=== PATIENT | male | born 1950 | race Caucasian/White ===

== ENCOUNTER 2016-09-04 03:36 | Emergency (ER) | payer OTHER ==
[2016-09-04] MEDS ORDERED: Ketorolac INJ* 60 MG/2 ML VIAL IM ONE (04:24)
[2016-09-04 05:40] VITALS: BP 127/71
--- NOTE | 2016-09-04 08:11 | RAD ---
HISTORY: Fall COMPARISONS: None VIEWS: 4, Frontal and oblique views of the right hemithorax. FINDINGS: There is no displaced rib fracture or pneumothorax. The visualized lungs are clear. Degenerative changes are noted of the spine and right shoulder IMPRESSION: NO DISPLACED RIB FRACTURE OR PNEUMOTHORAX
--- NOTE | 2016-10-18 01:52 | ED ---
Slava Jacobsen Aidan, scribed for Onel Sorensen MD on 09/04/16 at 0437 . HPI Chest Pain - HPI Summary HPI Summary: 66 y/o male presents to the ED with a complaint of acute, constant, mild (07/27) , right-sided, sharp ribcage pain that began 2 days ago. Yesterday, he tool Tylenol, which did not alleviate his pain. 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 Additionally, he has had a productive cough for the past 2 days. Pt denies any SOB/N/V/diaphoresis. - History of Current Complaint Chief Complaint: EDChestWallPain Time Seen by Provider: 09/04/16 03:54 Hx Obtained From: Patient Onset/Duration: Started Days Ago, Still Present Timing: Constant, Lasting Days Initial Severity: Mild Current Severity: Mild Pain Intensity: 1 Pain Scale Used: 0-10 Numeric Chest Pain Location: Mid Sternal - "ribcage" pain Chest Pain Radiates: No Chest Pain Radiates To:: Other - does not radiate Character: Sharp/Stabbing Aggravating Factor(s): Other: - unknown Alleviating Factor(s): Other: - unknown Associated Signs and Symptoms: Positive: Chest Pain, Cough, Productive Cough - Allergy/Home Medications Allergies/Adverse Reactions: Allergies Allergy/AdvReac Type Severity Reaction Status Date / Time No Known Allergies Allergy Verified 09/19/16 04:50 Home Medications: Home Medications Ibuprofen [Ibuprofen 200 MG] 200 mg PO DAILY PRN 09/04/16 [History Confirmed 12/01] PMH/Surg Hx/FS Hx/Imm Hx Endocrine/Hematology History: Denies: Hx Anticoagulant Therapy, Hx Diabetes, Hx Thyroid Disease Cardiovascular History: Reports: Hx Hypertension - Hx OF , MEDS D/C, STATES BP GOOD Denies: Hx Congestive Heart Failure, Hx Deep Vein Thrombosis, Hx Myocardial Infarction, Hx Pacemaker/ICD Respiratory History: Denies: Hx Asthma, Hx Chronic Obstructive Pulmonary Disease (COPD), Hx Lung Cancer, Hx Pneumonia, Hx Pulmonary Embolism GI History: Reports: Other GI Disorders - RIGHT INGUINAL HERNIA REPAIR 1986 Denies: Hx Gall Bladder Disease, Hx Gastrointestinal Bleed, Hx Ulcer, Hx Urosepsis History: Reports: Hx Kidney Stones, Other Problems/Disorders - ENLARGED PROSTATE Denies: Hx Renal Disease Musculoskeletal History: Reports: Hx Arthritis - KNEES, HANDS, GENERALIZED, Other Musculoskeletal History - 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 [id number] Sensory History: Reports: Hx Cataracts - BEGINNING OF, MILD 2014, Hx Contacts or Glasses - GLASSES Denies: Hx Hearing Aid Opthamlomology History: Reports: Hx Cataracts - BEGINNING OF, MILD 2014, Hx Contacts or Glasses - GLASSES Neurological History: Reports: Other Neuro Impairments/Disorders - 2010 FELL INJURED LEFT SHOULDER SKIN TINGLES Denies: Hx Dementia, Hx Migraine, Hx Seizures, Hx Transient Ischemic Attacks (TIA) Psychiatric History: Denies: Hx Anxiety, Hx Depression, Hx Schizophrenia, Hx Bipolar Disorder - Surgical History Surgery Procedure, Year, and Place: 1949 REATTACHMENT [place] RIGHT HAND- - [facility] [place]. 1986 RIGHT [place]GU[place] [facility] [place]. 1984 & 1997 [place] [facility] [place]. 2009 PARTIAL AMPUTATION OF LEFT THUMB- [facility]. 09/2014 LEFT TOTAL HIP REPLACEMENT- [facility], [facility]. 12/12/2015 BLADDER STONE REMOVED [facility] Hx Anesthesia Reactions: No - Immunization History Date of Tetanus Vaccine: utd Date of Influenza Vaccine: utd Infectious Disease History: No Infectious Disease History: Denies: Hx Hepatitis, Hx Human Immunodeficiency Virus (HIV), Traveled Outside the [place] in Last 30 Days - Family History Known Family History: Positive: Cardiac Disease Negative: Hypertension, Diabetes - Social History Occupation: Retired Lives: With Family Alcohol Use: Daily Alcohol Amount: 2 BEERS/DAY Substance Use Type: Reports: None Smoking Status (MU): Never Smoked Tobacco Have You Smoked in the Last Year: No Review of Systems Constitutional: Negative Eyes: Negative ENT: Negative Positive: Chest Pain. Negative: Palpitations Positive: Cough. Negative: Shortness Of Breath Gastrointestinal: Negative Genitourinary: Negative Musculoskeletal: Negative Skin: Negative Neurological: Negative Psychological: Normal All Other Systems Reviewed And Are Negative: Yes Physical Exam Triage Information Reviewed: Yes Vital Signs On Initial Exam: Initial Vitals Temp Pulse Resp BP Pulse Ox 97.8 F 64 16 179/83 98 09/04/16 03:40 09/04/16 03:40 09/04/16 03:40 09/04/16 03:40 09/04/16 03:40 Vital Signs Reviewed: Yes Appearance: Positive: Well-Appearing, No Pain Distress Skin: Positive: Warm Head/Face: Positive: Normal Head/Face Inspection Eyes: Positive: YASMINE ENT: Positive: Hearing grossly normal Neck: Positive: Supple Respiratory/Lung Sounds: Positive: Clear to Auscultation, Breath Sounds Present Cardiovascular: Positive: RRR Abdomen Description: Positive: Nontender, Soft Bowel Sounds: Positive: Present Musculoskeletal: Positive: Strength/ROM Intact Neurological: Positive: Sensory/Motor Intact, Alert, Oriented to Person Place, Time Psychiatric: Positive: Affect/Mood Appropriate - [place] Coma Scale Coma Scale Total: 15 Diagnostics - Vital Signs Vital Signs Temp Pulse Resp BP Pulse Ox 09/04/16 03:40 97.8 F 64 16 179/83 98 - Laboratory Lab Statement: Any lab studies that have been ordered have been reviewed, and results considered in the medical decision making process. - Radiology CHEST XR Xray Interpretation: No Acute Changes - IMPRESSION: NEGATIVE Radiology Interpretation Completed By: ED Physician - DR SORENSEN - EKG EKG 0350 Cardiac Rate: NL - 62 BPM EKG Rhythm: Sinus Rhythm EKG Interpretation: NORMAL Chest Pain Course/Dx - Diagnoses Provider Diagnoses: Chest wall pain Discharge - Discharge Plan Condition: Stable Disposition: HOME Discharge Disposition Comment: Please follow up with your primary care physician. Patient Education Materials: Chest Wall Pain (ED) Referrals: Leroy Harris MD [Primary Care Provider] - The documentation as recorded by the Slava clayton Aidan accurately reflects the service I personally performed and the decisions made by , Onel Sorensen MD.
== END 2016-09-04 05:38 | disposition home or self-care (01) ==
LOC: ED 03:36
DX: R07.89 Other chest pain (principal); R05 Cough
CPT/HCPCS: 93005; 96374; 99283; J1885

== ENCOUNTER 2016-09-19 04:38 | Inpatient (IN) | payer OTHER ==
[2016-09-19] MEDS ORDERED: Morphine INJ* 4 MG/ML 1 ML CARPUJECT IV ONE (04:54)
[2016-09-19 05:17] LABS: Hematocrit 38 % (42-52); Hemoglobin 12.5 g/dl (14.0-18.0); Mean Corpuscular HGB Conc 33 g/dl (31-36); Mean Corpuscular Hemoglobin 31 pg (27-31); Mean Corpuscular Volume 93 fL (80-94); Mean Platelet Volume 9 um3 (7.4-10.4); Red Blood Count 4.03 10^6/ul (4.0-5.4); Red Cell Distribution Width 13 % (10.5-15); White Blood Count 12.6 10^3/ul (3.5-10.8)
[2016-09-19 05:19] LABS: Comments Flag Yes
[2016-09-19 05:20] LABS: Add Diff/Slide Review? Slide Review Added
--- NOTE | 2016-09-19 05:21 | ED ---
Cheryl Jacobsen SooYoung, scribed for Onel Sorensen MD on 09/19/16 at 0458 . HPI Chest Pain - HPI Summary HPI Summary: A 66 y/o M SLOANE presents to ED with R-sided chest pain radiating to his kidneys onset 033. Pert PMHx: recent dx of two masses in R lobe of lung. Pain is described as sharp. Has not taken any pain medication. He is scheduled for a needle biopsy tomorrow. - History of Current Complaint Chief Complaint: EDChestWallPain Time Seen by Provider: 09/19/16 04:42 Hx Obtained From: Patient, Medical Records Onset/Duration: Started Hours Ago, Still Present Current Severity: Severe Pain Intensity: 8 Pain Scale Used: 0-10 Numeric Chest Pain Location: Right Lateral Chest Pain Radiates: Yes Chest Pain Radiates To:: Flank - R kidney Character: Sharp/Stabbing - Allergy/Home Medications Allergies/Adverse Reactions: Allergies Allergy/AdvReac Type Severity Reaction Status Date / Time No Known Allergies Allergy Verified 09/19/16 04:50 PMH/Surg Hx/FS Hx/Imm Hx Previously Healthy: No Endocrine/Hematology History: Denies: Hx Anticoagulant Therapy, Hx Diabetes, Hx Thyroid Disease Cardiovascular History: Reports: Hx Hypertension - Hx OF , MEDS D/C, STATES BP GOOD Denies: Hx Congestive Heart Failure, Hx Deep Vein Thrombosis, Hx Myocardial Infarction, Hx Pacemaker/ICD Respiratory History: Denies: Hx Asthma, Hx Chronic Obstructive Pulmonary Disease (COPD), Hx Lung Cancer, Hx Pneumonia, Hx Pulmonary Embolism GI History: Reports: Other GI Disorders - RIGHT INGUINAL HERNIA REPAIR 1986 Denies: Hx Gall Bladder Disease, Hx Gastrointestinal Bleed, Hx Ulcer, Hx Urosepsis History: Reports: Hx Kidney Stones, Other Problems/Disorders - ENLARGED PROSTATE Denies: Hx Dialysis, Hx Renal Disease Musculoskeletal History: Reports: Hx Arthritis - KNEES, HANDS, GENERALIZED, Other Musculoskeletal History - 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 [id number] Sensory History: Reports: Hx Cataracts - BEGINNING OF, MILD 2014, Hx Contacts or Glasses - GLASSES Denies: Hx Hearing Aid Opthamlomology History: Reports: Hx Cataracts - BEGINNING OF, MILD 2014, Hx Contacts or Glasses - GLASSES Neurological History: Reports: Other Neuro Impairments/Disorders - 2010 FELL INJURED LEFT SHOULDER SKIN TINGLES Denies: Hx Dementia, Hx Migraine, Hx Seizures, Hx Transient Ischemic Attacks (TIA) Psychiatric History: Denies: Hx Anxiety, Hx Depression, Hx Schizophrenia, Hx Bipolar Disorder - Surgical History Surgery Procedure, Year, and Place: 1949 REATTACHMENT [place] RIGHT HAND- - [place]. 1986 RIGHT INGUINAL HERN[place] REPAIR- [place]. 1984 & 1997 BILATERAL [place]COPIC [place] AND [facility]. 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 09/2014 LEFT TOTAL HIP REPLACEMENT- [facility] [place]. 12/12/2015 BLADDER STONE REMOVED [facility] Hx Anesthesia Reactions: No - Immunization History Date of Tetanus Vaccine: utd Date of Influenza Vaccine: utd Infectious Disease History: Denies: Hx Hepatitis, Hx Human Immunodeficiency Virus (HIV), Traveled Outside the [place] in Last 30 Days - Family History Known Family History: Positive: Cardiac Disease Negative: Hypertension, Diabetes - Social History Occupation: Retired Lives: With Family Alcohol Use: Daily Alcohol Amount: 2 BEERS/DAY Substance Use Type: Reports: None Smoking Status (MU): Never Smoked Tobacco Have You Smoked in the Last Year: No Review of Systems Negative: Fever Positive: Chest Pain All Other Systems Reviewed And Are Negative: Yes Physical Exam Triage Information Reviewed: Yes Vital Signs On Initial Exam: Initial Vitals Temp Pulse Resp BP Pulse Ox 98.8 F 75 23 140/64 98 09/19/16 04:40 09/19/16 04:40 09/19/16 04:40 09/19/16 04:40 09/19/16 04:40 Vital Signs Reviewed: Yes Appearance: Positive: Well-Appearing, Pain Distress - mild discomfort Skin: Positive: Warm Head/Face: Positive: Normal Head/Face Inspection Eyes: Positive: YASMINE ENT: Positive: Hearing grossly normal Neck: Positive: Supple Respiratory/Lung Sounds: Positive: Clear to Auscultation, Breath Sounds Present Cardiovascular: Positive: RRR Abdomen Description: Positive: Nontender, Soft Bowel Sounds: Positive: Present Musculoskeletal: Positive: Strength/ROM Intact Neurological: Positive: Alert, Oriented to Person Place, Time, Normal Gait - Brooke Coma Scale Coma Scale Total: 15 Diagnostics - Vital Signs Vital Signs Temp Pulse Resp BP Pulse Ox 09/19/16 04:40 98.8 F 75 23 140/64 98 - Laboratory Lab Results: Lab Results 09/19/16 Range/Units 05:05 WBC 12.6 H (3.5-10.8) 10^3/ul RBC 4.03 (4.0-5.4) 10^6/ul Hgb 12.5 L (14.0-18.0) g/dl Hct 38 L (42-52) % MCV 93 (80-94) fL MCH 31 (27-31) pg MCHC 33 (31-36) g/dl RDW 13 (10.5-15) % Plt Count 424 (150-450) 10^3/ul MPV 9 (7.4-10.4) um3 Neut % (Auto) 88.1 H (38-83) % Lymph % (Auto) 5.8 L (25-47) % [place] % (Auto) 4.8 (1-9) % Eos % (Auto) 1.0 (0-6) % Baso % (Auto) 0.3 (0-2) % Absolute Neuts (auto) 11.1 H (1.5-7.7) 10^3/ul Absolute Lymphs (auto) 0.7 L (1.0-4.8) 10^3/ul Absolute Monos (auto) 0.6 (0-0.8) 10^3/ul Absolute Eos (auto) 0.1 (0-0.6) 10^3/ul Absolute Basos (auto) 0 (0-0.2) 10^3/ul Absolute Nucleated RBC 0 10^3/ul Nucleated RBC % 0 Result Diagrams: 09/19/16 05:05 09/19/16 05:05 Lab Statement: Any lab studies that have been ordered have been reviewed, and results considered in the medical decision making process. - Radiology CXR Xray Interpretation: Positive (See Comments) - MASS, RIGHT MIDDLE LUNG FIELD ? rml infiltrate Radiology Interpretation Completed By: ED Physician Chest Pain Course/Dx - Diagnoses Provider Diagnoses: Pneumonia - Provider Notifications Discussed Care Of Patient With: Spoke to Dr. Easley hospitalist Time Discussed With Above Provider: 05:44 Instructed by Provider To: Admit As Inpatient Discharge - Discharge Plan Condition: Fair Disposition: ADMITTED TO [facility] Referrals: Leroy Harris MD [Primary Care Provider] - The documentation as recorded by the Cheryl clayton SooYoung accurately reflects the service I personally performed and the decisions made by , Onel Sorensen MD.
[2016-09-19 05:26] LABS: Potassium 4.3 mmol/L (3.5-5.0)
[2016-09-19 05:27] LABS: Albumin 3.4 g/dL (3.2-5.2); Calcium 8.6 mg/dL (8.6-10.3); EGFR African American 83.8 (>60); EGFR Non-African American 65.2 (>60); Globulin 3.6 g/dL (2-4); Total Bilirubin 0.4 mg/dL (0.2-1.0)
[2016-09-19] MEDS ORDERED: Azithromycin IV(*) 500 MG in NS 0.9% 250 ML* 250 ML IVPB ONE (05:43)
[2016-09-19] MEDS ORDERED: cefTRIAXone(*) 1 GM in NS 0.9% 50 ML* 50 ML IVPB ONE (05:43)
[2016-09-19] MEDS ORDERED: HYDROmorphone INJ* 1 MG/ML CARPUJECT SYRINGE IV SLOW PU ONE (05:56)
[2016-09-19 06:13] LABS: Eosinophils % 1 % (0-6); Immature Granulocytes 1 % (0-9); Neutrophil % 82 % (38-83)
[2016-09-19 06:14] LABS: RBC Morphology Normal (Normal)
[2016-09-19] MEDS ORDERED: HYDROmorphone INJ* 1 MG/ML CARPUJECT SYRINGE IV SLOW PU PRN (06:16)
[2016-09-19] MEDS ORDERED: Diclofenac Sodium EC TAB* 25 MG PO PRN (06:44)
--- NOTE | 2016-09-19 07:28 | RAD ---
INDICATION: Chest pain. COMPARISON: Comparison is made with a prior chest x-ray study from July 01, [address] of the chest from September 13, 2016. TECHNIQUE: Dual-energy PA and lateral views of the chest were obtained. FINDINGS: The heart is within normal limits in size and unchanged. There is a focal area of increased density present at the medial right lung base. This correlates with the mass noted on the recent prior CT of the chest. There appears to be an adjacent infiltrate. The left lung is clear. No pleural effusion is seen. IMPRESSION: THERE IS INCREASED DENSITY AT THE RIGHT LUNG BASE WHICH CORRELATES WITH THE MASS ON THE PRIOR CT STUDY. THERE APPEARS TO BE A NEW ADJACENT INFILTRATE. NOTED IN THE PRIOR CT EXAM REPORT RECOMMEND HISTOLOGIC SAMPLING OF THE MASS.
[2016-09-19] MEDS ORDERED: Enoxaparin(*) 40 MG/0.4 ML SYR SUBCUT SCH (08:00)
[2016-09-19] MEDS: Tamsulosin CAP* 0.4 MG PO SCH (09:45)
[2016-09-19] MEDS: Cholecalciferol TAB* 1000 UNITS PO SCH (09:45)
--- NOTE | 2016-09-19 11:14 | HP ---
HISTORY AND PHYSICAL: DATE OF ADMISSION: 09/19/16 CHIEF COMPLAINT: Chest pain. HISTORY OF PRESENT ILLNESS: Mr. Mcdonnell is a 66-year-old man with recent normal findings on a chest CT, who woke with severe pain in his right lower thorax at around 3 a.m. this morning. The pain was 10/10 and worse with coughing or deep breath as well as associated with shortness of breath. The patient could not get comfortable on any position and as a result his called the ambulance and he was brought to the emergency department. The patient reports he has been having a cough for about 2 to 3 weeks when he was seen in the emergency department here about 10 days ago. At that time, there was a concern of an injury to the chest wall and he had rib films that were negative for fracture. He saw the nurse practitioner in his primary care office subsequent to that and reported cough productive of pink sputum and thick sputum. A CT of the chest was ordered at that time, which revealed a nodular mass in the right lower lobe. The patient has a biopsy of this mass planned on Tuesday. The patient denies any history of lung disease such as asthma or COPD. He does report he has had bronchitis 1 to 2 times per year since age of 9, and he reports that he grew up living near a [facility]. PAST MEDICAL HISTORY: Includes nephrolithiasis, BPH, and a bout of Lyme disease from 2008 to 2011, osteoarthritis. PAST SURGICAL HISTORY: Left lithotripsy in February 2016 and a hip replacement on the left 2014. MEDICATIONS: On admission, 1. Diclofenac 50 mg p.o. daily. 2. Tamsulosin 0.4 mg p.o. daily. ALLERGIES: None. FAMILY HISTORY: Notable for mother who had history of fungal sinus infection, mother had colon cancer and then had liver metastasis about 10 years later. She ended up dying of liver failure. Father of emphysema that led to systemic infection. 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 He is ,e has 2 children from previous marriage. The patient never smoked tobacco. Drinks alcohol about 2 drinks per day. No recreational drugs. REVIEW OF SYSTEMS: The patient denies any fevers, but he has had sweats and chills over the last week. The patient denies anorexia, he has been eating well. The patient denies any peripheral edema. He has had pleuritic chest pain mainly in the last 12 hours. The patient denies any nausea, vomiting, diarrhea, or constipation. He does report this cough for 3 weeks. Denies any vivian hemoptysis but he has had pink sputum. The patient denies any hematuria or dysuria. Remainder of a 14-point review of systems negative other than mentioned in the HPI. PHYSICAL EXAMINATION GENERAL: He is an elder gentleman, in no respiratory distress but wincing in pain. VITAL SIGNS: Temperature is 38.2, pulse 75, respirations 24 to 29, blood pressure is 134/65, O2 sat is 99%. HEENT: Head is normocephalic, atraumatic. Sclerae anicteric. Pupils are equal , round, and reactive to light and accommodation. Oropharynx is moist. No lesions. NECK: No JVD. No carotid bruits. No thyromegaly. There is no cervical adenopathy. No axillary adenopathy. LUNGS: Dull to percussion at the right base. Diminished breath sounds but no rales or wheezes. HEART: Regular rate and rhythm without murmurs or gallops. ABDOMEN: Soft, nontender, nondistended. Positive bowel sounds. No hepatosplenomegaly. EXTREMITIES: No peripheral edema. Dorsalis pedis pulses 1+ bilaterally. MUSCULOSKELETAL: Notable for the tip of the left thumb amputated and well healed. There is also a large scar in the right arm from previous reconstructive surgery. NEUROLOGIC: Cranial nerves II through XII are intact. Motor strength is 5/5 throughout. Deep tendon reflexes are symmetric. PSYCHIATRIC: Alert and oriented x3. He is quite irritable. DIAGNOSTIC STUDIES/LAB DATA: Sodium 132, potassium 4.3, chloride 100, bicarb 27, BUN 19, creatinine 1.12, glucose 145, albumin 3.4, AST 12, ALT 13, bilirubin 0.4. White count 12.6, hemoglobin 12.5, hematocrit 38.7, platelets 424. Chest x-ray shows a right lower lobe nodular infiltrate. ASSESSMENT AND PLAN: A 66-year-old man presenting with pleuritic pain, fever, and a lung mass on CT chest on September 13. Differential would include lung cancer with a postobstructive pneumonia. He also may have a primary pneumonic process tuberculosis fungal infection. The patient will be admitted and treated for pneumonia with ceftriaxone and azithromycin. He will also have supplemental oxygen and pain control. The patient will have biopsy tomorrow as planned, and we will we will ask interventional radiology to send sample for AFB , fungal, bacterial cultures as well as cytology. Code status is full. DVT prophylaxis should be with sequential compression devices and Lovenox given that he may have lung cancer and has a high risk of PE. CC: Dr. Harris; Dr. Wang * [id number]/[facility] #: [id number] [facility]
[2016-09-19] MEDS: HYDROmorphone INJ* 1 MG/ML CARPUJECT SYRINGE IV SLOW PU PRN ×4 (11:17→21:41)
--- NOTE | 2016-09-19 14:06 | RAD ---
INDICATION: Right flank abdominal pain. COMPARISON: Comparison is made with a prior CT of the chest from September 13, [address] of the abdomen and pelvis from January 21, 2016. TECHNIQUE: A CT scan of the abdomen and pelvis was performed without intravenous or oral contrast. Contiguous axial sections were obtained from the lung bases through the symphysis pubis. Images were reconstructed in the coronal and sagittal planes. FINDINGS: Images at the lung bases again demonstrate a mass present anteriorly at the medial right lung base. This measures 7.0 x 5.2 cm in size and has increased in size from the prior exam previously measuring 5.7 x 4.2 cm. This is not as well-defined as on the prior contrast enhanced study. There is a second mass located posterior to this area which measures 2.9 x 2.4 cm in size which has also increased in size and previously measured 1.8 x 1.2 cm in size. There is a new infiltrate at the right lung base and a new small to moderate size right pleural effusion. The liver is mildly enlarged. There is a solitary coarse calcification centrally within the liver. No other focal abnormalities are seen on this noncontrast study. The spleen is within normal limits in size. The gallbladder appears contracted. No calcified gallstones are seen. The pancreas appears to be within normal limits. The adrenal glands are enlarged suggesting the possibility of a adrenal gland hyperplasia. This is unchanged from the prior study. There is a 0.5 cm calculus present in the upper pole of the right kidney which is unchanged. There is a hypodense area present in the mid pole of the right kidney measuring 1.2 x 0.8 cm in size likely representing a cyst on this noncontrast study although nonspecific. There are several left peripelvic renal cysts present. No hydronephrosis is seen. No ureteral or bladder calculi are seen. The aorta is normal in caliber with mild calcific plaque present. No significant enlarged retroperitoneal lymph nodes are seen. The stomach, small and large bowel appear nondistended. There is a small hiatal hernia present. The appendix appears to be within normal limits. There is moderate to severe descending and sigmoid diverticulosis without evidence for diverticulitis. No free intraperitoneal air or fluid is seen. The patient is status post total right hip replacement surgery. No significant focal osseous and normalities are seen. IMPRESSION: 1. INTERVAL INCREASE IN SIZE OF THE MASSES PRESENT AT THE RIGHT LUNG BASE. RECOMMEND HISTOLOGIC SAMPLING. 2. NEW RIGHT PLEURAL EFFUSION AND RIGHT BASILAR INFILTRATE. 3. NONOBSTRUCTING RIGHT RENAL CALCULUS.
--- NOTE | 2016-09-19 17:34 | PN ---
Progress Note - Progress Note Note: Pt seen briefly this afternoon to discuss pain control and plans for tomorrow. Pt's pain has been under slightly better control. He describes pain at the right lower ribs laterally wrapping around to the front slightly. He underwent CT abd/pelvis to r/o ureteral stone-no ureteral stone was identified. I suspect his pain is pleuritic in nature as it hurts the most to take a deep breath. The CT today showed that the 2 previously identified masses are larger than 6 days ago now with right small to moderate pleural effusion with right basilar infiltrate. Continue ceftriaxone and azithromycin. Will touch base with Dr. Daugherty tomorrow for Abx guidance. Plan to get biopsy tomorrow.
[2016-09-19 17:45] LABS: Urine Bilirubin Negative (Negative); Urine Glucose Negative (Negative); Urine Nitrite Negative (Negative)
[2016-09-20] MEDS: HYDROmorphone INJ* 1 MG/ML CARPUJECT SYRINGE IV SLOW PU PRN ×6 (01:53→20:05)
[2016-09-20 06:53] LABS: Hematocrit 38 % (42-52); Hemoglobin 12.3 g/dl (14.0-18.0); Mean Corpuscular HGB Conc 32 g/dl (31-36); Mean Corpuscular Hemoglobin 30 pg (27-31); Mean Corpuscular Volume 94 fL (80-94); Mean Platelet Volume 9 um3 (7.4-10.4); Red Blood Count 4.07 10^6/ul (4.0-5.4); Red Cell Distribution Width 13 % (10.5-15); White Blood Count 24.6 10^3/ul (3.5-10.8)
[2016-09-20 07:09] LABS: Comments Flag Yes
[2016-09-20 07:10] LABS: Add Diff/Slide Review? Slide Review Added; BUN/Creatinine Ratio 18.4 (8-20); Calcium 8.7 mg/dL (8.6-10.3); EGFR African American 97.8 (>60); EGFR Non-African American 76.1 (>60); Potassium 4.4 mmol/L (3.5-5.0)
[2016-09-20] MEDS ORDERED: Azithromycin IV(*) 500 MG in NS 0.9% 250 ML* 250 ML IVPB SCH ×2 (08:00→18:30)
[2016-09-20] MEDS: cefTRIAXone VIAL(*) 1,000 MG in NS 0.9% 50 ML* 50 ML IVPB SCH (08:00)
[2016-09-20] MEDS: Tamsulosin CAP* 0.4 MG PO SCH ×2 (08:57→09:17)
[2016-09-20] MEDS: Cholecalciferol TAB* 1000 UNITS PO SCH ×2 (08:57→09:17)
--- NOTE | 2016-09-20 09:05 | PN ---
Subjective Date of Service: 09/20/16 Interval History: Pt is feeling ok. He notes that he has had some intermittent chest pressure on both the R and L sides. He has intermittently coughed up thick [place] sputum. He feels his sinuses are "plugged" and he is having post nasal drip that he is having a hard time clearing. He had a BM this AM. Objective Active Medications: Acetaminophen (Tylenol Tab*) 650 mg PO Q4H PRN PRN Reason: FEVER/HEADACHE Cholecalciferol (Vitamin D Tab*) 1,000 units PO DAILY [facility] Last Admin: 09/20/16 08:57 Dose: 1,000 units Hydromorphone HCl (Dilaudid Iv*) 1 mg IV SLOW PU Q2H PRN PRN Reason: PAIN Last Admin: 09/20/16 08:58 Dose: 1 mg Ceftriaxone Sodium 1,000 mg/ (Sodium Chloride) 50 mls @ 200 mls/hr IVPB Q24H [facility] Last Admin: 09/20/16 08:00 Dose: 200 mls/hr Azithromycin 500 mg/ Sodium (Chloride) 250 mls @ 250 mls/hr IVPB Q24H [facility] Last Admin: 09/20/16 08:32 Dose: 250 mls/hr Tamsulosin HCl (Flomax Cap*) 0.4 mg PO DAILY [facility] Last Admin: 09/20/16 08:57 Dose: 0.4 mg Vital Signs 09/19/16 09/19/16 09/19/16 09:22 09:32 09:34 Temperature Pulse Rate Respiratory 16 16 16 Rate Blood Pressure (mmHg) O2 Sat by Pulse Oximetry 09/19/16 09/19/16 09/19/16 11:17 12:06 15:31 Temperature 98.0 F Pulse Rate 68 Respiratory 16 16 16 Rate Blood Pressure 125/66 (mmHg) O2 Sat by Pulse 93 Oximetry 09/19/16 09/19/16 09/19/16 17:21 18:16 19:38 Temperature Pulse Rate Respiratory 16 16 18 Rate Blood Pressure (mmHg) O2 Sat by Pulse Oximetry 09/19/16 09/19/16 09/19/16 20:00 20:20 20:38 Temperature 98.7 F Pulse Rate 69 Respiratory 18 18 Rate Blood Pressure 122/61 (mmHg) O2 Sat by Pulse 90 Oximetry 09/19/16 09/19/16 09/19/16 21:38 21:41 22:38 Temperature Pulse Rate Respiratory 18 18 20 Rate Blood Pressure (mmHg) O2 Sat by Pulse Oximetry 09/19/16 09/19/16 09/19/16 22:41 23:08 23:19 Temperature 98.2 F Pulse Rate 70 Respiratory 20 20 Rate Blood Pressure 171/84 (mmHg) O2 Sat by Pulse 94 94 Oximetry 09/20/16 09/20/16 09/20/16 01:53 02:53 04:02 Temperature 98.2 F Pulse Rate 77 Respiratory 20 20 22 Rate Blood Pressure 157/76 (mmHg) O2 Sat by Pulse 88 Oximetry 09/20/16 09/20/16 09/20/16 04:05 05:05 08:03 Temperature 97.3 F Pulse Rate 76 Respiratory 20 20 24 Rate Blood Pressure 133/71 (mmHg) O2 Sat by Pulse 91 93 Oximetry 09/20/16 08:58 Temperature Pulse Rate Respiratory 18 Rate Blood Pressure (mmHg) O2 Sat by Pulse Oximetry Oxygen Devices in Use Now: None Appearance: Middle aged male lying in bed, NAD Eyes: No Scleral Icterus Ears/Nose/Mouth/Throat: Mucous Membranes Moist Respiratory: Symmetrical Chest Expansion and Respiratory Effort, - - markedly diminished breath sounds R base otherwise CTA Cardiovascular: NL Sounds; No Murmurs; No JVD, - - irreuglar HR, not tachycardic Abdominal: NL Sounds; No Tenderness; No Distention Extremities: No Clubbing, Cyanosis Skin: No Rash or Ulcers, No Nodules or Sclerosis Neurological: Alert and Oriented x 3 Result Diagrams: 09/20/16 06:28 09/20/16 06:28 Additional Lab and Data: Lab Results 09/19/16 Range/Units 05:05 WBC 12.6 H (3.5-10.8) 10^3/ul RBC 4.03 (4.0-5.4) 10^6/ul Hgb 12.5 L (14.0-18.0) g/dl Hct 38 L (42-52) % MCV 93 (80-94) fL MCH 31 (27-31) pg MCHC 33 (31-36) g/dl RDW 13 (10.5-15) % Plt Count 424 (150-450) 10^3/ul MPV 9 (7.4-10.4) um3 Neut % (Auto) 88.1 H (38-83) % Lymph % (Auto) 5.8 L (25-47) % [place] % (Auto) 4.8 (1-9) % Eos % (Auto) 1.0 (0-6) % Baso % (Auto) 0.3 (0-2) % Absolute Neuts (auto) 11.1 H (1.5-7.7) 10^3/ul Absolute Lymphs (auto) 0.7 L (1.0-4.8) 10^3/ul Absolute Monos (auto) 0.6 (0-0.8) 10^3/ul Absolute Eos (auto) 0.1 (0-0.6) 10^3/ul Absolute Basos (auto) 0 (0-0.2) 10^3/ul Absolute Nucleated RBC 0 10^3/ul Nucleated RBC % 0 Assess/Plan/Problems-Billing Mr Mcdonnell is a 66 yo M who has a h/o OA, nephrolithiasis and history of lyme disease who presented to the ER wtih c/o severe R sided chest pain in the setting of recently identified RLL lung masses. He was admitted for further management and evaluation of the lung mass and possible post obstructive pneumonia. - Patient Problems (1) RLL pneumonia Current Visit: Yes Status: Acute Code(s): J18.1 - LOBAR PNEUMONIA, UNSPECIFIED ORGANISM SNOMED Code(s): 242123696 Comment: The patient's CT from yesterday is significantly changed from the CT scan done 09/13/15. His WBC count worsened today despite being on azithromycin and ceftriaxone. Will get sputum sample, send urine for legionella and S.pneumoniae antigens. Will get ID consult-? change antibiotic regimen. At time of pt's biopsy will ask for sample to also be sent for gram stain and culture. (2) Lung mass Current Visit: Yes Status: Acute Code(s): R91.8 - OTHER NONSPECIFIC ABNORMAL FINDING OF LUNG FIELD SNOMED Code(s): 214252962 Comment: Plan is for FNA today. I spoke with Dr. Dupree about sending bacterial culture, fungal culture and acid fast culture and smear in addition to sending the material to pathology. Dr. Dupree also questioned if bronchoscopy could be useful now that it seems the process is more inflammatory. I spoke with Dr. Manuel who felt that it might be difficult to get to the lesions in question given their location and recommends continuing with the FNA. (3) BPH (benign prostatic hyperplasia) Current Visit: Yes Status: Acute Code(s): N40.0 - BENIGN PROSTATIC HYPERPLASIA WITHOUT LOWER URINRY TRACT SYMP SNOMED Code(s): 632778862 Comment: Continue flomax. (4) DVT prophylaxis Current Visit: Yes Status: Acute Code(s): SEV0672 - SNOMED Code(s): 297520233 Comment: none secondary to FNA planned for today (5) Full code status Current Visit: Yes Status: Acute Code(s): Z78.9 - OTHER SPECIFIED HEALTH STATUS SNOMED Code(s): 985222249
[2016-09-20] MEDS ORDERED: LORazepam INJ* 2 MG/ML 1 ML VIAL IV PUSH ONE (14:00)
[2016-09-20] MEDS ORDERED: Naloxone* 0.4 MG/ML 1 ML VIAL ONE (14:28)
[2016-09-20] MEDS ORDERED: fentaNYL* 50 MCG/ML 2 ML VIAL (100 MCG VIAL) ONE (14:28)
[2016-09-20] MEDS ORDERED: Vancomycin(*) 1,500 MG in NS 0.9% 250 ML* 250 ML IVPB ONE (16:43)
--- NOTE | 2016-09-20 17:10 | RAD ---
INDICATION: Indeterminant masslike consolidation RIGHT middle lobe. Fine needle aspiration requested. COMPARISON: September 19, 2016 CT abdomen and September 13, 2016 CT chest. TECHNIQUE: CT thorax with CT fluoroscopy. 21 seconds fluoroscopy. Written informed consent obtained. Timeout performed. PROCEDURE: Masslike region of consolidation at the RIGHT middle lobe localized on preliminary client service consultant CT. Following routine aseptic skin prep and 18-gauge 7 cm coaxial needle was introduced into the superficial margin of the lesion under CT fluoroscopy guidance. Two 20-gauge fine needle aspiration passes were made. Samples deemed sufficient by pathology. In addition approximate 1 mL of cloudy beige pleural fluid was aspirated while removing the 18-gauge introducer needle. Samples submitted for analysis as requested by the referring physician. Post procedure CT CT thorax negative for pneumothorax. A few punctate gas bubbles are noted along the biopsy tract. Moderately large RIGHT pleural effusion with suggestion of peripheral loculation is grossly unchanged compared with the visualized inferior thorax on the September 19, 2016 CT abdomen and grossly new compared with the September 13, [address] Procedure well tolerated without immediate complication. IMPRESSION: Successful CT-guided fine-needle aspiration of the RIGHT middle lobe. Given size of RIGHT pleural effusion consider clinical or ultrasound guided therapeutic thoracentesis. Results discussed with Dr. Garcia immediately following the procedure. CPT II Codes: 6045F
[2016-09-20 18:02] LABS: C Reactive Protein 370.78 mg/L (< 5.00)
[2016-09-20 18:03] LABS: C Reactive Protein 152.91 mg/L (< 5.00)
--- NOTE | 2016-09-20 20:23 | CONS ---
PULMONARY CONSULTATION REPORT: DATE OF CONSULT: 09/20/16 CONSULTATION REQUESTED BY: Dr. Elizabeth Garcia. REASON FOR CONSULT: Evaluation of abnormal CT. HISTORY OF PRESENT ILLNESS: The patient is a 66-year-old male, nonsmoker with recent onset of cough for the past 2 weeks. The patient was recently evaluated in the ED for productive cough. 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 The patient had x-ray of the ribs performed in the ED and was discharged without any recommendations. The patient continued to have worsening cough and presented to his primary care practitioner. The patient was complaining of productive cough with pink phlegm at that time. A CT scan of the chest was ordered at that time which showed two mass lesions in the right lower lobe, one of which is bigger compared to the other. The patient continued to have worsening symptoms and was sent in to the ED for further evaluation. The patient had repeat CT scan in the ED. I have personally reviewed the current CT scan in comparison with prior scan from 09/13. The patient was noted to have large lung mass measuring 7 x 5 cm in medial aspect of right lung base. The patient also noted to have another mass measuring about 5 x 4 cm. The patient also noted to have lhtfa-st-onuaavcr sized right pleural effusion. The patient after the first CT scan was scheduled to have CT-guided lung biopsy. Biopsy was scheduled for today. The patient was also noted to have significant increase in size of the lung masses in a week. The patient was seen and examined at bedside earlier today. The patient reported worsening cough and shortness of breath. He has also been requiring O2 supplementation. The patient reported chills and night sweats recently. He denied documented fever. The patient denied recent travel or prior known history of TB exposure. The patient denied loss of appetite, reported 5- to 6-pound weight loss recently. The patient was initiated on broad -spectrum antibiotics for possible infection. The patient denied poor oral hygiene or dental issues recently. The patient drinks occasional alcohol; however, denies binge drinking or known history of aspiration episode. The patient also reports sinus issues and postnasal drip. He was also noted to have elevated white count. PAST MEDICAL HISTORY: 1. Nephrolithiasis. 2. BPH. 3. Lyme disease from 2008 to 2011. 4. Osteoarthritis. PAST SURGICAL HISTORY: Lithotripsy in February 2016 and hip replacement in 2014 on the left side. MEDICATIONS: 1. Diclofenac. 2. Tamsulosin. ALLERGIES: None. FAMILY HISTORY: History of fungal sinus infection in mother, history of colon cancer and liver mets in his mother. Father with history of emphysema. 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 He is , lives with his . The patient never smoked tobacco. Denies drug abuse. Drinks alcohol 2 drinks per day. REVIEW OF SYSTEMS: All 14 systems are reviewed and as per HPI. PHYSICAL EXAM: The patient in no apparent distress. Vital Signs: Temperature 97.3, pulse 76 beats per minute, respiratory rate 18 per minute, O2 sat 93% on 2 L, blood pressure 133/71. HEENT: Pupils equal, reactive to light. Mucous membranes moist. Neck: Supple. No JVD. Lungs: Diminished breath sounds in the right base. No wheeze or rales. Cardiovascular: S1, S2 present, regular. Abdomen: Soft, nontender, nondistended. Bowel sounds present. Extremities: No edema. Musculoskeletal: Normal range of motion. Neurologic: No focal deficits. Skin: No rash or bruises. DIAGNOSTIC STUDIES/LAB DATA: WBC count 24.6, hemoglobin 12.3, hematocrit 38, platelet count 410. INR 1.26. Sodium 131, potassium 4.4, chloride 98, bicarb 29, BUN 18, creatinine 0.98, glucose 149. CT scan of the chest as described above in HPI. IMPRESSION AND RECOMMENDATIONS: 66-year-old male nonsmoker with a history of regular alcohol usage admitted with shortness of breath, productive cough with interval increase in Rt sided lung masses- Infectious versus neoplastic Will broaden antibiotics. Continue with ceftriaxone. Will add vancomycin. The patient is status post CT- guided biopsy today. Specimen also sent for bacterial and AFB cultures. Continue with O2 supplementation as needed. Further receommendations pending biopsy results Thank you for allowing me to participate in the care of your patient. Will follow up with you. [id number]/CHRISTIAN #: [id number] ELLIE
[2016-09-21] MEDS: HYDROmorphone INJ* 1 MG/ML CARPUJECT SYRINGE IV SLOW PU PRN ×4 (00:14→18:34)
[2016-09-21 06:39] LABS: Comments Flag Yes; Hematocrit 36 % (42-52); Hemoglobin 11.7 g/dl (14.0-18.0); Mean Corpuscular HGB Conc 33 g/dl (31-36); Mean Corpuscular Hemoglobin 31 pg (27-31); Mean Corpuscular Volume 93 fL (80-94); Mean Platelet Volume 9 um3 (7.4-10.4); Red Blood Count 3.83 10^6/ul (4.0-5.4); Red Cell Distribution Width 13 % (10.5-15); White Blood Count 24.3 10^3/ul (3.5-10.8)
[2016-09-21 06:40] LABS: Add Diff/Slide Review? Slide Review Added
[2016-09-21 06:53] LABS: BUN/Creatinine Ratio 22.7 (8-20); Calcium 8.7 mg/dL (8.6-10.3); Potassium 4.4 mmol/L (3.5-5.0)
[2016-09-21] MEDS ORDERED: Azithromycin IV(*) 500 MG in NS 0.9% 250 ML* 250 ML IVPB SCH (08:00)
[2016-09-21] MEDS: cefTRIAXone VIAL(*) 1,000 MG in NS 0.9% 50 ML* 50 ML IVPB SCH (08:23)
[2016-09-21] MEDS: Cholecalciferol TAB* 1000 UNITS PO SCH (09:16)
[2016-09-21] MEDS: Tamsulosin CAP* 0.4 MG PO SCH ×2 (11:42→17:24)
--- NOTE | 2016-09-21 12:09 | PN ---
Subjective Date of Service: 09/21/16 Interval History: HOSPITALIST PROGRESS NOTE Objective Active Medications: Acetaminophen (Tylenol Tab*) 650 mg PO Q4H PRN PRN Reason: FEVER/HEADACHE Cholecalciferol (Vitamin D Tab*) 1,000 units PO DAILY [facility] Last Admin: 09/21/16 09:16 Dose: Not Given Hydromorphone HCl (Dilaudid Iv*) 1 mg IV SLOW PU Q2H PRN PRN Reason: PAIN Last Admin: 09/21/16 05:57 Dose: 1 mg Ceftriaxone Sodium 1,000 mg/ (Sodium Chloride) 50 mls @ 200 mls/hr IVPB Q24H [facility] Last Admin: 09/21/16 08:23 Dose: 200 mls/hr Azithromycin 500 mg/ Sodium (Chloride) 250 mls @ 250 mls/hr IVPB 0800 [facility] Last Admin: 09/21/16 09:16 Dose: 250 mls/hr Tamsulosin HCl (Flomax Cap*) 0.4 mg PO QPM [facility] Vital Signs 09/20/16 09/20/16 09/20/16 12:31 14:02 16:00 Temperature Pulse Rate Respiratory 18 18 Rate Blood Pressure (mmHg) O2 Sat by Pulse 93 Oximetry 09/20/16 09/20/16 09/20/16 17:37 18:03 19:03 Temperature 98.9 F Pulse Rate 45 Respiratory 18 20 Rate Blood Pressure 126/51 (mmHg) O2 Sat by Pulse 95 Oximetry 09/20/16 09/20/16 09/20/16 20:00 20:03 20:05 Temperature Pulse Rate Respiratory 20 20 20 Rate Blood Pressure (mmHg) O2 Sat by Pulse Oximetry 09/20/16 09/20/16 09/20/16 21:05 23:04 23:42 Temperature 98.3 F Pulse Rate 66 Respiratory 20 16 Rate Blood Pressure 103/64 (mmHg) O2 Sat by Pulse 95 95 Oximetry 09/21/16 09/21/16 09/21/16 00:14 01:14 05:57 Temperature Pulse Rate Respiratory 22 18 22 Rate Blood Pressure (mmHg) O2 Sat by Pulse Oximetry 09/21/16 09/21/16 09/21/16 06:00 06:57 10:26 Temperature 98.1 F 98.3 F Pulse Rate 67 83 Respiratory 22 20 24 Rate Blood Pressure 121/64 127/72 (mmHg) O2 Sat by Pulse 95 93 Oximetry Oxygen Devices in Use Now: None Result Diagrams: 09/21/16 06:22 09/21/16 06:22 Additional Lab and Data: Lab Results 09/19/16 Range/Units 05:05 WBC 12.6 H (3.5-10.8) 10^3/ul RBC 4.03 (4.0-5.4) 10^6/ul Hgb 12.5 L (14.0-18.0) g/dl Hct 38 L (42-52) % MCV 93 (80-94) fL MCH 31 (27-31) pg MCHC 33 (31-36) g/dl RDW 13 (10.5-15) % Plt Count 424 (150-450) 10^3/ul MPV 9 (7.4-10.4) um3 Neut % (Auto) 88.1 H (38-83) % Lymph % (Auto) 5.8 L (25-47) % [place] % (Auto) 4.8 (1-9) % Eos % (Auto) 1.0 (0-6) % Baso % (Auto) 0.3 (0-2) % Absolute Neuts (auto) 11.1 H (1.5-7.7) 10^3/ul Absolute Lymphs (auto) 0.7 L (1.0-4.8) 10^3/ul Absolute Monos (auto) 0.6 (0-0.8) 10^3/ul Absolute Eos (auto) 0.1 (0-0.6) 10^3/ul Absolute Basos (auto) 0 (0-0.2) 10^3/ul Absolute Nucleated RBC 0 10^3/ul Nucleated RBC % 0 Microbiology and Other Data: Microbiology 09/20/16 16:20 Gram Stain - Final Misc Fluid (See Comment) - Aspirate Body Fluid Culture - Preliminary No Growth Day 1 09/20/16 16:20 Acid Fast Bacilli Smear - Final Respiratory - Aspirate 09/20/16 09:39 Acid Fast Bacilli Smear - Final Respiratory 09/20/16 11:00 Legionella Urinary Antigen - Final Urine Negative Legionella Streptococcus pneumoniae Ag Screen - Final Negative S. pneumo Antigen 09/20/16 09:30 Gram Stain - Final Sputum Expectorated Assess/Plan/Problems-Billing Mr Mcdonnell is a 66 yo M who has a h/o OA, nephrolithiasis and history of lyme disease who presented to the ER wtih c/o severe R sided chest pain in the setting of recently identified RLL lung masses. He was admitted for further management and evaluation of the lung mass and possible post obstructive pneumonia.
--- NOTE | 2016-09-21 12:51 | RAD ---
Indication: Ultrasound guidance for thoracentesis to be performed by Dr. Manuel. Comparison: CT of one day prior. Technique: Single ultrasound image of the RIGHT inferior thorax. REPORT AND IMPRESSION: Large RIGHT pleural effusion visualized at the site of marking for thoracentesis corresponding with the CT finding of one day prior.
--- NOTE | 2016-09-21 13:05 | PN ---
Progress Note - Progress Note Note: Pulm consult f/u note 09/21/16. Pt seen and examined at bedside. Pt reports having significant cough which is productive. Reports feeling more tired. Breathing is slightly labored. Active Medications Generic Name Dose Route Start Last Admin Trade Name Freq PRN Reason Stop Dose Admin Acetaminophen 650 mg 09/19/16 06:17 Tylenol Tab* PO Q4H PRN FEVER/HEADACHE Cholecalciferol 1,000 units 09/19/16 09:00 09/21/16 09:16 Vitamin D Tab* PO Not Given DAILY ANSHU Hydromorphone HCl 1 mg 09/19/16 08:32 09/21/16 05:57 Dilaudid Iv* IV SLOW PU 1 mg Q2H PRN Administration PAIN Ceftriaxone Sodium 1,000 mg/ 50 mls @ 200 mls/hr 09/20/16 07:30 09/21/16 08: 23 Sodium Chloride IVPB 200 mls/hr Q24H ANSHU Administration Azithromycin 500 mg/ Sodium 250 mls @ 250 mls/hr 09/21/16 08:00 09/21/16 09: 16 Chloride IVPB 250 mls/hr 0800 ANSHU Administration Tamsulosin HCl 0.4 mg 09/21/16 18:00 Flomax Cap* PO QPM [facility] Vital Signs Temp Pulse Resp BP Pulse Ox 98.3 F 83 24 127/72 93 09/21/16 10:26 09/21/16 10:26 09/21/16 10:26 09/21/16 10:26 09/21/16 10:26 Gen: Middle aged male lying in bed, NAD HEENT: No Scleral Icterus, Mucous Membranes Moist Respiratory: Symmetrical Chest Expansion and Respiratory Effort, markedly diminished breath sounds Rt base Cardiovascular: NL Sounds; No Murmurs; No JVD, irreuglar HR, not tachycardic Abdominal: NL Sounds; No Tenderness; No Distention Extremities: No Clubbing, Cyanosis Skin: No Rash or Ulcers, No Nodules or Sclerosis Neurological: Alert and Oriented x 3 Laboratory Results - last 24 hr 09/19/16 09/20/16 09/20/16 05:05 06:28 14:10 WBC RBC Hgb Hct MCV MCH MCHC RDW Plt Count MPV Neut % (Auto) Lymph % (Auto) [place] % (Auto) Eos % (Auto) Baso % (Auto) Absolute Neuts (auto) Absolute Lymphs (auto) Absolute Monos (auto) Absolute Eos (auto) Absolute Basos (auto) Absolute Nucleated RBC Nucleated RBC % INR (Anticoag Therapy) 1.26 H APTT 28.5 Sodium Potassium Chloride Carbon Dioxide Anion Gap BUN Creatinine Est GFR ( Amer) Est GFR (Non-Af Amer) BUN/Creatinine Ratio Glucose Calcium C-Reactive Protein 152.91 H 370.78 H 09/21/16 09/21/16 06:22 06:22 WBC 24.3 H RBC 3.83 L Hgb 11.7 L Hct 36 L MCV 93 MCH 31 MCHC 33 RDW 13 Plt Count 413 MPV 9 Neut % (Auto) 90.5 H Lymph % (Auto) 3.0 L [place] % (Auto) 6.0 Eos % (Auto) 0.2 Baso % (Auto) 0.3 Absolute Neuts (auto) 22.0 H Absolute Lymphs (auto) 0.7 L Absolute Monos (auto) 1.5 H Absolute Eos (auto) 0 Absolute Basos (auto) 0.1 Absolute Nucleated RBC 0 Nucleated RBC % 0 INR (Anticoag Therapy) APTT Sodium 132 L Potassium 4.4 Chloride 98 L Carbon Dioxide 27 Anion Gap 7 BUN 22 Creatinine 0.97 Est GFR ( Amer) 99.0 Est GFR (Non-Af Amer) 77.0 BUN/Creatinine Ratio 22.7 H Glucose 150 H Calcium 8.7 C-Reactive Protein I/R: Pt is a 66 yo M with h/o OA, nephrolithiasis and history of lyme disease who presented to the ER wtih c/o severe R sided chest pain in the setting of recently identified RLL lung masses. Pt with no fever o other signs of infection recently therefore malignancy was considered high in differential and he was scheduled yto have lung biopsy on 09/20/16. He presented through ED for worsening chest pain and had rpt CT chest which showed interval progression of lung massin RML and pleural effusion. Pt is s/p CT guided lung biopsy yesterday. He was also started on abx. Pt with signfiicant chest discomfort since yesterday, given large effusion, thoracentesis was performed. Septic w/u negative to date. Leucocytosis is unchanged. Received dose of Vanco yesterday. Will continue Vanco, Rocephin, Azithromycin. No susoicion for anaerobic infection at this time. Will give dose of Clinda. He has h/o ETOH usage and cannot completely r/o possibility. Recommend ID consult Biopsy results pending at this time Cultures negative to date Thoracentesis performed at bedside with U/S guidance, only 60cc removed Pt noted to have multiloculated fluid on U/S Fluid was turbid and cloudy Samples sent to lab Post procedure CXR is pending D/w dr Taylor
--- NOTE | 2016-09-21 13:10 | RAD ---
HISTORY: Status post thoracentesis COMPARISONS: September 19, 2016, CT dated September 20, 2016 VIEWS:1: Single frontal portable view of the chest at 12:45 PM FINDINGS: LINES AND TUBES: None. CARDIOMEDIASTINAL SILHOUETTE: The cardiomediastinal silhouette is normal for portable technique. PLEURA: There is a small right pleural effusion. LUNG PARENCHYMA: There is rounded density of the right upper lung, new from the plain film of September 19, 2016 ABDOMEN: The upper abdomen is clear. There is no subphrenic gas. BONES AND SOFT TISSUES: No bone or soft tissue abnormalities are noted. IMPRESSION: ROUNDED DENSITY OF THE RIGHT UPPER LUNG NEW FROM THE CHEST X-RAY OF SEPTEMBER 19, 2016 SUGGESTIVE OF CONSOLIDATION, GIVEN THE SHORT INTERVAL CHANGE. THERE IS A SMALL RIGHT PLEURAL EFFUSION.
[2016-09-21 13:24] LABS: Body Fluid WBC 16963 /mcL
[2016-09-21 13:26] LABS: Body Fluid Appearance Cloudy
[2016-09-21] MEDS ORDERED: Clindamycin 600 MG IVPREMIX(* 600 MG/50 ML SDV IV ONE (13:30)
[2016-09-21 14:04] LABS: Body Fluid Total Cells Counted 100
[2016-09-21] MEDS ORDERED: Vancomycin per Pharmacy* NOTE FOLLOW UP PRN (14:27)
[2016-09-21] MEDS ORDERED: Vancomycin(*) 1,500 MG in NS 0.9% 250 ML* 250 ML IVPB ONE (14:30)
--- NOTE | 2016-09-21 17:34 | PN ---
Subjective Date of Service: 09/21/16 Interval History: HOSPITALIST PROGRESS NOTE Patient seen and examined at bedside. He c/o dyspnea and cough, but was able to sleep more comfortably last night. Getting ready to have thoracentesis with Dr. Manuel. Family History: Unchanged from Admission Social History: Unchanged from Admission Past Medical History: Unchanged from Admission Objective Active Medications: Acetaminophen (Tylenol Tab*) 650 mg PO Q4H PRN PRN Reason: FEVER/HEADACHE Cholecalciferol (Vitamin D Tab*) 1,000 units PO DAILY [facility] Last Admin: 09/21/16 09:16 Dose: Not Given Hydromorphone HCl (Dilaudid Iv*) 1 mg IV SLOW PU Q2H PRN PRN Reason: PAIN Last Admin: 09/21/16 13:56 Dose: 1 mg Ceftriaxone Sodium 1,000 mg/ (Sodium Chloride) 50 mls @ 200 mls/hr IVPB Q24H [facility] Last Admin: 09/21/16 08:23 Dose: 200 mls/hr Vancomycin HCl 1,000 mg/ (Sodium Chloride) 250 mls @ 166.667 mls/hr IVPB Q8H [facility] Pharmacy Consult (Vancomycin Per Pharmacy*) 1 note FOLLOW UP . PRN PRN Reason: PER PROTOCOL Pharmacy Profile Note (Vancomycin Trough Check) 1 note FOLLOW UP ONCE ONE Stop: 09/22/16 13:31 Tamsulosin HCl (Flomax Cap*) 0.4 mg PO QPM [facility] Last Admin: 09/21/16 17:24 Dose: 0.4 mg Vital Signs 09/21/16 09/21/16 09/21/16 10:26 13:56 14:56 Temperature 98.3 F Pulse Rate 83 Respiratory 24 16 20 Rate Blood Pressure 127/72 (mmHg) O2 Sat by Pulse 93 Oximetry Oxygen Devices in Use Now: Nasal Cannula Appearance: Pleasant gentleman lying in a recliner in NAD. Eyes: No Scleral Icterus Ears/Nose/Mouth/Throat: Mucous Membranes Moist Neck: Trachea Midline Extremities: No Edema Neurological: Alert and Oriented x 3, NL Muscle Strength and Tone Lines/Tubes/Other Access: Clean, Dry and Intact Peripheral IV Nutrition: Taking PO's Result Diagrams: 09/21/16 06:22 09/21/16 06:22 Assess/Plan/Problems-Billing Assessment: Mr Mcdonnell is a 66 yo M who has a h/o OA, nephrolithiasis and history of lyme disease who presented to the ER wtih c/o severe R sided chest pain in the setting of recently identified RLL lung masses. He was admitted for further management and evaluation of the lung mass and possible post obstructive pneumonia. - Patient Problems (1) RLL pneumonia Comment: - The patient's CT showed significant changes from the CT scan done with worsening leukocytosis. - Cultures so far show no growth. - Awaiting ID consult. - Continue Ceftriaxone and Vancomycin. - Pulm input appreciated - US showed loculated fluid - will need chest tube ( consult requested with Surgery). - Biopsy done yesterday was negative for malignancy. (2) BPH (benign prostatic hyperplasia) Comment: - Continue Flomax. (3) DVT prophylaxis Comment: - SQ heparin. (4) Full code status
[2016-09-21] MEDS ORDERED: Voriconazole(*) 200 MG VIAL IV SCH (21:00)
[2016-09-21] MEDS ORDERED: Vancomycin(*) 1,000 MG in NS 0.9% 250 ML* 250 ML IVPB SCH (22:00)
--- NOTE | 2016-09-21 22:23 | CONSULT ---
Consult Consult: Reason for consult: Chest tube placement Requesting Physician: Dr. Cheney HPI: 66 yo M recently admitted for chest pain, right side, with CT showing mass and effusion. CT guided bx was non-diagnostic. A thoracentesis done today was reportedly difficult due to thick, pleural fluid. A request has been made for right tube thoracostomy to drain the effusion. He is on respiratory precautions for possible TB. PMH: nephrolithiasis, BPH, Lyme dz, OA PSH: Lithotripsy, L THR, L thumb partial amp, R hand surgery. Meds: see [facility]: -tob; EtOH x 2/day FH: non-contributory PE: Vital Signs Temp 99.3 F 09/21/16 16:21 Pulse 74 09/21/16 16:23 Resp 20 09/21/16 18:34 BP 108/56 09/21/16 16:23 Pulse Ox 96 09/21/16 16:21 NAD sitting in recliner. Neck symmetrical, trachea ML. Lung: decr BS on R side. Clear on L. Dullness to percussion lower 1/3 R chest. Laboratory Results - last 24 hr 09/21/16 09/21/16 09/21/16 06:22 06:22 12:40 WBC 24.3 H RBC 3.83 L Hgb 11.7 L Hct 36 L MCV 93 MCH 31 MCHC 33 RDW 13 Plt Count 413 MPV 9 Neut % (Auto) 90.5 H Lymph % (Auto) 3.0 L [place] % (Auto) 6.0 Eos % (Auto) 0.2 Baso % (Auto) 0.3 Absolute Neuts (auto) 22.0 H Absolute Lymphs (auto) 0.7 L Absolute Monos (auto) 1.5 H Absolute Eos (auto) 0 Absolute Basos (auto) 0.1 Absolute Nucleated RBC 0 Nucleated RBC % 0 Sodium 132 L Potassium 4.4 Chloride 98 L Carbon Dioxide 27 Anion Gap 7 BUN 22 Creatinine 0.97 Est GFR ( Amer) 99.0 Est GFR (Non-Af Amer) 77.0 BUN/Creatinine Ratio 22.7 H Glucose 150 H Calcium 8.7 Fluid Source Pleural fluid Fluid Volume 10 Fluid Color Yellow Fluid Appearance Cloudy Fluid WBC 92586 Fluid RBC 1103 Fluid Tot Cell Count 100 Fluid Neutrophils [address] images reviewed from 09/19/16. R lung mass and effusion. IMPRESSION: Right lung mass and effusion. Unsuccessful thoracentesis today. PLAN: Right chest tube placement in AM 09/22/16 Discussed with patient the procedure, indications, risks, benefits, alternatives , and option of no treatment. Risks explained including, not limited to, bleeding, infection, pain, scarring, lung injury, tube dislodgement, need for additonal procedures, and risk of anesthesia. All questions answered. He states understanding and agrees to proceed.
[2016-09-21] MEDS: NS 0.9% IVPB SCH (22:54)
[2016-09-21] MEDS: VORICONAZOLE IVPB SCH (22:54)
--- NOTE | 2016-09-21 22:56 | CONS ---
CONSULTATION REPORT: DATE OF CONSULTATION: 09/21/16 REQUESTING PHYSICIAN: Dr. Garcia. CONSULTING SERVICE: Infectious Disease. REASON FOR CONSULTATION: Lung infection. IMPRESSION: 1. Multiple lung masses seen on chest CT, 4 x 5 and then 3 x 2 cm, in the right lung that were adjacent with some central necrosis. He has had hemoptysis , chest pain, 2 weeks of cough. He notes a small pleural effusion and the most recent x- ray showed a right upper lobe mass as well. The infectious differential diagnosis includes bacterial including staphylococcal, streptococcal, Actinomyces, Nocardia. Mycobacterial considerations would be tuberculosis and then rapid growing nontuberculous mycobacterial infections. Fungal infections include the endemic fungi like histoplasmosis, coccidioidomycosis, and other fungal-like cryptococcus, Aspergillus, and Sara. There is no immunocompromising condition that we know of that would predispose to some of those infections. 2. Elevated C-reactive protein and leukocytosis, which are progressing rapidly. 3. History of left hip arthroplasty. RECOMMENDATIONS: 1. Agree with vancomycin, goal trough 15 to 20, on ceftriaxone which will cover the usual pathogens as well as Actinomyces and Nocardia. We will add voriconazole to cover fungal organisms, which I am concerned about given the rapid progression of disease. He is to have a chest tube placed tomorrow. 2. We will add a serum QuantiFERON, cryptococcal antigen, HIV antibody, as well as a urine histoplasma antigen. 3. We will place him on airborne precautions. He has had one sputum, which was smear negative. We will repeat one tonight and then another tomorrow morning to try and rule out contagious tuberculosis. HISTORY OF PRESENT ILLNESS: This is a 66-year-old man otherwise healthy admitted with right chest pain. He had been well until about 2 weeks ago, he developed twinges of right chest pain. He thought it may have been from a martial arts injury. Though he did not have a convincing story of injury in the last few weeks, he did have one about 4 months ago. His right chest pain became progressive. It got worse. He started having cough with some dyspnea. The cough was productive of first saliva, then sputum, and then pinkish bloody sputum. He had a chest CT done as an outpatient on the that showed 2 right lung masses. He was to have an outpatient evaluation, but then chest pain became quite severe. So, he came to the hospital on the and was admitted. He had had occasional chills and sweats, had not checked his temperature. His appetite had been decreased. He had lost a couple of pounds over the last 2 weeks. Until that time, he felt he was his usual self, eating well, without night sweats or fevers and no cough. When he came to the hospital , his white count was 12,000; yesterday it was up to 24,000. His CRP was 150, yesterday 380. Blood cultures on admission were negative. Sputum culture grew normal zackery. Acid fast smear was negative. Yesterday, urine Legionella and pneumococcal antigens were negative. He had a lung biopsy via ultrasound guidance yesterday. The Gram stain showed 2+ neutrophils, no organisms, and cultures negative at 24 hours, an acid fast smear was negative, fungal smear was negative. He has had no fevers. He has had ongoing right chest pain. He feels short of breath. Has some cough which is occasionally productive, not of blood at this time. He has got no other sites of infection or pain. He has not had a lung infection before, though he does have occasional bronchitis. No history of sinus infections. PAST MEDICAL HISTORY: 1. Nephrolithiasis and a history of lithotripsy. 2. Status post left hip arthroplasty. 3. Benign prostatic hypertrophy. 4. Osteoarthritis. ALLERGIES: No known drug allergies. MEDICATIONS: 1. Tylenol. 2. Clindamycin. 3. Ceftriaxone. 4. Tamsulosin. 5. Vancomycin 1 g IV every 8 hours. SOCIAL HISTORY: Lives in [place] with his . 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 Lived in [facility] for about 18 years in the 70s and 80s. No known TB contacts. No pets at home. Lives with his . No recent travel. No bird exposure. FAMILY HISTORY: Mom with colon cancer. Father with emphysema. REVIEW OF SYSTEMS: All negative except as noted above to 12-point review of systems. PHYSICAL EXAM: Vital Signs: Temperature 36.8, heart rate 80, respiratory rate 25, blood pressure 127/72, O2 sat 93% on room air. In general, he is not in distress or diaphoretic. Neurologically, he is awake and oriented x3. Follows all commands, answers all questions. HEENT: There is no conjunctival hemorrhage. Oropharynx without lesions. Neck is supple without nuchal rigidity. Lymph Nodes: There is no cervical, supraclavicular, inguinal, axillary, or epitrochlear lymphadenopathy. Heart has regular rate and rhythm without murmurs, rubs, or gallops. Lungs have decreased breath sounds, right hemithorax. There are no wheezes or rales. Abdomen: Soft, nontender, nondistended without hepatosplenomegaly. Skin: There is no rash or splinter hemorrhages. Musculoskeletal: There is no spine tenderness to palpation or joint synovitis. LABORATORY DATA: Creatinine is 0.9. CRP is 370. White blood cell count 24, hemoglobin 11, platelets 413. His chest x-ray from today shows new rounded infiltrate in the right upper lobe and small right pleural effusion in addition to the other right middle lobe changes. Please see impressions and recommendations outlined above. Thanks for asking me to see Mr. Mcdonnell in consultation. [id number]/[facility] #: [id number] MTDD
[2016-09-22] MEDS: Heparin VIAL(*) 5000 UNITS/ML VIAL (FIVE THOUSAND) SUBCUT SCH ×4 (01:58→20:43)
[2016-09-22] MEDS: HYDROmorphone INJ* 1 MG/ML CARPUJECT SYRINGE IV SLOW PU PRN ×6 (02:08→19:33)
[2016-09-22 06:40] LABS: Hematocrit 36 % (42-52); Hemoglobin 11.6 g/dl (14.0-18.0); Mean Corpuscular HGB Conc 32 g/dl (31-36); Mean Corpuscular Hemoglobin 30 pg (27-31); Mean Corpuscular Volume 94 fL (80-94); Mean Platelet Volume 9 um3 (7.4-10.4); Red Blood Count 3.85 10^6/ul (4.0-5.4); Red Cell Distribution Width 13 % (10.5-15); White Blood Count 17.5 10^3/ul (3.5-10.8)
[2016-09-22 06:56] LABS: BUN/Creatinine Ratio 17.3 (8-20); C Reactive Protein 310.77 mg/L (< 5.00); Calcium 8.3 mg/dL (8.6-10.3); EGFR African American 97.8 (>60); EGFR Non-African American 76.1 (>60)
[2016-09-22 09:10] LABS: Erythrocyte Sed Rate 111 mm/Hr (0-40)
--- NOTE | 2016-09-22 09:10 | SURGPN ---
Brief Operative Note - Surgery Procedures: PREPROCEDURE DX: RIGHT PLEURAL EFFUSION POSTPROCEDURE DX: SAME PROCEDURE: RIGHT TUBE THORACOSTOMY SURG: MECENAS ASSIST: NONE ANES: LOCAL EBL: MIN SPEC: NONE DRAIN: 32 Fr CHEST TUBE COMPL: NONE COND: STABLE
--- NOTE | 2016-09-22 09:58 | RAD ---
INDICATION: Chest tube placement. COMPARISON: Comparison is made with prior chest x-ray studies from September 19, 2016 and September 21, 2016. TECHNIQUE: A portable view of the chest was obtained. FINDINGS: The heart appears to be within normal limits in size. There is an enlarging right paratracheal density. Possibly representing a loculated pleural effusion. Recommend a CT of the chest with contrast for further evaluation. There is a chest tube present on the right side. There is a nodular density which projects laterally within the right lung and a focal infiltrate at the right lung base. These findings are unchanged and likely represent a combination of loculated pleural effusion and infiltrate. The results of this examination were called to Dr. Patricia. IMPRESSION: STATUS POST RIGHT CHEST TUBE PLACEMENT. INTERVAL PROGRESSION OF A NODULAR DENSITY IN THE RIGHT PARATRACHEAL REGION POSSIBLY REPRESENTING A LOCULATED PLEURAL EFFUSION. THERE IS ALSO A NODULAR DENSITY PRESENT LATERALLY WITHIN THE RIGHT LUNG AND FOCAL INCREASED DENSITY AT THE RIGHT LUNG BASE LIKELY REPRESENTING A COMBINATION OF LOCULATED PLEURAL EFFUSION AND INFILTRATE. RECOMMEND A CT OF THE CHEST WITH CONTRAST FOR FURTHER EVALUATION.
[2016-09-22] MEDS: Vancomycin(*) 1,000 MG in NS 0.9% 250 ML* 250 ML IVPB SCH ×2 (10:21→17:33)
[2016-09-22] MEDS: Cholecalciferol TAB* 1000 UNITS PO SCH (10:21)
[2016-09-22] MEDS ORDERED: Ondansetron INJ* 2 MG/ML VIAL IV PRN (11:08)
--- NOTE | 2016-09-22 11:14 | PN ---
Progress Note - Progress Note SOAP: Subjective: DOS: 09/22/16 CC: lung infection HPI: 66 yo man with approx 2 weeks of progressive right chest pain, cough, and dyspnea. R lung masses and pleaural effusion, had trans throacic biopsy which he tolerated well. Chest tube placed today with serosanguinous fluid and fibrin. No fever, rash, or diarrhea. Still coughing, chest pain better though not gone. Objective: [] Vital Signs Temp 37.2 C 09/22/16 07:17 Pulse 77 09/22/16 07:17 Resp 18 09/22/16 10:06 BP 143/68 09/22/16 07:17 Pulse Ox 96 09/22/16 07:17 Intake & Output 09/21/16 09/22/16 09/22/16 18:59 06:59 18:59 Intake Total 230 1465 Balance 230 1465 Intake: IVPB 265 Voriconazole 265 Oral 230 1200 Other: Estimated Void Medium Small # Bowel Movements 1 # Voids 3 2 Gen:no distress Neuro:Awake, Ox3 HEENT:PERRL, MMM Neck:Supple Heart:RRR no murmur Lungs:Decr BS R base Chest R chest tube Abd:+BS NTND soft Skin: no rash MSK: no spine tenderness Laboratory Results - last 24 hr 09/21/16 09/22/16 09/22/16 12:40 06:10 06:10 WBC 17.5 H RBC 3.85 L Hgb 11.6 L Hct 36 L MCV 94 MCH 30 MCHC 32 RDW 13 Plt Count 403 MPV 9 Neut % (Auto) 88.1 H Lymph % (Auto) 4.[address] [place] % (Auto) 7.3 Eos % (Auto) 0.3 Baso % (Auto) 0.2 Absolute Neuts (auto) 15.4 H Absolute Lymphs (auto) 0.7 L Absolute Monos (auto) 1.3 H Absolute Eos (auto) 0 Absolute Basos (auto) 0 Absolute Nucleated RBC 0 Nucleated RBC % 0 ESR 111 H Sodium 133 Potassium 4.0 Chloride 99 L Carbon Dioxide 29 Anion Gap 5 BUN 17 Creatinine 0.98 Est GFR ( Amer) 97.8 Est GFR (Non-Af Amer) 76.1 BUN/Creatinine Ratio 17.3 Glucose 144 H Calcium 8.3 L C-Reactive Protein 310.77 H Fluid Source Pleural fluid Fluid Volume 10 Fluid Color Yellow Fluid Appearance Cloudy Fluid WBC 15576 Fluid RBC 1103 Fluid Tot Cell Count 100 Fluid Neutrophils 99 Fluid Lymphocytes 1 Fluid Cell Count Rvw By Assessment: 1. multifocal right lung abscess and complex pleural effusion s/p chest tube. Diff dx pyogenic bacterial, MTb, rapid growing NTM, Histo, blasto, Crypto, Cocci. 2. elevated WBC and CRP, improving on vanco/ceftriaxone Plan: 1. AFB smear x3, if 3rd neagtive can DC airborne precautions 2. Serologic and antigen workup ordered 3. Vanco goal tr 15-20, ceftriaxone, voriconazole Discussed with Dr Taylor
[2016-09-22] MEDS ORDERED: Ondansetron INJ* 2 MG/ML VIAL ONE (11:17)
[2016-09-22] MEDS: VORICONAZOLE IVPB SCH (12:28)
[2016-09-22] MEDS: NS 0.9% IVPB SCH (12:28)
--- NOTE | 2016-09-22 13:44 | PN ---
Progress Note - Progress Note Note: Pulm consult f/u note 09/22/16. Pt seen and examined at bedside. Pt reports slight improvement in cough and breathing Active Medications Generic Name Dose Route Start Last Admin Trade Name Freq PRN Reason Stop Dose Admin Acetaminophen 650 mg 09/19/16 06:17 Tylenol Tab* PO Q4H PRN FEVER/HEADACHE Cholecalciferol 1,000 units 09/19/16 09:00 09/22/16 10:21 Vitamin D Tab* PO Not Given DAILY ANSHU Heparin Sodium (Porcine) 5,000 units 09/21/16 22:00 09/22/16 05:46 Heparin Vial(*) SUBCUT Not Given Q8HR ANSHU Hydromorphone HCl 1 mg 09/19/16 08:32 09/22/16 11:23 Dilaudid Iv* IV SLOW PU 1 mg Q2H PRN Administration PAIN Ceftriaxone Sodium 1,000 mg/ 50 mls @ 200 mls/hr 09/20/16 07:30 09/21/16 08: 23 Sodium Chloride IVPB 200 mls/hr Q24H ANSHU Administration Voriconazole 350 mg/ Sodium 100 mls @ 70.48 mls/hr 09/22/16 21:00 Chloride IVPB Q12H ANSHU 3 MG/KG/HR Vancomycin HCl 1,000 mg/ 250 mls @ 166.667 mls/hr 09/22/16 09:00 09/22/16 10: 21 Sodium Chloride IVPB 166.667 mls/hr 0100,0900,1700 ANSHU Administration Ondansetron HCl 4 mg 09/22/16 11:08 Zofran Inj* IV Q6H PRN NAUSEA Pharmacy Consult 1 note 09/21/16 14:27 Vancomycin Per Pharmacy* FOLLOW UP . PRN PER PROTOCOL Pharmacy Profile Note 1 note 09/22/16 16:30 Vancomycin Trough Check FOLLOW UP 09/22/16 16:31 ONCE ONE Tamsulosin HCl 0.4 mg 09/21/16 18:00 09/21/16 17:24 Flomax Cap* PO 0.4 mg QPM ANSHU Administration Vital Signs Temp Pulse Resp BP Pulse Ox 99.0 F 77 18 143/68 96 09/22/16 07:17 09/22/16 07:17 09/22/16 11:23 09/22/16 07:17 09/22/16 07:17 Gen: Middle aged male lying in bed, NAD HEENT: No Scleral Icterus, Mucous Membranes Moist Respiratory: Symmetrical Chest Expansion and Respiratory Effort, markedly diminished breath sounds Rt base, chest tube in place Cardiovascular: NL Sounds; No Murmurs; No JVD, irreuglar HR, not tachycardic Abdominal: NL Sounds; No Tenderness; No Distention Extremities: No Clubbing, Cyanosis Skin: No Rash or Ulcers, No Nodules or Sclerosis Neurological: Alert and Oriented x 3 Laboratory Results - last 24 hr 09/21/16 09/22/16 09/22/16 12:40 06:10 06:10 WBC 17.5 H RBC 3.85 L Hgb 11.6 L Hct 36 L MCV 94 MCH 30 MCHC 32 RDW 13 Plt Count 403 MPV 9 Neut % (Auto) 88.1 H Lymph % (Auto) 4.1 L Jones % (Auto) 7.3 Eos % (Auto) 0.3 Baso % (Auto) 0.2 Absolute Neuts (auto) 15.4 H Absolute Lymphs (auto) 0.7 L Absolute Monos (auto) 1.3 H Absolute Eos (auto) 0 Absolute Basos (auto) 0 Absolute Nucleated RBC 0 Nucleated RBC % 0 ESR 111 H Sodium 133 Potassium 4.0 Chloride 99 L Carbon Dioxide 29 Anion Gap 5 BUN 17 Creatinine 0.98 Est GFR ( Amer) 97.8 Est GFR (Non-Af Amer) 76.1 BUN/Creatinine Ratio 17.3 Glucose 144 H Calcium 8.3 L C-Reactive Protein 310.77 H Fluid Volume 10 Fluid Color Yellow Fluid Appearance Cloudy Fluid WBC 25909 Fluid RBC 1103 Fluid Tot Cell Count 100 Fluid Neutrophils 99 Fluid Lymphocytes 1 Fluid Cell Count Rvw By I/R: Pt is a 66 yo M with h/o OA, nephrolithiasis and history of lyme disease who presented to the ER with c/o severe R sided chest pain in the setting of recently identified RLL lung masses. Pt with no fever o other signs of infection recently therefore malignancy was considered high in differential and he was scheduled yto have lung biopsy on 09/20/16. He presented through ED for worsening chest pain and had rpt CT chest which showed interval progression of lung mass in RML and pleural effusion. Pt is s/p CT guided lung biopsy negative for malignancy, inflammation noted, cx negative to date. He was also started on broad spectrum abx. Pt with significant chest discomfort since yesterday, given large effusion, thoracentesis was performed, only 60cc of dark tubid fluid removed, s/p chest tube placement. Septic w/u negative to date. Leucocytosis is improving. c/w Rocephin, Vanco. Antifungal added today as per ID receommendations. Pt noted to have multiloculated fluid on U/S CXR showed mass like densities likely corresponding to loculated effusions Fluid was turbid and cloudy Chest tube placed by sx this am, drained 600cc so far- turbid with fibrinous tissue Will rpt CT chest tomorrow If continues to have loculated fluid, will administer tPA Pt also in resp isolation to r/o active TB AFBx3 pending D/w dr Taylor
--- NOTE | 2016-09-22 14:31 | PN ---
Subjective Date of Service: 09/22/16 Interval History: HOSPITALIST PROGRESS NOTE Patient seen and examined at bedside. He feels better today. Breathing is easier, cough is still present with whitish sputum. Chest pain is well controlled. Family History: Unchanged from Admission Social History: Unchanged from Admission Past Medical History: Unchanged from Admission Objective Active Medications: Acetaminophen (Tylenol Tab*) 650 mg PO Q4H PRN PRN Reason: FEVER/HEADACHE Cholecalciferol (Vitamin D Tab*) 1,000 units PO DAILY [facility] Last Admin: 09/22/16 10:21 Dose: Not Given Heparin Sodium (Porcine) (Heparin Vial(*)) 5,000 units SUBCUT Q8HR [facility] Last Admin: 09/22/16 13:56 Dose: Not Given Hydromorphone HCl (Dilaudid Iv*) 1 mg IV SLOW PU Q2H PRN PRN Reason: PAIN Last Admin: 09/22/16 13:55 Dose: 1 mg Ceftriaxone Sodium 1,000 mg/ (Sodium Chloride) 50 mls @ 200 mls/hr IVPB Q24H [facility] Last Admin: 09/21/16 08:23 Dose: 200 mls/hr Voriconazole 350 mg/ Sodium (Chloride) 100 mls @ 70.48 mls/hr IVPB Q12H ANSHU PRN Reason: 3 MG/KG/HR Vancomycin HCl 1,000 mg/ (Sodium Chloride) 250 mls @ 166.667 mls/hr IVPB 0100, 0900,1700 [facility] Last Admin: 09/22/16 10:21 Dose: 166.667 mls/hr Ondansetron HCl (Zofran Inj*) 4 mg IV Q6H PRN PRN Reason: NAUSEA Pharmacy Consult (Vancomycin Per Pharmacy*) 1 note FOLLOW UP . PRN PRN Reason: PER PROTOCOL Pharmacy Profile Note (Vancomycin Trough Check) 1 note FOLLOW UP ONCE ONE Stop: 09/22/16 16:31 Tamsulosin HCl (Flomax Cap*) 0.4 mg PO QPM [facility] Last Admin: 09/21/16 17:24 Dose: 0.4 mg Vital Signs 09/22/16 09/22/16 09/22/16 02:08 03:08 07:17 Temperature 99.0 F Pulse Rate 77 Respiratory 18 18 16 Rate Blood Pressure 143/68 (mmHg) O2 Sat by Pulse 96 Oximetry Oxygen Devices in Use Now: Nasal Cannula Appearance: Pleasant gentleman sitting up in a recliner in NAD. Eyes: No Scleral Icterus Ears/Nose/Mouth/Throat: Mucous Membranes Moist Neck: Trachea Midline Respiratory: Symmetrical Chest Expansion and Respiratory Effort, - - BS+ bilaterally decreased in right base Cardiovascular: RRR - Normal S1 and S2 Abdominal: NL Sounds; No Tenderness; No Distention Extremities: No Edema Neurological: Alert and Oriented x 3, NL Muscle Strength and Tone Lines/Tubes/Other Access: Clean, Dry and Intact Peripheral IV Nutrition: Taking PO's Result Diagrams: 09/22/16 06:10 09/22/16 06:10 Assess/Plan/Problems-Billing Assessment: Mr Mcdonnell is a 66 yo M who has a h/o OA, nephrolithiasis and history of lyme disease who presented to the ER wtih c/o severe R sided chest pain in the setting of recently identified RLL lung masses. He was admitted for further management and evaluation of the lung mass and possible post obstructive pneumonia. - Patient Problems (1) RLL pneumonia Comment: - The patient's CT showed significant changes from the CT scan done with worsening leukocytosis. - Cultures so far show no growth. - ID consult appreciated - continue Ceftriaxone, Vancomycin, and Voriconazole. - Differential includes bacterial infection, TB, Histoplasmosis, Cryptococcosis - work up sent. - Pulm input appreciated - US showed loculated fluid - fluid suggests exudate. - Biopsy done yesterday was negative for malignancy. - S/p chest tube placement 09/22/[address] Chaudhary. - Plan for repeat CT chest with contrast today. - May need tPA for loculated effusion. (2) BPH (benign prostatic hyperplasia) Comment: - Continue Flomax. (3) DVT prophylaxis Comment: - SQ heparin. (4) Full code status Status and Disposition: Inpatient. updated at bedside.
[2016-09-22] MEDS ORDERED: Iohexol 300* (CONTRAST) 10 ML SDV IV ONE (14:43)
[2016-09-22 15:35] LABS: Total Protein, BF 4.6 g/dL
[2016-09-22] MEDS: cefTRIAXone VIAL(*) 1,000 MG in NS 0.9% 50 ML* 50 ML IVPB SCH (15:49)
[2016-09-22 15:50] LABS: Glucose, BF < 2 mg/dL
--- NOTE | 2016-09-22 16:02 | RAD ---
INDICATION: Right lower lobe infiltrate and effusion. Chest tube. COMPARISON: Chest x-ray 2016; noncontrast CT chest September 20, 2016 TECHNIQUE: Axial source images were obtained from the thoracic inlet to the hemidiaphragms. Coronal and sagittal reconstructed images were acquired. The visualized neck to include the thyroid appear normal. Chest wall: There are no acute abnormalities of the bony thorax or chest wall. There is no supraclavicular, infraclavicular, or axillary lymphadenopathy. Lungs : There is a small to moderate, partially loculated right basilar fluid collection. There is a chest tube within this collection which is slightly smaller. Along the right lateral chest wall there is related pleural fluid and in the anterior chest is loculated pleural fluid and there is parenchymal change in the right middle lobe with several low attenuation areas which could represent lung abscesses. There is probably not been a significant interval change. The lung markings and pleural fluid is better delineated with this contrast-enhanced examination. There is significant pleural fluid along the medial right hemithorax which is producing mass effect upon the mediastinum. This appears slightly increased. The left lung is clear Cardiomediastinal structures: The heart is normal in size. There is no pericardial effusion. There is no evidence of aortic aneurysm or dissection. The pulmonary vessels appear normal. There is no mediastinal or hilar adenopathy. The esophagus appears normal. Pleura : There are no pleural-based masses or effusions. Other: There are no acute or significant CT findings of the visualized upper abdomen. IMPRESSION: There is significant likely pleural fluid in the right chest with airspace disease in right middle lobe and right lower lobe. There may be an empyema in the right middle lobe. The chest tube has led to partial drainage of the right lower lobe loculated collection.
[2016-09-22] MEDS ORDERED: Vancomycin Trough Check NOTE FOLLOW UP ONE (16:30)
[2016-09-22] MEDS: Tamsulosin CAP* 0.4 MG PO SCH (17:33)
[2016-09-22] MEDS ORDERED: Voriconazole(*) 200 MG/20 ML VIAL (after mixing w/ 19 ml SW) IVPB SCH (18:00)
--- NOTE | 2016-09-22 19:28 | PN ---
Hospitalist Progress Note HOSPITALIST ADDENDUM Called by RN earlier because she had noted edema around the sternum area. Seen at bedside, but I don't see any edema around that area at this time, no subcutaneous emphysema, or hematoma. Feeling better at this time, denies dyspnea or pain. Will continue to monitor.
[2016-09-22] MEDS ORDERED: NS 0.9% IVPB SCH (21:00)
[2016-09-22] MEDS ORDERED: VORICONAZOLE IVPB SCH (21:00)
[2016-09-23] MEDS ORDERED: Vancomycin(*) 1,250 MG IV IVPB ONE ×2
[2016-09-23] MEDS: HYDROmorphone INJ* 1 MG/ML CARPUJECT SYRINGE IV SLOW PU PRN ×4 (00:27→18:03)
--- NOTE | 2016-09-23 01:38 | PRO ---
DATE OF PROCEDURE: 09/22/16 - ROOM #422 DATE OF : 46 SURGEON: Micheal Chaudhary MD PEANUT GRADER: None. ANESTHESIA: 1% lidocaine with epinephrine used locally. PRE-PROCEDURE DIAGNOSIS: Right pleural effusion. POST-PROCEDURE DIAGNOSIS: Right pleural effusion. PROCEDURE PERFORMED: Right tube thoracostomy. ESTIMATED BLOOD LOSS: Minimal. IV FLUIDS: Crystalloids. SPECIMEN: None. DRAINS: 32-Jamaican chest tube. COMPLICATIONS: None. DESCRIPTION OF PROCEDURE: The patient was brought to the procedure room and remained on the stretcher in the semi-livingston position. His right chest was marked, prepped and draped in the usual sterile fashion. Time-out was performed. Local anesthetic was infiltrated into the 7th intercostal space in the mid axillary line. An incision was created obliquely and the tissues were bluntly spread and the pleural cavity was entered with a curved clamp. A finger was placed into the pleural cavity. Lung was palpated. There was some blood- tinged pleural fluid forthcoming. A 32-Jamaican chest tube with additional side holes cut into was inserted to 20 cm and then sutured to the skin with 0 silk and tied to umbilical tape, secured to the tube. Xeroform dressing and gauze were applied. The tube was connected to Pleur-evac suction and additional pleural fluid was forthcoming, which was paty clear fluid. The patient tolerated the procedure well. The post procedure x-ray revealed the tube to be in good position and the patient was transferred back to his room. CC: Subha Manuel MD; Leroy Harris MD* [id number]/[facility] #: [id number] MTDD
[2016-09-23] MEDS: Heparin VIAL(*) 5000 UNITS/ML VIAL (FIVE THOUSAND) SUBCUT SCH ×3 (05:41→20:21)
[2016-09-23 06:26] LABS: Hematocrit 34 % (42-52); Hemoglobin 11.1 g/dl (14.0-18.0); Mean Corpuscular HGB Conc 33 g/dl (31-36); Mean Corpuscular Hemoglobin 31 pg (27-31); Mean Corpuscular Volume 93 fL (80-94); Mean Platelet Volume 8 um3 (7.4-10.4); Red Blood Count 3.63 10^6/ul (4.0-5.4); Red Cell Distribution Width 14 % (10.5-15); White Blood Count 13.5 10^3/ul (3.5-10.8)
[2016-09-23 06:37] LABS: BUN/Creatinine Ratio 16.3 (8-20); C Reactive Protein 270.64 mg/L (< 5.00); Calcium 8.3 mg/dL (8.6-10.3); EGFR African American 97.8 (>60); EGFR Non-African American 76.1 (>60)
--- NOTE | 2016-09-23 07:25 | PN ---
Progress Note - Progress Note Note: Pulm consult f/u note 09/23/16. Pt seen and examined at bedside. Pt reports slight improvement in cough and breathing Active Medications Generic Name Dose Route Start Last Admin Trade Name Freq PRN Reason Stop Dose Admin Acetaminophen 650 mg 09/19/16 06:17 Tylenol Tab* PO Q4H PRN FEVER/HEADACHE Cholecalciferol 1,000 units 09/19/16 09:00 09/22/16 10:21 Vitamin D Tab* PO Not Given DAILY ANSHU Heparin Sodium (Porcine) 5,000 units 09/21/16 22:00 09/23/16 05:41 Heparin Vial(*) SUBCUT Not Given Q8HR ANSHU Hydromorphone HCl 1 mg 09/19/16 08:32 09/23/16 00:27 Dilaudid Iv* IV SLOW PU 1 mg Q2H PRN Administration PAIN Ceftriaxone Sodium 1,000 mg/ 50 mls @ 200 mls/hr 09/20/16 07:30 09/22/16 15: 49 Sodium Chloride IVPB 200 mls/hr Q24H ANSHU Administration Voriconazole 350 mg/ Sodium 100 mls @ 70.48 mls/hr 09/22/16 21:00 09/22/16 20 :41 Chloride IVPB 70.48 mls/hr Q12H ANSHU Administration 3 MG/KG/HR Ondansetron HCl 4 mg 09/22/16 11:08 Zofran Inj* IV Q6H PRN NAUSEA Pharmacy Consult 1 note 09/21/16 14:27 Vancomycin Per Pharmacy* FOLLOW UP . PRN PER PROTOCOL Pharmacy Profile Note 1 note 09/24/16 07:30 Vancomycin Trough Check FOLLOW UP 09/24/16 07:31 0730 ONE Tamsulosin HCl 0.4 mg 09/21/16 18:00 09/22/16 17:33 Flomax Cap* PO 0.4 mg QPM ANSHU Administration Vital Signs Temp Pulse Resp BP Pulse Ox 98.4 F 71 18 142/121 97 09/22/16 23:30 09/22/16 23:30 09/23/16 01:27 09/22/16 23:30 09/23/16 00:00 Physical exam: Gen: Middle aged male lying in bed, NAD HEENT: No Scleral Icterus, Mucous Membranes Moist Respiratory: Symmetrical Chest Expansion and Respiratory Effort, markedly diminished breath sounds Rt base, chest tube in place Cardiovascular: NL Sounds; No Murmurs; No JVD, irreuglar HR, not tachycardic Abdominal: NL Sounds; No Tenderness; No Distention Extremities: No Clubbing, Cyanosis Skin: No Rash or Ulcers, No Nodules or Sclerosis Neurological: Alert and Oriented x 3 Laboratory Results - last 24 hr 09/21/16 09/21/16 09/21/16 12:40 12:40 12:40 WBC RBC Hgb Hct MCV MCH MCHC RDW Plt Count MPV Neut % (Auto) Lymph % (Auto) Douglas % (Auto) Eos % (Auto) Baso % (Auto) Absolute Neuts (auto) Absolute Lymphs (auto) Absolute Monos (auto) Absolute Eos (auto) Absolute Basos (auto) Absolute Nucleated RBC Nucleated RBC % ESR Sodium Potassium Chloride Carbon Dioxide Anion Gap BUN Creatinine Est GFR ( Amer) Est GFR (Non-Af Amer) BUN/Creatinine Ratio Glucose Calcium C-Reactive Protein Fluid Source Pleural fluid Pleural fluid Fluid Cell Count Rvw By Fluid Glucose Fluid Total Protein 4.6 Fluid LDH 3740 Vancomycin Trough 09/21/16 09/22/16 09/22/16 12:40 06:10 16:22 WBC RBC Hgb Hct MCV MCH MCHC RDW Plt Count MPV Neut % (Auto) Lymph % (Auto) Douglas % (Auto) Eos % (Auto) Baso % (Auto) Absolute Neuts (auto) Absolute Lymphs (auto) Absolute Monos (auto) Absolute Eos (auto) Absolute Basos (auto) Absolute Nucleated RBC Nucleated RBC % ESR 111 H Sodium Potassium Chloride Carbon Dioxide Anion Gap BUN Creatinine Est GFR ( Amer) Est GFR (Non-Af Amer) BUN/Creatinine Ratio Glucose Calcium C-Reactive Protein Fluid Source Pleural fluid Fluid Cell Count Rvw By Fluid Glucose < 2 Fluid Total Protein Fluid LDH Vancomycin Trough 12.0 09/23/16 09/23/16 06:16 06:17 WBC 13.5 H RBC 3.63 L Hgb 11.1 L Hct 34 L MCV 93 MCH 31 MCHC 33 RDW 14 Plt Count 378 MPV 8 Neut % (Auto) 85.0 H Lymph % (Auto) 5.4 L Douglas % (Auto) 8.3 Eos % (Auto) 0.7 Baso % (Auto) 0.6 Absolute Neuts (auto) 11.5 H Absolute Lymphs (auto) 0.7 L Absolute Monos (auto) 1.1 H Absolute Eos (auto) 0.1 Absolute Basos (auto) 0.1 Absolute Nucleated RBC 0 Nucleated RBC % 0 ESR Sodium 134 Potassium 4.0 Chloride 101 Carbon Dioxide 27 Anion Gap 6 BUN 16 Creatinine 0.98 Est GFR ( Amer) 97.8 Est GFR (Non-Af Amer) 76.1 BUN/Creatinine Ratio 16.3 Glucose 132 H Calcium 8.3 L C-Reactive Protein 270.64 H Fluid Source Fluid Cell Count Rvw By Fluid Glucose Fluid Total Protein Fluid LDH Vancomycin Trough I/R: Pt is a 66 yo M with h/o OA, nephrolithiasis and history of lyme disease who presented to the ER with c/o severe R sided chest pain in the setting of recently identified RLL lung masses. Pt with no fever o other signs of infection recently therefore malignancy was considered high in differential and he was scheduled to have lung biopsy on 09/20/16. He presented through ED for worsening chest pain and had rpt CT chest which showed interval progression of lung mass in RML and pleural effusion. Pt is s/p CT guided lung biopsy negative for malignancy, inflammation noted, cx negative to date. He was also started on broad spectrum abx. Pt with significant chest discomfort, given large effusion, thoracentesis was performed, only 60cc of dark tubid fluid removed, s/p chest tube placement, drained 800 cc so far. Septic w/u negative to date. Leucocytosis is improving. c/w Rocephin, Vanco. Antifungal added today as per ID recommendations. Pt had CT chest repeated. I have personally reviewed images. Pt with loculated effusions with isolated pocket near RML and another pocket anteriorly close to chest wall. Chest tube in place and is able to drain fluid more posteriorly.Basal atelectasis on rt base also noted. Fluid in ant chest wall appears to be having air concerning for empyema. CXR showed mass like densities likely corresponding to loculated effusions Fibrinolytics might not work given isolated pockets. Pt might need surgery. Thoracic sx evaluation AFBx3 pending D/w dr Taylor
[2016-09-23] MEDS ORDERED: Vancomycin(*) 1,250 MG in NS 0.9% 250 ML* 250 ML IVPB SCH (08:00)
--- NOTE | 2016-09-23 08:09 | RAD ---
Indication: Follow-up pleural effusion. 2 views of the chest including dual energy PA views demonstrates right chest tube in place. Loculated pleural effusion appears to be improved. Left lung field is clear. There is likely a mass in the right midlung field. Comparison is made with previous exam dated September 22, 2016. IMPRESSION: Loculated pleural effusion appears to BE improved since previous exam.
[2016-09-23] MEDS: cefTRIAXone VIAL(*) 1,000 MG in NS 0.9% 50 ML* 50 ML IVPB SCH (08:11)
[2016-09-23] MEDS: Cholecalciferol TAB* 1000 UNITS PO SCH (08:52)
--- NOTE | 2016-09-23 10:22 | PN ---
Progress Note - Progress Note SOAP: Subjective: DOS: 09/23/16 CC: lung infection HPI: 66 yo man with approx 2 weeks of progressive right chest pain, cough, and dyspnea. R lung masses and pleaural effusion, had trans throacic biopsy which he tolerated well. Chest tube placed 09/22 with serosanguinous fluid and fibrin. No fever, rash, or diarrhea. Chest pain nearly gone, some cough, productive, occasional blood streaks. Objective: [] Vital Signs Temp 36.7 C 09/23/16 07:10 Pulse 67 09/23/16 07:10 Resp 16 09/23/16 10:00 BP 119/70 09/23/16 07:10 Pulse Ox 96 09/23/16 07:10 Intake & Output 09/22/16 09/23/16 09/23/16 18:59 06:59 18:59 Intake Total 800 350 Output Total 0 Balance 800 350 Weight 181 lb Intake: IV Fluids 60 ABX - VANCOMYCIN 30 Voriconazole 30 IVPB 500 350 ABX - VANCOMYCIN 250 250 Voriconazole 250 100 Oral 240 0 Output: Urine 0 Other: # Voids 1 2 Gen:no distress Neuro:Awake, Ox3 HEENT:PERRL, MMM Neck:Supple Heart:RRR no murmur Lungs:Decr BS R base Chest R chest tube, no chest tenderness to palpation Abd:+BS NTND soft Skin: no rash MSK: no spine tenderness Laboratory Results - last 24 hr 09/21/16 09/21/16 09/21/16 12:40 12:40 12:40 WBC RBC Hgb Hct MCV MCH MCHC RDW Plt Count MPV Neut % (Auto) Lymph % (Auto) [place] % (Auto) Eos % (Auto) Baso % (Auto) Absolute Neuts (auto) Absolute Lymphs (auto) Absolute Monos (auto) Absolute Eos (auto) Absolute Basos (auto) Absolute Nucleated RBC Nucleated RBC % Sodium Potassium Chloride Carbon Dioxide Anion Gap BUN Creatinine Est GFR ( Amer) Est GFR (Non-Af Amer) BUN/Creatinine Ratio Glucose Calcium C-Reactive Protein Fluid Source Pleural fluid Pleural fluid Pleural fluid Fluid Glucose < 2 Fluid Total Protein 4.6 Fluid LDH 3740 Vancomycin Trough 09/22/16 09/23/16 09/23/16 16:22 06:16 06:17 WBC 13.5 H RBC 3.63 L Hgb 11.1 L Hct 34 L MCV 93 MCH 31 MCHC 33 RDW 14 Plt Count 378 MPV 8 Neut % (Auto) 85.0 H Lymph % (Auto) 5.4 L [place] % (Auto) 8.3 Eos % (Auto) 0.7 Baso % (Auto) 0.6 Absolute Neuts (auto) 11.5 H Absolute Lymphs (auto) 0.7 L Absolute Monos (auto) 1.1 H Absolute Eos (auto) 0.1 Absolute Basos (auto) 0.1 Absolute Nucleated RBC 0 Nucleated RBC % 0 Sodium 134 Potassium 4.0 Chloride 101 Carbon Dioxide 27 Anion Gap 6 BUN 16 Creatinine 0.98 Est GFR ( Amer) 97.8 Est GFR (Non-Af Amer) 76.1 BUN/Creatinine Ratio 16.3 Glucose 132 H Calcium 8.3 L C-Reactive Protein 270.64 H Fluid Source Fluid Glucose Fluid Total Protein Fluid LDH Vancomycin Trough 12.0 Microbiology 09/21/16 12:40 Gram Stain - Final Body Fluid - Pleura, Rt Lung Body Fluid Culture - Preliminary No Growth Day 1 09/20/16 16:20 Gram Stain - Final Misc Fluid (See Comment) - Aspirate Body Fluid Culture - Preliminary No Growth Day 3 09/19/16 06:05 Aerobic Blood Culture - Preliminary Blood Venous No Growth Day 4 Anaerobic Blood Culture - Preliminary No Growth Day 4 Blood Culture - Final 09/19/16 06:05 Aerobic Blood Culture - Preliminary Blood Venous No Growth Day 4 Anaerobic Blood Culture - Preliminary No Growth Day 4 Blood Culture - Final 09/22/16 14:37 Acid Fast Bacilli Smear - Final Respiratory 09/20/16 09:30 Gram Stain - Final Sputum Expectorated Sputum Culture - Final Normal Jessica 09/21/16 18:20 Acid Fast Bacilli Smear - Final Respiratory - Sputum Expectorated Assessment: 1. multifocal right lung abscess and multiple empyema s/p chest tube. Diff dx most likely pyogenic bacterial, less likely MTb, doubt fungal. 2. elevated WBC and CRP, improving 3. cough Plan: 1. DC airborne precautions 2. Serologic and antigen workup ordered 3. Vanco goal tr 15-20, ceftriaxone, DC voriconazole 4. PICC ordered Discussed with Dr Taylor 35 minutes floor time >50% face to face with patient and discussing cause and treatment of his infection and terminal worker antibiotic plans.
--- NOTE | 2016-09-23 14:50 | PN ---
Subjective Date of Service: 09/23/16 Interval History: HOSPITALIST PROGRESS NOTE Patient seen and examined at bedside. He feels a little better this AM with less dyspnea and pain. Cough is still present, but with less sputum production. Family History: Unchanged from Admission Social History: Unchanged from Admission Past Medical History: Unchanged from Admission Objective Active Medications: Acetaminophen (Tylenol Tab*) 650 mg PO Q4H PRN PRN Reason: FEVER/HEADACHE Cholecalciferol (Vitamin D Tab*) 1,000 units PO DAILY [facility] Last Admin: 09/23/16 08:52 Dose: Not Given Heparin Sodium (Porcine) (Heparin Vial(*)) 5,000 units SUBCUT Q8HR [facility] Last Admin: 09/23/16 12:39 Dose: Not Given Hydromorphone HCl (Dilaudid Iv*) 1 mg IV SLOW PU Q2H PRN PRN Reason: PAIN Last Admin: 09/23/16 12:40 Dose: 1 mg Ceftriaxone Sodium 1,000 mg/ (Sodium Chloride) 50 mls @ 200 mls/hr IVPB Q24H [facility] Last Admin: 09/23/16 08:11 Dose: 200 mls/hr Vancomycin HCl 1,250 mg/ (Sodium Chloride) 250 mls @ 166.667 mls/hr IVPB Q8H [facility] Last Admin: 09/23/16 08:54 Dose: 166.667 mls/hr Alteplase, Recombinant 10 mg/ (Sodium Chloride) 50 mls @ 0 mls/hr INTRAPLEUR ONCE ONE PRN Reason: As Directed Stop: 09/23/16 16:01 Melatonin (Melatonin (Nf)) 3 mg PO BEDTIME [facility] Ondansetron HCl (Zofran Inj*) 4 mg IV Q6H PRN PRN Reason: NAUSEA Pharmacy Consult (Vancomycin Per Pharmacy*) 1 note FOLLOW UP . PRN PRN Reason: PER PROTOCOL Pharmacy Profile Note (Vancomycin Trough Check) 1 note FOLLOW UP 0730 ONE Stop: 09/24/16 07:31 Tamsulosin HCl (Flomax Cap*) 0.4 mg PO QPM [facility] Last Admin: 09/22/16 17:33 Dose: 0.4 mg Vital Signs 09/23/16 09/23/16 09/23/16 07:10 10:00 11:00 Temperature 98.1 F Pulse Rate 67 Respiratory 16 16 16 Rate Blood Pressure 119/70 (mmHg) O2 Sat by Pulse 96 Oximetry Oxygen Devices in Use Now: Nasal Cannula Appearance: Pleasant gentleman sitting up in a recliner in NAD. Eyes: No Scleral Icterus Ears/Nose/Mouth/Throat: Mucous Membranes Moist Neck: Trachea Midline Respiratory: Symmetrical Chest Expansion and Respiratory Effort, - - BS+ bilaterally decreased on right base Cardiovascular: NL Sounds; No Murmurs; No JVD, RRR Abdominal: NL Sounds; No Tenderness; No Distention Extremities: No Edema Neurological: Alert and Oriented x 3, NL Muscle Strength and Tone Lines/Tubes/Other Access: Clean, Dry and Intact Peripheral IV Nutrition: Taking PO's Result Diagrams: 09/23/16 06:17 09/23/16 06:16 Assess/Plan/Problems-Billing Assessment: Mr Mcdonnell is a 66 yo M who has a h/o OA, nephrolithiasis and history of lyme disease who presented to the ER wtih c/o severe R sided chest pain in the setting of recently identified RLL lung masses. He was admitted for further management and evaluation of the lung mass and possible post obstructive pneumonia. - Patient Problems (1) RLL pneumonia Comment: - The patient's CT showed significant changes from the CT scan done with worsening leukocytosis. - Cultures so far show no growth. - ID consult appreciated - continue Ceftriaxone, Vancomycin, and d/c Voriconazole. - Differential includes bacterial infection, Histoplasmosis, Cryptococcosis - work up sent. - AFB x3 negative. - Pulm input appreciated - fluid is an empyema. Recommended fibrinolytics and surgery evaluation for possible VATS. - Biopsy was negative for malignancy. - S/p chest tube placement 09/22/[address] Chaudhary. (2) BPH (benign prostatic hyperplasia) Comment: - Continue Flomax. (3) DVT prophylaxis Comment: - SQ heparin. (4) Full code status Status and Disposition: Inpatient. updated at bedside.
[2016-09-23 15:32] LABS: Cryptococcus Antigen w/Titer Negative (Negative)
[2016-09-23] MEDS ORDERED: Alteplase (CATHFLO)* 10 MG in NS 0.9% 50 ML* 40 ML INTRAPLEUR ONE (16:00)
[2016-09-23] MEDS ORDERED: DORNASE ALFA 1 mg/ml(NF) 5 MG in NS 0.9% 50 ML INTRAPLEUR ONE (16:00)
[2016-09-23] MEDS: Tamsulosin CAP* 0.4 MG PO SCH (17:45)
[2016-09-23] MEDS: Vancomycin(*) 1,250 MG in NS 0.9% 250 ML* 250 ML IVPB SCH (17:55)
[2016-09-23] MEDS: Acetaminophen TAB* 325 MG PO PRN (20:20)
[2016-09-23] MEDS: CMCS: Melatonin (NF) 3 MG TAB PO SCH (20:20)
[2016-09-24] MEDS: HYDROmorphone INJ* 1 MG/ML CARPUJECT SYRINGE IV SLOW PU PRN ×5 (00:27→22:01)
[2016-09-24] MEDS: Vancomycin(*) 1,250 MG in NS 0.9% 250 ML* 250 ML IVPB SCH ×2 (00:32→09:12)
[2016-09-24 04:53] LABS: Hematocrit 31 % (42-52); Hemoglobin 10.4 g/dl (14.0-18.0); Mean Corpuscular HGB Conc 33 g/dl (31-36); Mean Corpuscular Hemoglobin 31 pg (27-31); Mean Corpuscular Volume 93 fL (80-94); Mean Platelet Volume 8 um3 (7.4-10.4); Red Blood Count 3.39 10^6/ul (4.0-5.4); Red Cell Distribution Width 13 % (10.5-15); White Blood Count 12.7 10^3/ul (3.5-10.8)
[2016-09-24 04:57] LABS: Comments Flag Yes
[2016-09-24 04:58] LABS: Add Diff/Slide Review? Slide Review Added
[2016-09-24 05:04] LABS: BUN/Creatinine Ratio 16.7 (8-20); C Reactive Protein 226.42 mg/L (< 5.00); EGFR African American 107.9 (>60); EGFR Non-African American 83.9 (>60); Potassium 3.7 mmol/L (3.5-5.0)
[2016-09-24 05:45] LABS: Erythrocyte Sed Rate 115 mm/Hr (0-40)
[2016-09-24] MEDS: Heparin VIAL(*) 5000 UNITS/ML VIAL (FIVE THOUSAND) SUBCUT SCH ×3 (06:01→22:05)
[2016-09-24] MEDS ORDERED: Vancomycin Trough Check NOTE FOLLOW UP ONE (08:00)
[2016-09-24] MEDS: cefTRIAXone VIAL(*) 1,000 MG in NS 0.9% 50 ML* 50 ML IVPB SCH (08:10)
[2016-09-24] MEDS: Cholecalciferol TAB* 1000 UNITS PO SCH (09:11)
--- NOTE | 2016-09-24 10:15 | PRO ---
PROCEDURE NOTE: DATE OF PROCEDURE: 09/23/16 - ROOM #422 HISTORY: The patient is a 66-year-old male who has had elevated white blood count and presented with some fevers and is found to have right pleural effusion with probable loculations and probable empyema. He has a chest tube which has incompletely drained the pleural space and the question now is one of whether he needs a video thoracoscopy. Clinically, the patient has improved quite a bit in terms of his breathing, his respiration, his comfort level. He appears comfortable and I have reviewed his chest x-ray and his CT scan. I have discussed the situation with him and with his extensively (45 minutes), and at this stage, I recommend fibrinolytic therapy as the first approach with the under-standing that if that does not work , then we can plan a video thoracoscopy, but I would prefer to try the nonoperative approach first. They were understanding about and agreeable to this approach. DESCRIPTION OF PROCEDURE: Therefore, 50 mL of the Dornase solution and 50 mL of the Alteplase solution are infused into the chest tube. The chest tube is then clamped. He tolerated this well and the tube will be unclamped after about 2 hours. [id number]/CPS #: [id number] MTDD
--- NOTE | 2016-09-24 11:05 | PN ---
Progress Note - Progress Note Note: Pulm consult f/u note 09/24/16. Pt seen and examined at bedside. Pt reports improvement in cough and breathing since tPA was started Active Medications Generic Name Dose Route Start Last Admin Trade Name Frealexandra PRN Reason Stop Dose Admin Acetaminophen 650 mg 09/19/16 06:17 09/23/16 20:20 Tylenol Tab* PO 650 mg Q4H PRN Administration FEVER/HEADACHE Cholecalciferol 1,000 units 09/19/16 09:00 09/24/16 09:11 Vitamin D Tab* PO 1,000 units DAILY AN[facility] Administration Heparin Sodium (Porcine) 5,000 units 09/21/16 22:00 09/24/16 06:01 Heparin Vial(*) SUBCUT 5,000 units Q8HR ANSHU Administration Heparin Sodium (Porcine) 1 ml 09/23/16 18:00 09/24/16 04:22 Heparin Flush Picc/Ml/Cvc(*) FLUSH 1 ml 0600,1800 ANSHU Administration Protocol Hydromorphone HCl 1 mg 09/19/16 08:32 09/24/16 10:43 Dilaudid Iv* IV SLOW PU 1 mg Q2H PRN Administration PAIN Ceftriaxone Sodium 1,000 mg/ 50 mls @ 200 mls/hr 09/20/16 07:30 09/24/16 08: 10 Sodium Chloride IVPB 200 mls/hr Q24H AN[facility]U Administration Vancomycin HCl 1,250 mg/ 250 mls @ 166.667 mls/hr 09/23/16 16:30 09/24/16 09: 12 Sodium Chloride IVPB 166.667 mls/hr 0030,0830,1630 AN[facility]U Administration Alteplase, Recombinant 10 mg/ 50 mls @ 0 mls/hr 09/24/16 09:00 Sodium Chloride INTRAPLEUR 09/26/16 09:01 BID ANSHU As Directed Dornase Donte 5 mg/ Sodium 50 mls @ 0 mls/hr 09/24/16 09:00 Chloride INTRAPLEUR 09/26/16 09:01 BID ANSHU As Directed Melatonin 3 mg 09/23/16 21:00 09/23/16 20:20 Melatonin (Nf) PO 3 mg BEDTIME [facility] Administration Ondansetron HCl 4 mg 09/22/16 11:08 Zofran Inj* IV Q6H PRN NAUSEA Pharmacy Consult 1 note 09/21/16 14:27 Vancomycin Per Pharmacy* FOLLOW UP . PRN PER PROTOCOL Tamsulosin HCl 0.4 mg 09/21/16 18:00 09/23/16 17:45 Flomax Cap* PO 0.4 mg QPM [facility] Administration Vital Signs Temp Pulse Resp BP Pulse Ox 97.8 F 65 18 132/67 97 09/24/16 07:59 09/24/16 07:59 09/24/16 10:43 09/24/16 07:59 09/24/16 07:59 Physical exam: Gen: Middle aged male lying in bed, NAD HEENT: No Scleral Icterus, Mucous Membranes Moist Respiratory: Symmetrical Chest Expansion and Respiratory Effort, markedly diminished breath sounds Rt base, chest tube in place Cardiovascular: NL Sounds; No Murmurs; No JVD, irreuglar HR, not tachycardic Abdominal: NL Sounds; No Tenderness; No Distention Extremities: No Clubbing, Cyanosis Skin: No Rash or Ulcers, No Nodules or Sclerosis Neurological: Alert and Oriented x 3 Laboratory Last Values WBC 12.7 10^3/ul (3.5-10.8) H 09/24/16 04:30 RBC 3.39 10^6/ul (4.0-5.4) L 09/24/16 04:30 Hgb 10.4 g/dl (14.0-18.0) L 09/24/16 04:30 Hct 31 % (42-52) L 09/24/16 04:30 MCV 93 fL (80-94) 09/24/16 04:30 MCH 31 pg (27-31) 09/24/16 04:30 MCHC 33 g/dl (31-36) 09/24/16 04:30 RDW 13 % (10.5-15) 09/24/16 04:30 Plt Count 385 10^3/ul (150-450) 09/24/16 04:30 MPV 8 um3 (7.4-10.4) 09/24/16 04:30 Immature Gran % (Auto) 1 % (0-9) 09/19/16 05:05 Neut % (Auto) 83.6 % (38-83) H 09/24/16 04:30 Lymph % (Auto) 6.7 % (25-47) L 09/24/16 04:30 [place] % (Auto) 8.3 % (1-9) 09/24/16 04:30 Eos % (Auto) 1.2 % (0-6) 09/24/16 04:30 Baso % (Auto) 0.2 % (0-2) 09/24/16 04:30 Absolute Neuts (auto) 10.6 10^3/ul (1.5-7.7) H 09/24/16 04:30 Absolute Lymphs (auto) 0.9 10^3/ul (1.0-4.8) L 09/24/16 04:30 Absolute Monos (auto) 1.1 10^3/ul (0-0.8) H 09/24/16 04:30 Absolute Eos (auto) 0.2 10^3/ul (0-0.6) 09/24/16 04:30 Absolute Basos (auto) 0 10^3/ul (0-0.2) 09/24/16 04:30 Absolute Nucleated RBC 0 10^3/ul 09/24/16 04:30 Neutrophils % 82 % (38-83) 09/19/16 05:05 Band Neutrophils % 1 % (0-8) 09/19/16 05:05 Lymphocytes % 9 % (25-47) L 09/19/16 05:05 Monocytes % 7 % (0-13) 09/19/16 05:05 Eosinophils % 1 % (0-6) 09/19/16 05:05 Nucleated RBC % 0 09/24/16 04:30 Normal RBC Morphology Normal (Normal) 09/19/16 05:05 ESR 115 mm/Hr (0-40) H 09/24/16 04:30 INR (Anticoag Therapy) 1.26 (0.89-1.11) H 09/20/16 14:10 APTT 28.5 seconds (26.0-36.3) 09/20/16 14:10 Sodium 133 mmol/L (133-145) 09/24/16 04:30 Potassium 3.7 mmol/L (3.5-5.0) 09/24/16 04:30 Chloride 100 mmol/L (101-111) L 09/24/16 04:30 Carbon Dioxide 28 mmol/L (22-32) 09/24/16 04:30 Anion Gap 5 mmol/L (2-11) 09/24/16 04:30 BUN 15 mg/dL (6-24) 09/24/16 04:30 Creatinine 0.90 mg/dL (0.67-1.17) 09/24/16 04:30 Est GFR ( Amer) 107.9 (>60) 09/24/16 04:30 Est GFR (Non-Af Amer) 83.9 (>60) 09/24/16 04:30 BUN/Creatinine Ratio 16.7 (8-20) 09/24/16 04:30 Glucose 144 mg/dL (70-100) H 09/24/16 04:30 Calcium 8.0 mg/dL (8.6-10.3) L 09/24/16 04:30 Total Bilirubin 0.40 mg/dL (0.2-1.0) 09/19/16 05:05 AST 12 U/L (13-39) L 09/19/16 05:05 ALT 13 U/L (7-52) 09/19/16 05:05 Alkaline Phosphatase 49 U/L (34-104) 09/19/16 05:05 C-Reactive Protein 226.42 mg/L (< 5.00) H 09/24/16 04:30 Total Protein 7.0 g/dL (6.4-8.9) 09/19/16 05:05 Albumin 3.4 g/dL (3.2-5.2) 09/19/16 05:05 Globulin 3.6 g/dL (2-4) 09/19/16 05:05 Albumin/Globulin Ratio 0.9 (1-3) L 09/19/16 05:05 Urine Color Yellow 09/19/16 17:30 Urine Appearance Cloudy 09/19/16 17:30 Urine pH 5.0 (5-9) 09/19/16 17:30 Ur Specific [place] 1.018 (1.010-1.030) 09/19/16 17:30 Urine Protein Negative (Negative) 09/19/16 17:30 Urine Ketones Negative (Negative) 09/19/16 17:30 Urine Blood Negative (Negative) 09/19/16 17:30 Urine Nitrate Negative (Negative) 09/19/16 17:30 Urine Bilirubin Negative (Negative) 09/19/16 17:30 Urine Urobilinogen Negative (Negative) 09/19/16 17:30 Ur Leukocyte Esterase Negative (Negative) 09/19/16 17:30 Urine Glucose Negative (Negative) 09/19/16 17:30 Urine Ascorbic Acid * (Negative) H 09/19/16 17:30 Fluid Source Pleural fluid 09/21/16 12:40 Fluid Volume 10 mL 09/21/16 12:40 Fluid Color Yellow 09/21/16 12:40 Fluid Appearance Cloudy 09/21/16 12:40 Fluid WBC 28068 /mcL (0-695340) 09/21/16 12:40 Fluid RBC 1103 /mcL 09/21/16 12:40 Fluid Tot Cell Count 100 09/21/16 12:40 Fluid Neutrophils 99 % 09/21/16 12:40 Fluid Lymphocytes 1 % 09/21/16 12:40 Fluid Cell Count Rvw By 09/21/16 12:40 Fluid Glucose < 2 mg/dL 09/21/16 12:40 Fluid Total Protein 4.6 g/dL 09/21/16 12:40 Fluid LDH 3740 U/L 09/21/16 12:40 Vancomycin Trough 12.4 mcg/mL 09/24/16 08:10 Cryptococcus Ag Negative (Negative) 09/22/16 06:10 HIV 1&2 Antibody Nonreactive (Nonreactive) 09/22/16 06:10 I/R: Pt is a 66 yo M with h/o OA, nephrolithiasis and history of lyme disease who presented to the ER with c/o severe R sided chest pain in the setting of recently identified RLL lung masses. Pt with no fever o other signs of infection recently therefore malignancy was considered high in differential and he was scheduled to have lung biopsy on 09/20/16. He presented through ED for worsening chest pain and had rpt CT chest which showed interval progression of lung mass in RML and pleural effusion. Pt is s/p CT guided lung biopsy negative for malignancy, inflammation noted, cx negative to date. He was also started on broad spectrum abx. Pt with significant chest discomfort, given large effusion, thoracentesis was performed, only 60cc of dark tubid fluid removed, s/p chest tube placement Septic w/u negative to date. Leucocytosis is improving. c/w Rocephin, Vanco. Antifungal added today as per ID recommendations. Pt had CT chest repeated that showed loculated effusions with isolated pocket near RML and another pocket anteriorly close to chest wall. Chest tube in place and is able to drain fluid more posteriorly. Is receiving tPA currently. Basal atelectasis on rt base also noted. Fluid in ant chest wall appears to be having air concerning for empyema. Await response to fibrinolytics, surgery following.
[2016-09-24] MEDS: DORNASE ALFA 1 mg/ml(NF) 5 MG in NS 0.9% 50 ML INTRAPLEUR SCH ×2 (11:29→17:30)
[2016-09-24] MEDS: Alteplase (CATHFLO)* 10 MG in NS 0.9% 50 ML* 40 ML INTRAPLEUR SCH ×2 (11:29→17:30)
--- NOTE | 2016-09-24 11:41 | PN ---
Progress Note - Progress Note Note: Surgery followup: S: spoke w/ Drs. Hayes and Kaleb. Pt just medicated w/ Dilaudid 1 mg. O: ~ 200 ml drainage since ~1900 last pm. A/P: loculated R pleura effusion; Dornase and Alteplase (50 ml each) infused via chest tube w/ patient in L lat decub position. Well el'd. Small amt of leakage toward the end of the procedure. Will repeat later today, then qd over the wkend.
--- NOTE | 2016-09-24 14:28 | PN ---
Subjective Date of Service: 09/24/16 Interval History: pt is seen after dornase and Ateplase infusion via chest tube. Pain with cough lessened in the past 24H. Family History: Unchanged from Admission Social History: Unchanged from Admission Past Medical History: Unchanged from Admission Objective Active Medications: Acetaminophen (Tylenol Tab*) 650 mg PO Q4H PRN PRN Reason: FEVER/HEADACHE Last Admin: 09/23/16 20:20 Dose: 650 mg Cholecalciferol (Vitamin D Tab*) 1,000 units PO DAILY [facility] Last Admin: 09/24/16 09:11 Dose: 1,000 units Heparin Sodium (Porcine) (Heparin Vial(*)) 5,000 units SUBCUT Q8HR [facility] Last Admin: 09/24/16 06:01 Dose: 5,000 units Heparin Sodium (Porcine) (Heparin Flush Picc/Ml/Cvc(*)) 1 ml FLUSH 0600,1800 [facility] PRN Reason: Protocol Last Admin: 09/24/16 04:22 Dose: 1 ml Hydromorphone HCl (Dilaudid Iv*) 1 mg IV SLOW PU Q2H PRN PRN Reason: PAIN Last Admin: 09/24/16 10:43 Dose: 1 mg Ceftriaxone Sodium 1,000 mg/ (Sodium Chloride) 50 mls @ 200 mls/hr IVPB Q24H [facility] Last Admin: 09/24/16 08:10 Dose: 200 mls/hr Alteplase, Recombinant 10 mg/ (Sodium Chloride) 50 mls @ 0 mls/hr INTRAPLEUR BID [facility] PRN Reason: As Directed Stop: 09/26/16 09:01 Last Admin: 09/24/16 11:29 Dose: Not Given Dornase Donte 5 mg/ Sodium (Chloride) 50 mls @ 0 mls/hr INTRAPLEUR BID [facility] PRN Reason: As Directed Stop: 09/26/16 09:01 Last Admin: 09/24/16 11:29 Dose: Not Given Vancomycin HCl 1,500 mg/ (Sodium Chloride) 250 mls @ 166.667 mls/hr IVPB 0030, 0830,1630 [facility] Melatonin (Melatonin (Nf)) 3 mg PO BEDTIME [facility] Last Admin: 09/23/16 20:20 Dose: 3 mg Ondansetron HCl (Zofran Inj*) 4 mg IV Q6H PRN PRN Reason: NAUSEA Pharmacy Consult (Vancomycin Per Pharmacy*) 1 note FOLLOW UP . PRN PRN Reason: PER PROTOCOL Pharmacy Profile Note (Vancomycin Trough Check) 1 note FOLLOW UP 0800 ONE Stop: 09/26/16 08:01 Tamsulosin HCl (Flomax Cap*) 0.4 mg PO QPM [facility] Last Admin: 09/23/16 17:45 Dose: 0.4 mg Vital Signs 09/23/16 09/23/16 09/23/16 16:00 16:06 18:03 Temperature 97.1 F Pulse Rate 74 Respiratory 16 16 Rate Blood Pressure 122/63 (mmHg) O2 Sat by Pulse 92 92 Oximetry 09/23/16 09/23/16 09/24/16 19:03 20:00 00:27 Temperature Pulse Rate Respiratory 20 20 16 Rate Blood Pressure (mmHg) O2 Sat by Pulse Oximetry 09/24/16 09/24/16 09/24/16 00:31 01:27 04:22 Temperature 97.7 F Pulse Rate 66 Respiratory 16 16 16 Rate Blood Pressure 126/70 (mmHg) O2 Sat by Pulse 96 Oximetry 09/24/16 09/24/16 09/24/16 05:22 07:59 10:43 Temperature 97.8 F Pulse Rate 65 Respiratory 18 18 Rate Blood Pressure 132/67 (mmHg) O2 Sat by Pulse 97 Oximetry 09/24/16 11:43 Temperature Pulse Rate Respiratory 16 Rate Blood Pressure (mmHg) O2 Sat by Pulse Oximetry Oxygen Devices in Use Now: Nasal Cannula - at 2 l Appearance: 66 yo M in NAD, aAOx3 Eyes: No Scleral Icterus, PERRLA Ears/Nose/Mouth/Throat: NL Teeth, Lips, Gums, Mucous Membranes Moist Neck: NL Appearance and Movements; NL JVP, Trachea Midline Respiratory: Symmetrical Chest Expansion and Respiratory Effort, - - crackles at RLL, chest tube present in R chest Cardiovascular: NL Sounds; No Murmurs; No JVD, RRR Abdominal: NL Sounds; No Tenderness; No Distention, No Hepatosplenomegaly Lymphatic: No Cervical Adenopathy Extremities: No Edema, No Clubbing, Cyanosis Skin: No Rash or Ulcers, No Nodules or Sclerosis Neurological: Alert and Oriented x 3, NL Muscle Strength and Tone Result Diagrams: 09/24/16 04:30 09/24/16 04:30 Additional Lab and Data: Lab Results 09/19/16 Range/Units 05:05 WBC 12.6 H (3.5-10.8) 10^3/ul RBC 4.03 (4.0-5.4) 10^6/ul Hgb 12.5 L (14.0-18.0) g/dl Hct 38 L (42-52) % MCV 93 (80-94) fL MCH 31 (27-31) pg MCHC 33 (31-36) g/dl RDW 13 (10.5-15) % Plt Count 424 (150-450) 10^3/ul MPV 9 (7.4-10.4) um3 Neut % (Auto) 88.1 H (38-83) % Lymph % (Auto) 5.8 L (25-47) % [place] % (Auto) 4.8 (1-9) % Eos % (Auto) 1.0 (0-6) % Baso % (Auto) 0.3 (0-2) % Absolute Neuts (auto) 11.1 H (1.5-7.7) 10^3/ul Absolute Lymphs (auto) 0.7 L (1.0-4.8) 10^3/ul Absolute Monos (auto) 0.6 (0-0.8) 10^3/ul Absolute Eos (auto) 0.1 (0-0.6) 10^3/ul Absolute Basos (auto) 0 (0-0.2) 10^3/ul Absolute Nucleated RBC 0 10^3/ul Nucleated RBC % 0 Microbiology and Other Data: Microbiology 09/20/16 16:20 Gram Stain - Final Misc Fluid (See Comment) - Aspirate Body Fluid Culture - Preliminary No Growth Day 1 09/20/16 16:20 Acid Fast Bacilli Smear - Final Respiratory - Aspirate 09/20/16 09:39 Acid Fast Bacilli Smear - Final Respiratory 09/20/16 11:00 Legionella Urinary Antigen - Final Urine Negative Legionella Streptococcus pneumoniae Ag Screen - Final Negative S. pneumo Antigen 09/20/16 09:30 Gram Stain - Final Sputum Expectorated Assess/Plan/Problems-Billing Assessment: Mr Mcdonnell is a 66 yo M who has a h/o OA, nephrolithiasis and history of lyme disease who presented to the ER wtih c/o severe R sided chest pain in the setting of recently identified RLL lung masses. He was admitted for further management and evaluation of the lung mass and possible post obstructive pneumonia. - Patient Problems (1) RLL pneumonia Comment: - The patient's CT showed significant changes from the CT scan done with worsening leukocytosis. - Cultures so far show no growth. - ID consult appreciated - continue Ceftriaxone, Vancomycin - Differential includes bacterial infection, Histoplasmosis, Cryptococcosis - work up sent. - AFB x3 negative. - Pulm input appreciated - fluid is an empyema. Recommended fibrinolytics and surgery evaluation for possible VATS. - Biopsy was negative for malignancy. - S/p chest tube placement 09/22/[address] Chaudhary.Plan to cont tx with Dornase and TPA infusions daiily and re-eval with another CT in Tuesday or Tuesday. (2) BPH (benign prostatic hyperplasia) Comment: - Continue Flomax. (3) DVT prophylaxis Comment: - SQ heparin. (4) Full code status Status and Disposition: Inpatient.
[2016-09-24] MEDS ORDERED: DORNASE ALFA 1 mg/ml(NF) 5 MG in NS 0.9% 50 ML* 45 ML INTRAPLEUR ONE (15:00)
[2016-09-24] MEDS ORDERED: Alteplase* 100 MG VIAL ONE (15:00)
[2016-09-24] MEDS: Vancomycin(*) 1,500 MG in NS 0.9% 250 ML* 250 ML IVPB SCH (16:20)
--- NOTE | 2016-09-24 17:37 | SURGPN ---
Subjective - Introduction -: Reports doing the same, no new c/o. No dyspnea. - Medications -: Active Medications Generic Name Dose Route Start Last Admin Trade Name Freq PRN Reason Stop Dose Admin Acetaminophen 650 mg 09/19/16 06:17 09/23/16 20:20 Tylenol Tab* PO 650 mg Q4H PRN Administration FEVER/HEADACHE Cholecalciferol 1,000 units 09/19/16 09:00 09/24/16 09:11 Vitamin D Tab* PO 1,000 units DAILY ANSHU Administration Heparin Sodium (Porcine) 5,000 units 09/21/16 22:00 09/24/16 14:51 Heparin Vial(*) SUBCUT 5,000 units Q8HR ANSHU Administration Heparin Sodium (Porcine) 1 ml 09/23/16 18:00 09/24/16 04:22 Heparin Flush Picc/Ml/Cvc(*) FLUSH 1 ml 0600,1800 ANSHU Administration Protocol Hydromorphone HCl 1 mg 09/24/16 14:38 09/24/16 14:49 Dilaudid Iv* IV SLOW PU 1 mg Q4H PRN Administration PAIN Ceftriaxone Sodium 1,000 mg/ 50 mls @ 200 mls/hr 09/20/16 07:30 09/24/16 08: 10 Sodium Chloride IVPB 200 mls/hr Q24H ANSHU Administration Alteplase, Recombinant 10 mg/ 50 mls @ 0 mls/hr 09/24/16 09:00 09/24/16 11:29 Sodium Chloride INTRAPLEUR 09/26/16 09:01 Not Given BID ANSHU As Directed Dornase Donte 5 mg/ Sodium 50 mls @ 0 mls/hr 09/24/16 09:00 09/24/16 11:29 Chloride INTRAPLEUR 09/26/16 09:01 Not Given BID ANSHU As Directed Vancomycin HCl 1,500 mg/ 250 mls @ 166.667 mls/hr 09/24/16 16:30 09/24/16 16: 20 Sodium Chloride IVPB 166.667 mls/hr 0030,0830,1630 ANSHU Administration Melatonin 3 mg 09/23/16 21:00 09/23/16 20:20 Melatonin (Nf) PO 3 mg BEDTIME ANSHU Administration Ondansetron HCl 4 mg 09/22/16 11:08 Zofran Inj* IV Q6H PRN NAUSEA Oxycodone HCl 5 mg 09/24/16 14:38 Roxycodone Tab* PO Q4H PRN PAIN Pharmacy Consult 1 note 09/21/16 14:27 Vancomycin Per Pharmacy* FOLLOW UP . PRN PER PROTOCOL Pharmacy Profile Note 1 note 09/26/16 08:00 Vancomycin Trough Check FOLLOW UP 09/26/16 08:01 0800 ONE Tamsulosin HCl 0.4 mg 09/21/16 18:00 09/23/16 17:45 Flomax Cap* PO 0.4 mg QPM ANSHU Administration Objective - Objective -: Awake and alert, in NAD. - Intake and Output -: Intake & Output 09/22/16 09/23/16 09/24/16 09/25/16 06:59 06:59 06:59 06:59 Intake Total 1695 1150 1739 520 Output Total 0 Balance 1695 1150 1739 520 Weight 181 lb Intake: IV Fluids 60 ABX - VANCOMYCIN 30 Voriconazole 30 IVPB 265 850 259 ABX - VANCOMYCIN 500 259 Voriconazole 265 350 Oral 6753 611 3978 520 Output: Urine 0 Other: Estimated Void Small # Bowel Movements 1 1 2 Estimated Stool Amount Medium # Voids 2 2 1 3 Surgical Physical Exam - Comments -: Chest tube was clamped and a mix of Alteprase and Dornase were injected into chest tube. Evidence of a very mild leak noted around insertion site. Pt tolerated procedure well. Assessment and Plan - Assessment -: A 66 y/o male with R plural effusion - Plan Additional Comments: Will try to rotate between prone and left decubitus every 30 min as tolerated. After 2 hrs, clamp will be removed and will resume wall suction.
[2016-09-24] MEDS: Tamsulosin CAP* 0.4 MG PO SCH (18:41)
[2016-09-24] MEDS: oxyCODONE TAB* 5 MG TAB PO PRN (18:41)
[2016-09-24] MEDS: CMCS: Melatonin (NF) 3 MG TAB PO SCH (22:04)
[2016-09-25 00:19] LABS: BF PH 6.4
[2016-09-25] MEDS: Vancomycin(*) 1,500 MG in NS 0.9% 250 ML* 250 ML IVPB SCH ×3 (00:54→16:37)
[2016-09-25] MEDS: Heparin VIAL(*) 5000 UNITS/ML VIAL (FIVE THOUSAND) SUBCUT SCH ×3 (06:20→21:15)
[2016-09-25] MEDS: HYDROmorphone INJ* 1 MG/ML CARPUJECT SYRINGE IV SLOW PU PRN ×3 (06:23→13:19)
[2016-09-25] MEDS: cefTRIAXone VIAL(*) 1,000 MG in NS 0.9% 50 ML* 50 ML IVPB SCH (07:26)
--- NOTE | 2016-09-25 09:47 | PN ---
Progress Note - Progress Note Note: Surgery Procedure Note Alteplase/Dornase instilled into chest tube. Attempted via open end (while tube clamped) at first, but seal not adequate. Then instilled via 18 guage needle at an angle into chest tube while distal end clamped. Additional clamp applied proximal to slight leaks via old needle holes. Pt. tolerated well, minimal if any leaking around tube while pt on left side. Pt. will turn q 30 min for 2 hours. CLFoster
[2016-09-25] MEDS: Cholecalciferol TAB* 1000 UNITS PO SCH (10:12)
[2016-09-25] MEDS: Alteplase (CATHFLO)* 10 MG in NS 0.9% 50 ML* 40 ML INTRAPLEUR SCH ×2 (10:14→17:30)
--- NOTE | 2016-09-25 11:03 | PN ---
Progress Note - Progress Note Note: Pt seen and examined at bedside. Pt reports feeling better. Pain is controlled. No new complaints. Active Medications Generic Name Dose Route Start Last Admin Trade Name Dariusq PRN Reason Stop Dose Admin Acetaminophen 650 mg 09/19/16 06:17 09/23/16 20:20 Tylenol Tab* PO 650 mg Q4H PRN Administration FEVER/HEADACHE Cholecalciferol 1,000 units 09/19/16 09:00 09/25/16 10:12 Vitamin D Tab* PO 1,000 units DAILY ANSHU Administration Heparin Sodium (Porcine) 5,000 units 09/21/16 22:00 09/25/16 06:20 Heparin Vial(*) SUBCUT 5,000 units Q8HR ANSHU Administration Heparin Sodium (Porcine) 1 ml 09/23/16 18:00 09/25/16 06:21 Heparin Flush Picc/Ml/Cvc(*) FLUSH 1 ml 0600,1800 ANSHU Administration Protocol Hydromorphone HCl 1 mg 09/24/16 14:38 09/25/16 10:35 Dilaudid Iv* IV SLOW PU 1 mg Q4H PRN Administration PAIN Ceftriaxone Sodium 1,000 mg/ 50 mls @ 200 mls/hr 09/20/16 07:30 09/25/16 07: 26 Sodium Chloride IVPB 200 mls/hr Q24H ANSHU Administration Alteplase, Recombinant 10 mg/ 50 mls @ 0 mls/hr 09/24/16 09:00 09/25/16 10:14 Sodium Chloride INTRAPLEUR 09/26/16 09:01 Not Given BID ANSHU As Directed Dornase Donte 5 mg/ Sodium 50 mls @ 0 mls/hr 09/24/16 09:00 09/24/16 17:30 Chloride INTRAPLEUR 09/26/16 09:01 50 mls/hr BID ANSHU Administration As Directed Vancomycin HCl 1,500 mg/ 250 mls @ 166.667 mls/hr 09/24/16 16:30 09/25/16 10: 07 Sodium Chloride IVPB 166.667 mls/hr 0030,0830,1630 ANSHU Administration Melatonin 3 mg 09/23/16 21:00 09/24/16 22:04 Melatonin (Nf) PO 3 mg BEDTIME ANSHU Administration Ondansetron HCl 4 mg 09/22/16 11:08 Zofran Inj* IV Q6H PRN NAUSEA Oxycodone HCl 5 mg 09/24/16 14:38 09/24/16 18:41 Roxycodone Tab* PO 5 mg Q4H PRN Administration PAIN Pharmacy Consult 1 note 09/21/16 14:27 Vancomycin Per Pharmacy* FOLLOW UP . PRN PER PROTOCOL Pharmacy Profile Note 1 note 09/26/16 08:00 Vancomycin Trough Check FOLLOW UP 09/26/16 08:01 0800 ONE Tamsulosin HCl 0.4 mg 09/21/16 18:00 09/24/16 18:41 Flomax Cap* PO 0.4 mg QPM ANSHU Administration Vital Signs Temp Pulse Resp BP Pulse Ox 98.7 F 72 18 135/62 97 09/25/16 08:17 09/25/16 08:17 09/25/16 10:35 09/25/16 08:17 09/25/16 08:17 OE: Pt in NAD, alert, awake, oriented x3 HEENT: PERRLA, No JVD Lungs: Diminished a/e at bases R>L CVS: s1, S2+ Abd: Soft, BS+ Ext: Normal ROM Neuro: No focal defecits Skin: No rash Laboratory Results - last 24 hr 09/21/16 09/22/16 12:40 06:10 Fluid Source Pleural fluid Fluid pH 6.4 TB Test (QFT) Nil TNP TB Test Mitogen - Nil TNP TB Test Antigen - Nil TNP TB Test (QFT) TNP I/R: Pt is 66 y o m with lung abscess, empysema, multiloculated pleural effusion s/p chest tube placement and is undergoing tPA given loculated effusion Pt with good out put through chest tube, clinically improving To c/w tPA over weekend To be reassessed Tuesday If continues to have loculated effusion, would need surgical management c/w abx Cx negative to date
--- NOTE | 2016-09-25 16:00 | PN ---
Subjective Date of Service: 09/25/16 Interval History: HOSPITALIST PROGRESS NOTE Patient seen and examined at bedside. He feels well today. Pain is controlled, dyspnea is improved. Cough still present, but less intense. Family History: Unchanged from Admission Social History: Unchanged from Admission Past Medical History: Unchanged from Admission Objective Active Medications: Acetaminophen (Tylenol Tab*) 650 mg PO Q4H PRN PRN Reason: FEVER/HEADACHE Last Admin: 09/23/16 20:20 Dose: 650 mg Cholecalciferol (Vitamin D Tab*) 1,000 units PO DAILY [facility] Last Admin: 09/25/16 10:12 Dose: 1,000 units Heparin Sodium (Porcine) (Heparin Vial(*)) 5,000 units SUBCUT Q8HR [facility] Last Admin: 09/25/16 13:19 Dose: 5,000 units Heparin Sodium (Porcine) (Heparin Flush Picc/Ml/Cvc(*)) 1 ml FLUSH 0600,1800 ANSHU PRN Reason: Protocol Last Admin: 09/25/16 06:21 Dose: 1 ml Hydromorphone HCl (Dilaudid Iv*) 1 mg IV SLOW PU Q4H PRN PRN Reason: PAIN Last Admin: 09/25/16 13:19 Dose: 1 mg Ceftriaxone Sodium 1,000 mg/ (Sodium Chloride) 50 mls @ 200 mls/hr IVPB Q24H [facility] Last Admin: 09/25/16 07:26 Dose: 200 mls/hr Alteplase, Recombinant 10 mg/ (Sodium Chloride) 50 mls @ 0 mls/hr INTRAPLEUR BID [facility] PRN Reason: As Directed Stop: 09/26/16 09:01 Last Admin: 09/25/16 10:14 Dose: Not Given Dornase Donte 5 mg/ Sodium (Chloride) 50 mls @ 0 mls/hr INTRAPLEUR BID [facility] PRN Reason: As Directed Stop: 09/26/16 09:01 Last Admin: 09/24/16 17:30 Dose: 50 mls/hr Vancomycin HCl 1,500 mg/ (Sodium Chloride) 250 mls @ 166.667 mls/hr IVPB 0030, 0830,1630 [facility] Last Admin: 09/25/16 10:07 Dose: 166.667 mls/hr Melatonin (Melatonin (Nf)) 3 mg PO BEDTIME [facility] Last Admin: 09/24/16 22:04 Dose: 3 mg Ondansetron HCl (Zofran Inj*) 4 mg IV Q6H PRN PRN Reason: NAUSEA Oxycodone HCl (Roxycodone Tab*) 5 mg PO Q4H PRN PRN Reason: PAIN Last Admin: 09/24/16 18:41 Dose: 5 mg Pharmacy Consult (Vancomycin Per Pharmacy*) 1 note FOLLOW UP . PRN PRN Reason: PER PROTOCOL Pharmacy Profile Note (Vancomycin Trough Check) 1 note FOLLOW UP 0800 ONE Stop: 09/26/16 08:01 Tamsulosin HCl (Flomax Cap*) 0.4 mg PO QPM ANSHU Last Admin: 09/24/16 18:41 Dose: 0.4 mg Vital Signs 09/25/16 09/25/16 09/25/16 07:23 08:00 08:17 Temperature 98.7 F Pulse Rate 72 Respiratory 18 18 16 Rate Blood Pressure 135/62 (mmHg) O2 Sat by Pulse 97 97 Oximetry Oxygen Devices in Use Now: Nasal Cannula - at 2 l Appearance: Ppleasant gentleman sitting up in bed in NAD. Eyes: No Scleral Icterus Ears/Nose/Mouth/Throat: Mucous Membranes Moist Neck: Trachea Midline Respiratory: Symmetrical Chest Expansion and Respiratory Effort, - - BS+ bilaterally with no added sounds, decreased in right base, but moving more air. Cardiovascular: NL Sounds; No Murmurs; No JVD, RRR Abdominal: NL Sounds; No Tenderness; No Distention Extremities: No Edema Neurological: Alert and Oriented x 3, NL Muscle Strength and Tone Lines/Tubes/Other Access: Clean, Dry and Intact PICC Line Nutrition: Taking PO's Result Diagrams: 09/24/16 04:30 09/24/16 04:30 Assess/Plan/Problems-Billing Assessment: Mr Mcdonnell is a 66 yo M who has a h/o OA, nephrolithiasis and history of lyme disease who presented to the ER wt c/o severe R sided chest pain in the setting of recently identified RLL lung masses. He was admitted for further management and evaluation of the lung mass and possible post obstructive pneumonia. - Patient Problems (1) RLL pneumonia Comment: - Pleural fluid culture today is growing streptococcus. - Continue Ceftriaxone, Vancomycin. - Differential includes bacterial infection, Histoplasmosis, Cryptococcosis - work up sent. - AFB x3 negative. - Pulm input appreciated - fluid is an empyema. Recommended fibrinolytics and surgery evaluation for possible VATS. - Biopsy was negative for malignancy. - S/p chest tube placement 09/22/[address] Chaudhary.Plan to cont tx with Dornase and TPA infusions daiily and re-eval with another CT chest Tuesday or Tuesday. (2) BPH (benign prostatic hyperplasia) Comment: - Continue Flomax. (3) DVT prophylaxis Comment: - SQ heparin. (4) Full code status Status and Disposition: Inpatient.
[2016-09-25] MEDS: DORNASE ALFA 1 mg/ml(NF) 5 MG in NS 0.9% 50 ML INTRAPLEUR SCH ×2 (17:10→20:57)
[2016-09-25] MEDS: CMCS: Melatonin (NF) 3 MG TAB PO SCH (21:14)
[2016-09-25] MEDS: Tamsulosin CAP* 0.4 MG PO SCH (21:15)
[2016-09-26] MEDS ORDERED: NS 0.9% 250 ML* 250 ML ONE (00:22)
[2016-09-26] MEDS: Vancomycin(*) 1,500 MG in NS 0.9% 250 ML* 250 ML IVPB SCH ×2 (00:26→19:23)
[2016-09-26] MEDS: HYDROmorphone INJ* 1 MG/ML CARPUJECT SYRINGE IV SLOW PU PRN ×4 (00:27→23:21)
[2016-09-26] MEDS: Heparin VIAL(*) 5000 UNITS/ML VIAL (FIVE THOUSAND) SUBCUT SCH ×3 (05:47→23:22)
[2016-09-26] MEDS: cefTRIAXone VIAL(*) 1,000 MG in NS 0.9% 50 ML* 50 ML IVPB SCH (07:34)
[2016-09-26] MEDS ORDERED: Vancomycin Trough Check NOTE FOLLOW UP ONE (08:00)
[2016-09-26] MEDS: Cholecalciferol TAB* 1000 UNITS PO SCH (09:13)
[2016-09-26] MEDS ORDERED: Iohexol 300* (CONTRAST) 10 ML SDV IV ONE (11:04)
[2016-09-26 11:07] LABS: Hematocrit 33 % (42-52); Hemoglobin 10.9 g/dl (14.0-18.0); Mean Corpuscular HGB Conc 33 g/dl (31-36); Mean Corpuscular Hemoglobin 30 pg (27-31); Mean Corpuscular Volume 93 fL (80-94); Mean Platelet Volume 8 um3 (7.4-10.4); Red Blood Count 3.58 10^6/ul (4.0-5.4); Red Cell Distribution Width 14 % (10.5-15); White Blood Count 14.3 10^3/ul (3.5-10.8)
--- NOTE | 2016-09-26 11:10 | PN ---
Progress Note - Progress Note SOAP: Subjective: Pleureval fell over last night and was replace. Pt reports no pain. States he felt his lung "unfolding" yesterday and can breath better. Still has cough. Objective: Vital Signs Temp 98.3 F 09/26/16 08:07 Pulse 67 09/26/16 08:07 Resp 18 09/26/16 09:59 BP 139/71 09/26/16 08:07 Pulse Ox 97 09/26/16 08:07 NAD Lungs: CTA B, chest tube intact with approx 30-50 ml o/p last 12 hr. Assessment: Empyema s/p right chest tube and lytic therapy. Seems to have responded well. No additional lytic planned at this time given drop in drainage. Plan: D/w pt and at length. D/w Dr. Amado. Would proceed with chest CT today. If needs further tx would defer to Dr. Hayes as to further lytics vs. VATS.
[2016-09-26 11:22] LABS: BUN/Creatinine Ratio 12.2 (8-20); Calcium 8.4 mg/dL (8.6-10.3); EGFR African American 107.9 (>60); EGFR Non-African American 83.9 (>60); Potassium 4.1 mmol/L (3.5-5.0)
[2016-09-26] MEDS: Alteplase (CATHFLO)* 10 MG in NS 0.9% 50 ML* 40 ML INTRAPLEUR SCH (14:13)
[2016-09-26] MEDS: DORNASE ALFA 1 mg/ml(NF) 5 MG in NS 0.9% 50 ML INTRAPLEUR SCH (14:14)
--- NOTE | 2016-09-26 14:17 | RAD ---
Indication: Empyema, pneumonia. Contrast: Administered 80.0 ml of OMNIPAQUE 300 mgi/ml CT of the chest was performed after IV contrast administration and compared to previous exam dated September 22, 2016. Moderate-sized loculated right pleural effusion remains in place. It appears to BE smaller than on prior exam. Air is noted in the pleural space. Enhancing collections are noted in the anterior chest which is smaller than on previous exam. There is fluid between the right middle lobe with ring enhancement unchanged from previous exam. Left lung field is clear. The upper medial loculated collection is not significantly changed. IMPRESSION: Decreased size of loculated pleural effusion in the lower chest where chest wall is present. Fluid in the upper medial paramediastinal space is unchanged.
[2016-09-26] MEDS: Vancomycin(*) 1,250 MG in NS 0.9% 250 ML* 250 ML IVPB SCH ×2 (14:20→21:34)
--- NOTE | 2016-09-26 15:03 | PN ---
Subjective Date of Service: 09/26/16 Interval History: HOSPITALIST PROGRESS NOTE Patient seen and examined at bedside. He feels well today. Pain is well controlled, dyspnea is less intense, but cough is still bothersome. Pleurovac had to be changed last night and has had minimal drainage since. Family History: Unchanged from Admission Social History: Unchanged from Admission Past Medical History: Unchanged from Admission Objective Active Medications: Acetaminophen (Tylenol Tab*) 650 mg PO Q4H PRN PRN Reason: FEVER/HEADACHE Last Admin: 09/23/16 20:20 Dose: 650 mg Cholecalciferol (Vitamin D Tab*) 1,000 units PO DAILY ANSHU Last Admin: 09/26/16 09:13 Dose: 1,000 units Heparin Sodium (Porcine) (Heparin Vial(*)) 5,000 units SUBCUT Q8HR [facility] Last Admin: 09/26/16 05:47 Dose: 5,000 units Heparin Sodium (Porcine) (Heparin Flush Picc/Ml/Cvc(*)) 1 ml FLUSH 0600,1800 ANSHU PRN Reason: Protocol Last Admin: 09/26/16 06:00 Dose: 1 ml Hydromorphone HCl (Dilaudid Iv*) 1 mg IV SLOW PU Q4H PRN PRN Reason: PAIN Last Admin: 09/26/16 09:59 Dose: 1 mg Ceftriaxone Sodium 1,000 mg/ (Sodium Chloride) 50 mls @ 200 mls/hr IVPB Q24H ANSHU Last Admin: 09/26/16 07:34 Dose: 200 mls/hr Vancomycin HCl 1,250 mg/ (Sodium Chloride) 250 mls @ 166.667 mls/hr IVPB Q8H ANSHU Last Admin: 09/26/16 14:20 Dose: 166.667 mls/hr Melatonin (Melatonin (Nf)) 3 mg PO BEDTIME [facility] Last Admin: 09/25/16 21:14 Dose: 3 mg Ondansetron HCl (Zofran Inj*) 4 mg IV Q6H PRN PRN Reason: NAUSEA Oxycodone HCl (Roxycodone Tab*) 5 mg PO Q4H PRN PRN Reason: PAIN Last Admin: 09/24/16 18:41 Dose: 5 mg Pharmacy Consult (Vancomycin Per Pharmacy*) 1 note FOLLOW UP . PRN PRN Reason: PER PROTOCOL Pharmacy Profile Note (Vancomycin Trough Check) 1 note FOLLOW UP ONCE ONE Stop: 09/27/16 11:31 Tamsulosin HCl (Flomax Cap*) 0.4 mg PO QPM ANSHU Last Admin: 09/25/16 21:15 Dose: 0.4 mg Vital Signs 09/26/16 09/26/16 09/26/16 08:07 09:59 10:59 Temperature 98.3 F Pulse Rate 67 Respiratory 15 18 18 Rate Blood Pressure 139/71 (mmHg) O2 Sat by Pulse 97 Oximetry Oxygen Devices in Use Now: Nasal Cannula - at 2 l Appearance: Pleasant gentleman sitting up in bed in NAD. Eyes: No Scleral Icterus Ears/Nose/Mouth/Throat: Mucous Membranes Moist Neck: Trachea Midline Respiratory: Symmetrical Chest Expansion and Respiratory Effort, - - BS+ bilaterally, with more air movement on right base Cardiovascular: RRR - Normal S1 and S2 Abdominal: NL Sounds; No Tenderness; No Distention Extremities: No Edema Neurological: Alert and Oriented x 3, NL Muscle Strength and Tone Lines/Tubes/Other Access: Clean, Dry and Intact PICC Line Nutrition: Taking PO's Result Diagrams: 09/26/16 11:00 09/26/16 11:00 Assess/Plan/Problems-Billing Assessment: Mr Mcdonnell is a 66 yo M who has a h/o OA, nephrolithiasis and history of lyme disease who presented to the ER wtih c/o severe R sided chest pain in the setting of recently identified RLL lung masses. He was admitted for further management and evaluation of the lung mass and possible post obstructive pneumonia. - Patient Problems (1) RLL pneumonia Comment: - Pleural fluid culture is growing streptococcus. - Continue Ceftriaxone, Vancomycin. - Differential includes bacterial infection, Histoplasmosis, Cryptococcosis - work up sent and pending. - AFB x3 negative. - Pulm input appreciated - fluid is an empyema. Recommended fibrinolytics and surgery evaluation for possible VATS. - Biopsy was negative for malignancy. - S/p chest tube placement 09/22/[address] Chaudhary. - As drainage has been minimal overnight, Dr. Chaudhary felt further fibrinolytics are not indicated now and recommended repeat CT chest - posterior pleural effusion is much improved, but the anterior collection persists. He'll discuss further management with Dr. Hayes - place another chest tube (anterior ) vs VATS. (2) BPH (benign prostatic hyperplasia) Comment: - Continue Flomax. (3) DVT prophylaxis Comment: - SQ heparin. (4) Full code status Status and Disposition: Inpatient. updated at bedside.
[2016-09-26] MEDS: Tamsulosin CAP* 0.4 MG PO SCH (17:09)
[2016-09-26] MEDS: CMCS: Melatonin (NF) 3 MG TAB PO SCH (21:34)
[2016-09-27] MEDS: Vancomycin(*) 1,250 MG in NS 0.9% 250 ML* 250 ML IVPB SCH ×3 (04:11→20:59)
[2016-09-27] MEDS: HYDROmorphone INJ* 1 MG/ML CARPUJECT SYRINGE IV SLOW PU PRN ×3 (06:07→16:55)
[2016-09-27] MEDS: Heparin VIAL(*) 5000 UNITS/ML VIAL (FIVE THOUSAND) SUBCUT SCH (06:08)
[2016-09-27 06:36] LABS: Hematocrit 33 % (42-52); Hemoglobin 10.6 g/dl (14.0-18.0); Mean Corpuscular HGB Conc 33 g/dl (31-36); Mean Corpuscular Hemoglobin 30 pg (27-31); Mean Corpuscular Volume 92 fL (80-94); Mean Platelet Volume 8 um3 (7.4-10.4); Red Blood Count 3.51 10^6/ul (4.0-5.4); Red Cell Distribution Width 13 % (10.5-15); White Blood Count 12.4 10^3/ul (3.5-10.8)
[2016-09-27 06:40] LABS: Add Diff/Slide Review? Slide Review Added; Comments Flag Yes
[2016-09-27 06:49] LABS: Albumin 2.6 g/dL (3.2-5.2); BUN/Creatinine Ratio 10.9 (8-20); C Reactive Protein 182.25 mg/L (< 5.00); Calcium 8.3 mg/dL (8.6-10.3); EGFR African American 105.2 (>60); EGFR Non-African American 81.8 (>60); Globulin 3.4 g/dL (2-4); Total Bilirubin 0.4 mg/dL (0.2-1.0)
[2016-09-27] MEDS: Cholecalciferol TAB* 1000 UNITS PO SCH (08:03)
[2016-09-27] MEDS: cefTRIAXone VIAL(*) 1,000 MG in NS 0.9% 50 ML* 50 ML IVPB SCH (08:03)
[2016-09-27 08:25] LABS: Erythrocyte Sed Rate 115 mm/Hr (0-40)
--- NOTE | 2016-09-27 09:39 | PN ---
Progress Note - Progress Note SOAP: Subjective: DOS: 09/27/16 CC: lung infection HPI: 66 yo man with approx 2 weeks of progressive right chest pain, cough, and dyspnea. R lung masses and pleaural effusion, had trans throacic biopsy which he tolerated well. Chest tube placed 09/22 with serosanguinous fluid and fibrin, decreased output. No fever, rash, or diarrhea. No chest pain, some cough. Objective: [] Vital Signs Temp 36.8 C 09/27/16 08:02 Pulse 73 09/27/16 08:02 Resp 18 09/27/16 08:02 BP 127/58 09/27/16 08:02 Pulse Ox 97 09/27/16 08:02 Intake & Output 09/26/16 09/27/16 09/27/16 18:59 06:59 18:59 Intake Total 1000 1160 Output Total 23 Balance 977 1160 Weight 181 lb Intake: IV Fluids 60 ns 60 IVPB 550 ABX - VANCOMYCIN 550 Oral 1000 550 Output: Chest Tube #1 23 Other: # Voids 2 Gen:no distress Neuro:Awake, Ox3 HEENT:PERRL, MMM Neck:Supple Heart:RRR no murmur Lungs:Decr BS R base Chest R chest tube, no chest tenderness to palpation Abd:+BS NTND soft Skin: no rash MSK: no spine tenderness CT chest 09/26: smaller basal right pleural collection, 2 anterior collections persist Assessment: 1. multifocal right lung abscess and multiple empyema s/p chest tube. Due to Viridans Grp Strep. 2. elevated WBC and CRP, improving 3. cough Plan: 1. Vanco goal tr 15-20, ceftriaxone pending susceptibility data, will need another 4 weeks IV antibiotics 2. IR evaluation pending for drainage of remaining collections
[2016-09-27] MEDS ORDERED: Vancomycin Trough Check NOTE FOLLOW UP ONE (11:30)
--- NOTE | 2016-09-27 13:10 | RAD ---
INDICATION: Loculated pleural effusion COMPARISON: CT of the chest dated September 26, 2016 TECHNIQUE: Real time ultrasound images of the right hemithorax were acquired with sheehan scale and Doppler color flow imaging. FINDINGS: Limited sonographic imaging shows an anterior pleural collection that appears to communicate medially to the patient's known medial pleural collection. IMPRESSION: Sonographic imaging as described above for the purpose of percutaneous drain placement.
[2016-09-27 16:23] LABS: Coccidiodes Complement Fix Negative (Negative); Coccidioides IgG Antibody Negative (Negative); Coccidioides IgM Antibody Negative (Negative)
[2016-09-27] MEDS: Tamsulosin CAP* 0.4 MG PO SCH (16:59)
--- NOTE | 2016-09-27 17:05 | PN ---
Subjective Date of Service: 09/27/16 Interval History: HOSPITALIST PROGRESS NOTE Patient seen and examined at bedside. He offers no new complaints today. Pain is controlled, dyspnea is improved, cough is still bothersome. Family History: Unchanged from Admission Social History: Unchanged from Admission Past Medical History: Unchanged from Admission Objective Active Medications: Acetaminophen (Tylenol Tab*) 650 mg PO Q4H PRN PRN Reason: FEVER/HEADACHE Last Admin: 09/23/16 20:20 Dose: 650 mg Cholecalciferol (Vitamin D Tab*) 1,000 units PO DAILY [facility] Last Admin: 09/27/16 08:03 Dose: 1,000 units Heparin Sodium (Porcine) (Heparin Flush Picc/Ml/Cvc(*)) 1 ml FLUSH 0600,1800 ANSHU PRN Reason: Protocol Last Admin: 09/27/16 06:07 Dose: 1 ml Hydromorphone HCl (Dilaudid Iv*) 1 mg IV SLOW PU Q4H PRN PRN Reason: PAIN Last Admin: 09/27/16 10:31 Dose: 1 mg Ceftriaxone Sodium 1,000 mg/ (Sodium Chloride) 50 mls @ 200 mls/hr IVPB Q24H [facility] Last Admin: 09/27/16 08:03 Dose: 200 mls/hr Vancomycin HCl 1,250 mg/ (Sodium Chloride) 250 mls @ 166.667 mls/hr IVPB Q8H [facility] Last Admin: 09/27/16 13:08 Dose: 166.667 mls/hr Melatonin (Melatonin (Nf)) 3 mg PO BEDTIME [facility] Last Admin: 09/26/16 21:34 Dose: 3 mg Ondansetron HCl (Zofran Inj*) 4 mg IV Q6H PRN PRN Reason: NAUSEA Oxycodone HCl (Roxycodone Tab*) 5 mg PO Q4H PRN PRN Reason: PAIN Last Admin: 09/24/16 18:41 Dose: 5 mg Pharmacy Consult (Vancomycin Per Pharmacy*) 1 note FOLLOW UP . PRN PRN Reason: PER PROTOCOL Tamsulosin HCl (Flomax Cap*) 0.4 mg PO QPM [facility] Last Admin: 09/26/16 17:09 Dose: 0.4 mg Vital Signs 09/27/16 09/27/16 09/27/16 08:00 08:02 10:31 Temperature 98.2 F Pulse Rate 73 Respiratory 18 18 18 Rate Blood Pressure 127/58 (mmHg) O2 Sat by Pulse 97 97 Oximetry Oxygen Devices in Use Now: Nasal Cannula - at 2 l Appearance: Pleasant gentleman sitting up in bed in NAD. Eyes: No Scleral Icterus Ears/Nose/Mouth/Throat: Mucous Membranes Moist Neck: Trachea Midline Respiratory: Symmetrical Chest Expansion and Respiratory Effort, - - BS+ bilaterally decreased in right base, no added sounds Cardiovascular: RRR - Normal S1 and S2 Abdominal: NL Sounds; No Tenderness; No Distention Extremities: No Edema Neurological: Alert and Oriented x 3, NL Muscle Strength and Tone Lines/Tubes/Other Access: Clean, Dry and Intact PICC Line Nutrition: Taking PO's Result Diagrams: 09/27/16 06:20 09/27/16 06:20 Assess/Plan/Problems-Billing Assessment: Mr Mcdonnell is a 66 yo M who has a h/o OA, nephrolithiasis and history of lyme disease who presented to the ER wtih c/o severe R sided chest pain in the setting of recently identified RLL lung masses. He was admitted for further management and evaluation of the lung mass and possible post obstructive pneumonia. - Patient Problems (1) RLL pneumonia Comment: - Pleural fluid culture is growing Streptococcus constellatus, sensitivity pending. - Continue Ceftriaxone, Vancomycin. - Differential includes bacterial infection, Histoplasmosis, Cryptococcosis - HIV, coccidioides, cryptococcus are negative. - AFB x3 negative. - Pulm input appreciated - fluid is an empyema. Recommended fibrinolytics and surgery evaluation for possible VATS. - Biopsy was negative for malignancy. - S/p chest tube placement 09/22/[address] Chaudhary. - As drainage has been minimal overnight, Dr. Chaudhary felt further fibrinolytics are not indicated now and recommended repeat CT chest - posterior pleural effusion is much improved, but the anterior collection persists. D/w Dr. Hayes and Dr. Kenyon - plan for pigtail placement to the anterior collection. (2) BPH (benign prostatic hyperplasia) Comment: - Continue Flomax. (3) DVT prophylaxis Comment: - SQ heparin on hold for pigtail placement tomorrow. (4) Full code status Status and Disposition: Inpatient. updated at bedside.
--- NOTE | 2016-09-27 17:48 | PN ---
Progress Note - Progress Note Note: Pulm consult f/u note 09/27/16 Pt seen and examined at bedside. Pt reports improvment in breathing and fatigue. Chest tube with no significant out put. Last tPA on Tuesday Active Medications Generic Name Dose Route Start Last Admin Trade Name Freq PRN Reason Stop Dose Admin Acetaminophen 650 mg 09/19/16 06:17 09/23/16 20:20 Tylenol Tab* PO 650 mg Q4H PRN Administration FEVER/HEADACHE Cholecalciferol 1,000 units 09/19/16 09:00 09/27/16 08:03 Vitamin D Tab* PO 1,000 units DAILY ANSHU Administration Heparin Sodium (Porcine) 1 ml 09/23/16 18:00 09/27/16 16:59 Heparin Flush Picc/Ml/Cvc(*) FLUSH 1 ml 0600,1800 ANSHU Administration Protocol Hydromorphone HCl 1 mg 09/24/16 14:38 09/27/16 16:55 Dilaudid Iv* IV SLOW PU 1 mg Q4H PRN Administration PAIN Ceftriaxone Sodium 1,000 mg/ 50 mls @ 200 mls/hr 09/20/16 07:30 09/27/16 08: 03 Sodium Chloride IVPB 200 mls/hr Q24H ANSHU Administration Vancomycin HCl 1,250 mg/ 250 mls @ 166.667 mls/hr 09/26/16 12:00 09/27/16 13: 08 Sodium Chloride IVPB 166.667 mls/hr Q8H ANSHU Administration Melatonin 3 mg 09/23/16 21:00 09/26/16 21:34 Melatonin (Nf) PO 3 mg BEDTIME ANSHU Administration Ondansetron HCl 4 mg 09/22/16 11:08 Zofran Inj* IV Q6H PRN NAUSEA Oxycodone HCl 5 mg 09/24/16 14:38 09/24/16 18:41 Roxycodone Tab* PO 5 mg Q4H PRN Administration PAIN Pharmacy Consult 1 note 09/21/16 14:27 Vancomycin Per Pharmacy* FOLLOW UP . PRN PER PROTOCOL Tamsulosin HCl 0.4 mg 09/21/16 18:00 09/27/16 16:59 Flomax Cap* PO 0.4 mg QPM ANSHU Administration Vital Signs Temp Pulse Resp BP Pulse Ox 98.2 F 73 18 127/58 97 09/27/16 08:02 09/27/16 08:02 09/27/16 16:55 09/27/16 08:02 09/27/16 14:20 OE: Pt in NAD, alert, awake, oriented x3 HEENT: PERRLA, No JVD Lungs: Diminished a/e at bases R>L CVS: s1, S2+ Abd: Soft, BS+ Ext: Normal ROM Neuro: No focal defecits Skin: No rash Laboratory Results - last 24 hr 09/22/16 09/27/16 09/27/16 06:10 06:20 06:20 WBC 12.4 H RBC 3.51 L Hgb 10.6 L Hct 33 L MCV 92 MCH 30 MCHC 33 RDW 13 Plt Count 406 MPV 8 Neut % (Auto) 83.1 H Lymph % (Auto) 8.2 L [place] % (Auto) 6.7 Eos % (Auto) 1.6 Baso % (Auto) 0.4 Absolute Neuts (auto) 10.3 H Absolute Lymphs (auto) 1.0 Absolute Monos (auto) 0.8 Absolute Eos (auto) 0.2 Absolute Basos (auto) 0.1 Absolute Nucleated RBC 0 Nucleated RBC % 0 ESR 115 H Sodium 134 Potassium 4.0 Chloride 98 L Carbon Dioxide 29 Anion Gap 7 BUN 10 Creatinine 0.92 Est GFR ( Amer) 105.2 Est GFR (Non-Af Amer) 81.8 BUN/Creatinine Ratio 10.9 Glucose 113 H Calcium 8.3 L Total Bilirubin 0.40 AST 62 H ALT 72 H Alkaline Phosphatase 68 C-Reactive Protein 182.25 H Total Protein 6.0 L Albumin 2.6 L Globulin 3.4 Albumin/Globulin Ratio 0.8 L Vancomycin Trough Coccidioides Ab (CF) Negative Coccidioides IgG Ab Negative Coccidioides IgM Ab Negative 09/27/16 10:45 WBC RBC Hgb Hct MCV MCH MCHC RDW Plt Count MPV Neut % (Auto) Lymph % (Auto) [place] % (Auto) Eos % (Auto) Baso % (Auto) Absolute Neuts (auto) Absolute Lymphs (auto) Absolute Monos (auto) Absolute Eos (auto) Absolute Basos (auto) Absolute Nucleated RBC Nucleated RBC % ESR Sodium Potassium Chloride Carbon Dioxide Anion Gap BUN Creatinine Est GFR ( Amer) Est GFR (Non-Af Amer) BUN/Creatinine Ratio Glucose Calcium Total Bilirubin AST ALT Alkaline Phosphatase C-Reactive Protein Total Protein Albumin Globulin Albumin/Globulin Ratio Vancomycin Trough 18.5 Coccidioides Ab (CF) Coccidioides IgG Ab Coccidioides IgM Ab Laboratory Results - last 24 hr 09/21/16 09/22/16 12:40 06:10 Fluid Source Pleural fluid Fluid pH 6.4 TB Test (QFT) Nil TNP TB Test Mitogen - Nil TNP TB Test Antigen - Nil TNP TB Test (QFT) TNP I/R: Pt is 66 y o m with lung abscess, empysema, multiloculated pleural effusion s/p chest tube placement and is undergoing tPA given loculated effusion Pt completed tPA through chest tube, clinically improving Rpt Ct chest was personally reviewed, no change in loculated ant fluid collection Pt to have pig tail inserted today for ant collection Post chest tube not draining much, to reassess until ant drain is inserted If continues to have loculated effusion, would need surgical management c/w abx D/w Dr Taylor
[2016-09-28] MEDS: HYDROmorphone INJ* 1 MG/ML CARPUJECT SYRINGE IV SLOW PU PRN ×4 (00:11→20:31)
[2016-09-28] MEDS: CMCS: Melatonin (NF) 3 MG TAB PO SCH ×2 (00:11→20:45)
[2016-09-28] MEDS: Vancomycin(*) 1,250 MG in NS 0.9% 250 ML* 250 ML IVPB SCH (04:49)
[2016-09-28] MEDS: cefTRIAXone VIAL(*) 1,000 MG in NS 0.9% 50 ML* 50 ML IVPB SCH (07:12)
[2016-09-28] MEDS: Cholecalciferol TAB* 1000 UNITS PO SCH (07:13)
[2016-09-28] MEDS ORDERED: fentaNYL* 50 MCG/ML 2 ML VIAL (100 MCG VIAL) ONE ×2 (09:47→11:28)
[2016-09-28 13:39] LABS: M tuberculosis by Quantiferon Negative (Negative); TB Ag minus Nil Result -0.01 IU/mL
--- NOTE | 2016-09-28 14:21 | PN ---
Progress Note - Progress Note Note: Surgery Progress: just returned from Radiology where a pigtail catheter was placed by Dr. Kenyon. Per the nurse, he aspirated 12 cc of thick, viscous fluid. The tube is presently capped off. The large bore chest tube is draining a small amt of clear paty fluid. I left Dr. Freddy manzo msg w/ question of whether to proceed w/ Alteplase & Dornase via the pigtail. Will await his directive.
--- NOTE | 2016-09-28 14:40 | RAD ---
CPT II Codes: 6045F INDICATION: Loculated pleural collection COMPARISON: Ultrasound of the chest dated September 27, [address] of the chest dated September 26, 2016 FLUOROSCOPY TIME: 2 minutes and 9 seconds ANESTHESIA AND OTHER PERIOPERATIVE MEDICATIONS: 1% lidocaine locally. Intravenous fentanyl. PROCEDURE NOTE AND IMAGING FINDINGS: The benefits and risks of the procedure explained to the patient. The patient consented to the procedure. Preliminary sonographic exam demonstrates heterogeneous material in the pleural space along the anterior medial chest. Color flow analysis does not show any pulsating arteries in the intended percutaneous tract or in the immediate vicinity of the planned drain placement. The patient was brought to the fluoroscopy suite and positioned in the supine position. A formal time out was preformed with the technologist and nursing staff. The intended percutaneous abscess drain site was prepped and draped in the usual sterile fashion. The patient was given intravenous sedation and local anesthesia with 1% lidocaine. Using ultrasound guidance the collection was accessed percutaneously with a 10-Kinyarwanda Skater drainage catheter according to the trocar technique. An ultrasound image was saved confirming correct positioning of the needle tip in the collection. An approximately 5 mL sample of purulent and fibrinous material was aspirated into a syringe, capped and sent to the laboratory for analysis. Under fluoroscopic control dilute contrast was injected outlining the abscess cavity. No fistulous communication with the vasculature or right lung was observed. With fluoroscopic guidance the pigtail catheter was positioned into the pleural abscess cavity. The the cavity was gently irrigated with sterile saline. The catheter was secured to the skin and the site was dressed with sterile gauze. The tube was connected to a three-way stopcock and the tube was "clamped". The patient tolerated the procedure well without incident. IMPRESSION: Uncomplicated placement of 10 Kinyarwanda pigtail drainage catheter into the medial anterior pleural space abscess cavity with ultrasound and fluoroscopic guidance as described in the report. PLAN: 1. The drainage catheter was attached to a three-way stopcock and "clamped" as it did not appear any fluid material was going to drain via gravity drainage. 2. TPA lytic therapy and drainage as directed by thoracic surgery. 3. The drain should be gently flushed with 10 mL sterile saline every 12 hours. (Do not aspirate the drain). 4. Follow-up laboratory samples. The plan was discussed with Dr. Cheney over the telephone at approximately 1400 hours on September 28, 2016.
[2016-09-28] MEDS: oxyCODONE TAB* 5 MG TAB PO PRN (15:33)
--- NOTE | 2016-09-28 16:46 | PN ---
Subjective Date of Service: 09/28/16 Interval History: HOSPITALIST PROGRESS NOTE Patient seen and examined at bedside. Offers no new complaints. Family History: Unchanged from Admission Social History: Unchanged from Admission Past Medical History: Unchanged from Admission Objective Active Medications: Acetaminophen (Tylenol Tab*) 650 mg PO Q4H PRN PRN Reason: FEVER/HEADACHE Last Admin: 09/23/16 20:20 Dose: 650 mg Cholecalciferol (Vitamin D Tab*) 1,000 units PO DAILY [facility] Last Admin: 09/28/16 07:13 Dose: 1,000 units Heparin Sodium (Porcine) (Heparin Flush Picc/Ml/Cvc(*)) 1 ml FLUSH 0600,1800 [facility] PRN Reason: Protocol Last Admin: 09/28/16 07:49 Dose: 1 ml Hydromorphone HCl (Dilaudid Iv*) 1 mg IV SLOW PU Q4H PRN PRN Reason: PAIN Last Admin: 09/28/16 13:55 Dose: 1 mg Ceftriaxone Sodium 1,000 mg/ (Sodium Chloride) 50 mls @ 200 mls/hr IVPB Q24H ANSHU Last Admin: 09/28/16 07:12 Dose: 200 mls/hr Melatonin (Melatonin (Nf)) 3 mg PO BEDTIME [facility] Last Admin: 09/28/16 00:11 Dose: 3 mg Ondansetron HCl (Zofran Inj*) 4 mg IV Q6H PRN PRN Reason: NAUSEA Oxycodone HCl (Roxycodone Tab*) 5 mg PO Q4H PRN PRN Reason: PAIN Last Admin: 09/28/16 15:33 Dose: 5 mg Tamsulosin HCl (Flomax Cap*) 0.4 mg PO QPM [facility] Last Admin: 09/27/16 16:59 Dose: 0.4 mg Vital Signs 09/28/16 09/28/16 09/28/16 08:00 08:13 13:39 Temperature 98.0 F Pulse Rate 72 Respiratory 18 14 16 Rate Blood Pressure 133/66 (mmHg) O2 Sat by Pulse 97 98 Oximetry Oxygen Devices in Use Now: Nasal Cannula - at 2 l Appearance: Pleasant gentleman sitting up in bed in NAD. Eyes: No Scleral Icterus Ears/Nose/Mouth/Throat: Mucous Membranes Moist Neck: Trachea Midline Respiratory: Symmetrical Chest Expansion and Respiratory Effort, - - BS+ bilaterally, decreased in right base Cardiovascular: RRR - Normal S1 and S2 Abdominal: NL Sounds; No Tenderness; No Distention Extremities: No Edema Neurological: Alert and Oriented x 3, NL Muscle Strength and Tone Lines/Tubes/Other Access: Clean, Dry and Intact PICC Line Nutrition: - - NPO Result Diagrams: 09/27/16 06:20 09/27/16 06:20 Assess/Plan/Problems-Billing Assessment: Mr Mcdonnell is a 66 yo M who has a h/o OA, nephrolithiasis and history of lyme disease who presented to the ER wtih c/o severe R sided chest pain in the setting of recently identified RLL lung masses. He was admitted for further management and evaluation of the lung mass and possible post obstructive pneumonia. - Patient Problems (1) RLL pneumonia Comment: - Pleural fluid (empyema) culture is growing Streptococcus constellatus , sensitivity pending. - Continue Ceftriaxone, Vancomycin. - Differential includes Histoplasmosis, Cryptococcosis - HIV, coccidioides, cryptococcus are negative. - AFB x3 negative. - Biopsy was negative for malignancy. - S/p chest tube placement 09/22/[address] Chaudhary. - S/p pigtail placement to anterior collection by Dr. Kenyon 09/28/16. - Plan to use fibrinolytics through pigtail, keep chest tube for any further drainage. When drainage stops, will repeat imaging to decide if tubes still needed or VATS indicated. After fluid collections resolved, will need at least 4 more weeks of IV antibiotics as per discussion with Dr. Perez. (2) BPH (benign prostatic hyperplasia) Comment: - Continue Flomax. (3) DVT prophylaxis Comment: - Resume SQ heparin. (4) Full code status Status and Disposition: Inpatient.
[2016-09-28] MEDS: Tamsulosin CAP* 0.4 MG PO SCH (18:21)
[2016-09-29] MEDS: HYDROmorphone INJ* 1 MG/ML CARPUJECT SYRINGE IV SLOW PU PRN ×4 (02:56→19:15)
[2016-09-29] MEDS: Cholecalciferol TAB* 1000 UNITS PO SCH (07:52)
[2016-09-29] MEDS: cefTRIAXone VIAL(*) 1,000 MG in NS 0.9% 50 ML* 50 ML IVPB SCH (07:52)
[2016-09-29 08:47] LABS: Hematocrit 32 % (42-52); Hemoglobin 10.6 g/dl (14.0-18.0); Mean Corpuscular HGB Conc 33 g/dl (31-36); Mean Corpuscular Hemoglobin 31 pg (27-31); Mean Corpuscular Volume 92 fL (80-94); Mean Platelet Volume 8 um3 (7.4-10.4); Red Blood Count 3.48 10^6/ul (4.0-5.4); Red Cell Distribution Width 14 % (10.5-15); White Blood Count 14.1 10^3/ul (3.5-10.8)
[2016-09-29 09:05] LABS: Albumin 2.9 g/dL (3.2-5.2); BUN/Creatinine Ratio 12.9 (8-20); C Reactive Protein 165.29 mg/L (< 5.00); Calcium 8.7 mg/dL (8.6-10.3); EGFR African American 94.5 (>60); EGFR Non-African American 73.5 (>60); Globulin 3.7 g/dL (2-4); Potassium 4.3 mmol/L (3.5-5.0); Total Bilirubin 0.5 mg/dL (0.2-1.0); Total Protein 6.6 g/dL (6.4-8.9)
--- NOTE | 2016-09-29 11:45 | PN ---
Progress Note - Progress Note Note: Pulm consult f/u note 09/29/16. Pt seen and examined at bedside. Pt had pleural drain placed yesterday, having pain near site. Active Medications Generic Name Dose Route Start Last Admin Trade Name Briana PRN Reason Stop Dose Admin Acetaminophen 650 mg 09/19/16 06:17 09/23/16 20:20 Tylenol Tab* PO 650 mg Q4H PRN Administration FEVER/HEADACHE Cholecalciferol 1,000 units 09/19/16 09:00 09/29/16 07:52 Vitamin D Tab* PO 1,000 units DAILY ANSHU Administration Heparin Sodium (Porcine) 1 ml 09/23/16 18:00 09/29/16 09:47 Heparin Flush Picc/Ml/Cvc(*) FLUSH 1 ml 0600,1800 ANSHU Administration Protocol Hydromorphone HCl 1 mg 09/24/16 14:38 09/29/16 07:50 Dilaudid Iv* IV SLOW PU 1 mg Q4H PRN Administration PAIN Ceftriaxone Sodium 1,000 mg/ 50 mls @ 200 mls/hr 09/20/16 07:30 09/29/16 07: 52 Sodium Chloride IVPB 200 mls/hr Q24H ANSHU Administration Melatonin 3 mg 09/23/16 21:00 09/28/16 20:45 Melatonin (Nf) PO 3 mg BEDTIME ANSHU Administration Ondansetron HCl 4 mg 09/22/16 11:08 Zofran Inj* IV Q6H PRN NAUSEA Oxycodone HCl 5 mg 09/24/16 14:38 09/28/16 15:33 Roxycodone Tab* PO 5 mg Q4H PRN Administration PAIN Tamsulosin HCl 0.4 mg 09/21/16 18:00 09/28/16 18:21 Flomax Cap* PO 0.4 mg QPM ANSHU Administration Vital Signs Temp Pulse Resp BP Pulse Ox 98.3 F 69 17 114/61 97 09/29/16 08:19 09/29/16 08:19 09/29/16 08:50 09/29/16 08:19 09/29/16 08:19 OE: Pt in NAD, alert, awake, oriented x3 HEENT: PERRLA, No JVD Lungs: Diminished a/e at bases R>L CVS: s1, S2+ Abd: Soft, BS+ Ext: Normal ROM Neuro: No focal defecits Skin: No rash Laboratory Results - last 24 hr 09/25/16 09/29/16 09/29/16 06:30 08:10 08:10 WBC 14.1 H RBC 3.48 L Hgb 10.6 L Hct 32 L MCV 92 MCH 31 MCHC 33 RDW 14 Plt Count 415 MPV 8 Neut % (Auto) 85.8 H Lymph % (Auto) 6.4 L [place] % (Auto) 6.7 Eos % (Auto) 0.8 Baso % (Auto) 0.3 Absolute Neuts (auto) 12.1 H Absolute Lymphs (auto) 0.9 L Absolute Monos (auto) 0.9 H Absolute Eos (auto) 0.1 Absolute Basos (auto) 0 Absolute Nucleated RBC 0.01 Nucleated RBC % 0.1 Sodium 131 L Potassium 4.3 Chloride 95 L Carbon Dioxide 29 Anion Gap 7 BUN 13 Creatinine 1.01 Est GFR ( Amer) 94.5 Est GFR (Non-Af Amer) 73.5 BUN/Creatinine Ratio 12.9 Glucose 126 H Calcium 8.7 Total Bilirubin 0.50 AST 43 H ALT 81 H Alkaline Phosphatase 76 C-Reactive Protein 165.29 H Total Protein 6.6 Albumin 2.9 L Globulin 3.7 Albumin/Globulin Ratio 0.8 L TB Test (QFT) Nil 0.03 TB Test Mitogen - Nil 9.18 TB Test Antigen - Nil -0.01 TB Test (QFT) Negative Laboratory Results - last 24 hr 09/21/16 09/22/16 12:40 06:10 Fluid Source Pleural fluid Fluid pH 6.4 TB Test (QFT) Nil TNP TB Test Mitogen - Nil TNP TB Test Antigen - Nil TNP TB Test (QFT) TNP I/R: Pt is 66 y o m with lung abscess, empysema, multiloculated pleural effusion s/p chest tube placement and is undergoing tPA given loculated effusion Pt completed tPA through chest tube Rpt Ct chest was personally reviewed, no change in loculated ant fluid collection Pt had pig tail inserted today for ant collection, not much could be drained as it was thick and fibrinous Pt to be scheduled for VATS c/w abx
--- NOTE | 2016-09-29 13:10 | CONS ---
FOLLOWUP CONSULTATION REPORT: DATE OF CONSULT: 09/29/16 HISTORY OF PRESENT ILLNESS: Mr. Mcdonnell has undergone 3 days of fibrinolytics with a repeat CT scan that shows persistent collection anteriorly and medially along the mediastinum. Yesterday, he underwent pigtail drainage under interventional radiology which found that the collection was very thick and purulent. The procedure was only able to remove 12 mL out of a collection that I estimated to be 150 mL and the Gram stain on that fluid does show 4+ neutrophils and 3+ gram- positive cocci. Even though he is feeling reasonably well and he remains afebrile, his white blood count has failed [place]. [place] [id number] on presentation, he did come down to 12.5 and now has gone back up to 14. While this may be normal background variation, it does in my mind presents a failure to eradicate the infection and I doubt that long- term antibiotics will get us any closer to eradicate anything they already have. Therefore, I think he needs more complete evacuation of the pleural space and I do not think that additional fibrinolytics are likely to work given how infected this fluid is and I think he needs video thoracoscopy to clean out the infection in the pleural space. I spent quite a bit of time discussing this with him and with his and with Dr. Guajardo (45 minutes). We talked about the pros and cons of proceeding with surgery, the timing of such a surgery, the risks and expected recovery from such a surgery, the likely success of such a surgery and in my estimation the chance of him achieving complete recovery with additional fibrinolytics and avoiding surgery is no more than 5% and at this point the risk of continuing with an undrained infected collection in the chest is becoming greater over time as I think the fibrosis will increase and will become ever more difficult to open up that space. Additionally, continuing with fibrinolytics only gives him more chance of bleeding with in my estimation minimal chance of improving the situation. Therefore, I think he is better served by having video thoracoscopy sooner rather than later and I am happy to do the procedure for him tomorrow and I have discussed that with him and with Dr. Guajardo. They are uncertain as to whether they want to have the surgery here or go to a bigger center and we did review with them that we are capable of performing the procedure here but that if they feel more comfortable going to a bigger center, we could discuss that as well. Therefore, they will talk about and let us know which way they want to go but my best medical advice is that he undergo video thoracoscopy of the right chest to clean out the persisting loculated pockets of infected pleural fluid. CC: Dr. Onel Hayes; Dr. Subha Manuel; Dr. Amrit Daugherty * [id number]/[facility] #: [id number] MTDD
[2016-09-29] MEDS: Tamsulosin CAP* 0.4 MG PO SCH (18:30)
--- NOTE | 2016-09-29 19:11 | PN ---
Subjective Date of Service: 09/29/16 Interval History: . Long conversation with patient along with Dr. Hayes about VATS vs ongoing antibiotic therapy. Pro's and cons presented, but essentially there is very low chance of patient improving without mechanical decortication and evacuation. Family History: Unchanged from Admission Social History: Unchanged from Admission Past Medical History: Unchanged from Admission Objective Active Medications: . Acetaminophen (Tylenol Tab*) 650 mg PO Q4H PRN PRN Reason: FEVER/HEADACHE Last Admin: 09/23/16 20:20 Dose: 650 mg Cholecalciferol (Vitamin D Tab*) 1,000 units PO DAILY [facility] Last Admin: 09/29/16 07:52 Dose: 1,000 units Heparin Sodium (Porcine) (Heparin Flush Picc/Ml/Cvc(*)) 1 ml FLUSH 0600,1800 ANSHU PRN Reason: Protocol Last Admin: 09/29/16 18:31 Dose: Not Given Heparin Sodium (Porcine) (Heparin Vial(*)) 5,000 units SUBCUT Q8HR [facility] Hydromorphone HCl (Dilaudid Iv*) 1 mg IV SLOW PU Q4H PRN PRN Reason: PAIN Last Admin: 09/29/16 13:43 Dose: 1 mg Ceftriaxone Sodium 1,000 mg/ (Sodium Chloride) 50 mls @ 200 mls/hr IVPB Q24H ANSHU Last Admin: 09/29/16 07:52 Dose: 200 mls/hr Melatonin (Melatonin (Nf)) 3 mg PO BEDTIME [facility] Last Admin: 09/28/16 20:45 Dose: 3 mg Ondansetron HCl (Zofran Inj*) 4 mg IV Q6H PRN PRN Reason: NAUSEA Oxycodone HCl (Roxycodone Tab*) 5 mg PO Q4H PRN PRN Reason: PAIN Last Admin: 09/28/16 15:33 Dose: 5 mg Tamsulosin HCl (Flomax Cap*) 0.4 mg PO QPM [facility] Last Admin: 09/29/16 18:30 Dose: 0.4 mg . Vital Signs 09/28/16 09/28/16 09/28/16 20:00 20:30 20:31 Temperature Pulse Rate Respiratory 18 20 3 Rate Blood Pressure (mmHg) O2 Sat by Pulse Oximetry 09/28/16 09/29/16 09/29/16 21:31 00:28 02:56 Temperature 98.1 F Pulse Rate 69 Respiratory 20 20 Rate Blood Pressure 126/62 (mmHg) O2 Sat by Pulse 93 Oximetry Oxygen Devices in Use Now: Nasal Cannula - at 2 l Appearance: NAD; healthy appearing. Eyes: No Scleral Icterus Ears/Nose/Mouth/Throat: Clear Oropharnyx Neck: Trachea Midline Respiratory: Symmetrical Chest Expansion and Respiratory Effort, - - R chest tube and anterior pigtail catheter present. Abdominal: NL Sounds; No Tenderness; No Distention Lymphatic: No Cervical Adenopathy Extremities: No Edema Skin: No Rash or Ulcers Neurological: Alert and Oriented x 3, NL Sensation, NL Gait, NL Muscle Strength and Tone Lines/Tubes/Other Access: Clean, Dry and Intact Chest Tube, Clean, Dry and Intact Peripheral IV, Clean, Dry and Intact Other Access - R anterior chest tube Nutrition: Taking PO's Result Diagrams: 09/30/16 22:19 09/30/16 22:19 Additional Lab and Data: . Microbiology and Other Data: Microbiology 09/20/16 16:20 Gram Stain - Final Misc Fluid (See Comment) - Aspirate Body Fluid Culture - Preliminary No Growth Day 1 09/20/16 16:20 Acid Fast Bacilli Smear - Final Respiratory - Aspirate 09/20/16 09:39 Acid Fast Bacilli Smear - Final Respiratory 09/20/16 11:00 Legionella Urinary Antigen - Final Urine Negative Legionella Streptococcus pneumoniae Ag Screen - Final Negative S. pneumo Antigen 09/20/16 09:30 Gram Stain - Final Sputum Expectorated Assess/Plan/Problems-Billing Assessment: Mr Mcdonnell is a 66 yo M who has a h/o OA, nephrolithiasis and history of lyme disease who presented to the ER wtih c/o severe R sided chest pain in the setting of recently identified RLL lung masses. He was admitted for further management and evaluation of the lung mass and possible post obstructive pneumonia. later diagnosed with lung abscess, empyema, multiloculated pleural effusion s/p chest tube placement and is undergoing tPA given loculated effusion. Pt was completed tPA through chest tube. Repeat Chest CT showed no change in loculated anterior fluid collection. Pt had pig tail inserted for anterior collection, but , unfortunately, not much was drained as it was thick and fibrinous. Now decision for VATS with ongoing antibiotics. Current Medications: - Acetaminophen (Tylenol Tab) 650 mg PO Q4H PRN FEVER/HEADACHE - Cholecalciferol (Vitamin D Tab) 1,000 units PO DAILY ANSHU - Heparin Sodium (Porcine) (Heparin Flush Picc/Ml/Cvc) 1 ml FLUSH 0600,1800 ANSHU - Heparin 5,000 units SUBCUT Q8HR - Hydromorphone HCl (Dilaudid Iv) 1 mg IV SLOW PU Q4H PRN PAIN - Ceftriaxone Sodium 1,000 mg/ (Sodium Chloride) IVPB Q24H ANSHU - Melatonin 3 mg PO BEDTIME ANSHU - Ondansetron HCl (Zofran Inj) 4 mg IV Q6H PRN NAUSEA - Oxycodone HCl (Roxycodone Tab) 5 mg PO Q4H PRN PAIN - Tamsulosin HCl (Flomax Cap) 0.4 mg PO QPM ANSHU - Patient Problems (1) RLL pneumonia Current Visit: Yes Status: Acute Code(s): J18.1 - LOBAR PNEUMONIA, UNSPECIFIED ORGANISM SNOMED Code(s): 453487367 Comment: - Pleural fluid (empyema) culture is growing Streptococcus constellatus, sensitivity pending. - Continue Ceftriaxone, Vancomycin. - Differential includes Histoplasmosis, Cryptococcosis - HIV, coccidioides, cryptococcus are negative. - AFB x 3 negative. - Biopsy was negative for malignancy. - S/p chest tube placement 09/22/[address] Chaudhary. - S/p pigtail placement to anterior collection by Dr. Kenyon 09/28/16. - Plan for VATS 09/30/2016 - Will need at least 4 more weeks of IV antibiotics as per discussion with Dr. Perez. (2) DVT prophylaxis Current Visit: Yes Status: Acute Priority: High Code(s): NVD5698 - Comment: - Resume SQ heparin. (3) BPH (benign prostatic hyperplasia) Current Visit: Yes Status: Acute Priority: High Code(s): N40.0 - BENIGN PROSTATIC HYPERPLASIA WITHOUT LOWER URINRY TRACT SYMP Comment: - Continue Flomax. (4) Full code status Current Visit: Yes Status: Acute Priority: High Code(s): Z78.9 - OTHER SPECIFIED HEALTH STATUS (5) Pre-op evaluation Current Visit: Yes Status: Acute Priority: High Code(s): Z01.818 - ENCOUNTER FOR OTHER PREPROCEDURAL EXAMINATION Comment: - Currently optimized for surgery; no need for further cardiovascular evaluation. - No SOB, CERVANTES or CP reported before current episode; patient is in good condition with no cardiovascular sympotmology reported after questioning. Status and Disposition: Inpatient.
[2016-09-30] MEDS: Heparin VIAL(*) 5000 UNITS/ML VIAL (FIVE THOUSAND) SUBCUT SCH ×4 (00:09→22:20)
[2016-09-30] MEDS: HYDROmorphone INJ* 1 MG/ML CARPUJECT SYRINGE IV SLOW PU PRN ×4 (00:17→21:06)
[2016-09-30] MEDS: CMCS: Melatonin (NF) 3 MG TAB PO SCH ×2 (00:26→21:09)
[2016-09-30 06:05] LABS: Hematocrit 31 % (42-52); Hemoglobin 10.2 g/dl (14.0-18.0); Mean Corpuscular HGB Conc 33 g/dl (31-36); Mean Corpuscular Hemoglobin 30 pg (27-31); Mean Corpuscular Volume 92 fL (80-94); Mean Platelet Volume 8 um3 (7.4-10.4); Red Blood Count 3.41 10^6/ul (4.0-5.4); Red Cell Distribution Width 14 % (10.5-15); White Blood Count 12.6 10^3/ul (3.5-10.8)
[2016-09-30 06:20] LABS: BUN/Creatinine Ratio 16.7 (8-20); Calcium 8.5 mg/dL (8.6-10.3); EGFR African American 93.4 (>60); EGFR Non-African American 72.6 (>60); Potassium 4.3 mmol/L (3.5-5.0)
[2016-09-30] MEDS: cefTRIAXone VIAL(*) 1,000 MG in NS 0.9% 50 ML* 50 ML IVPB SCH (07:51)
[2016-09-30] MEDS: Cholecalciferol TAB* 1000 UNITS PO SCH (08:40)
--- NOTE | 2016-09-30 12:11 | PN ---
Progress Note - Progress Note Note: Pulm consult f/u note 09/30/16. Pt seen and examined at bedside. Pt reports pain near ant drain site. Also reports fatigue. Scheduled for VATS today Active Medications Generic Name Dose Route Start Last Admin Trade Name Freq PRN Reason Stop Dose Admin Acetaminophen 650 mg 09/19/16 06:17 09/23/16 20:20 Tylenol Tab* PO 650 mg Q4H PRN Administration FEVER/HEADACHE Cholecalciferol 1,000 units 09/19/16 09:00 09/30/16 08:40 Vitamin D Tab* PO Not Given DAILY ANSHU Heparin Sodium (Porcine) 1 ml 09/23/16 18:00 09/30/16 08:52 Heparin Flush Picc/Ml/Cvc(*) FLUSH 1 ml 0600,1800 ANSHU Administration Protocol Heparin Sodium (Porcine) 5,000 units 09/29/16 22:00 09/30/16 05:59 Heparin Vial(*) SUBCUT Not Given Q8HR ANSHU Hydromorphone HCl 1 mg 09/24/16 14:38 09/30/16 10:59 Dilaudid Iv* IV SLOW PU 1 mg Q4H PRN Administration PAIN Ceftriaxone Sodium 1,000 mg/ 50 mls @ 200 mls/hr 09/20/16 07:30 09/30/16 07: 51 Sodium Chloride IVPB 200 mls/hr Q24H ANSHU Administration Melatonin 3 mg 09/23/16 21:00 09/30/16 00:26 Melatonin (Nf) PO 3 mg BEDTIME ANSHU Administration Ondansetron HCl 4 mg 09/22/16 11:08 Zofran Inj* IV Q6H PRN NAUSEA Oxycodone HCl 5 mg 09/24/16 14:38 09/28/16 15:33 Roxycodone Tab* PO 5 mg Q4H PRN Administration PAIN Tamsulosin HCl 0.4 mg 09/21/16 18:00 09/29/16 18:30 Flomax Cap* PO 0.4 mg QPM ANSHU Administration Vital Signs Temp Pulse Resp BP Pulse Ox 97.4 F 72 22 126/56 94 09/30/16 10:23 09/30/16 10:23 09/30/16 10:59 09/30/16 10:23 09/30/16 10:23 OE: Pt in NAD, alert, awake, oriented x3 HEENT: PERRLA, No JVD Lungs: Diminished a/e at bases R>L CVS: s1, S2+ Abd: Soft, BS+ Ext: Normal ROM Neuro: No focal defecits Skin: No rash Laboratory Results - last 24 hr 09/22/16 09/30/16 09/30/16 11:00 05:50 05:50 WBC 12.6 H RBC 3.41 L Hgb 10.2 L Hct 31 L MCV 92 MCH 30 MCHC 33 RDW 14 Plt Count 398 MPV 8 Neut % (Auto) 83.4 H Lymph % (Auto) 7.0 L Mchenry % (Auto) 7.5 Eos % (Auto) 1.4 Baso % (Auto) 0.7 Absolute Neuts (auto) 10.5 H Absolute Lymphs (auto) 0.9 L Absolute Monos (auto) 0.9 H Absolute Eos (auto) 0.2 Absolute Basos (auto) 0.1 Absolute Nucleated RBC 0 Nucleated RBC % 0 Sodium 131 L Potassium 4.3 Chloride 98 L Carbon Dioxide 28 Anion Gap 5 BUN 17 Creatinine 1.02 Est GFR ( Amer) 93.4 Est GFR (Non-Af Amer) 72.6 BUN/Creatinine Ratio 16.7 Glucose 135 H Calcium 8.5 L Urine Histoplasma Ag None detected U Histoplasma Ag Index Not Reportable I/R: Pt is 66 y o m with lung abscess, empysema, multiloculated pleural effusion s/p chest tube placement and is undergoing tPA given loculated effusion Pt completed tPA through chest tube Rpt Ct chest, no change in loculated ant fluid collection Pt had pig tail inserted , not much could be drained as it was thick and fibrinous Pt scheduled for VATS today for mechanical decortication c/w abx
[2016-09-30] MEDS ORDERED: Bupivacaine 0.25% EPI 200,000* 30 ML SDV ONE (14:28)
[2016-09-30] MEDS ORDERED: HYDROmorphone INJ* 1 MG/ML CARPUJECT SYRINGE IV PRN (18:10)
[2016-09-30] MEDS ORDERED: fentaNYL* 50 MCG/ML 2 ML VIAL (100 MCG VIAL) IV PRN (18:10)
[2016-09-30] MEDS ORDERED: Metoclopramide IV* 5 MG/ML 2 ML VIAL IV PRN (18:10)
[2016-09-30] MEDS ORDERED: HYDROmorphone INJ* 1 MG/ML CARPUJECT SYRINGE ONE (19:08)
--- NOTE | 2016-09-30 19:35 | RAD ---
INDICATION: Pleural effusion, right chest tube. COMPARISON: Comparison is made with a prior chest x-ray study from September 23, 2016. Correlation is also made with a prior CT of the chest from September 26, 2016. TECHNIQUE: A portable view of the chest was obtained. FINDINGS: The heart is within normal limits in size. There is a PICC present on the right side which appears to be coiled in the axillary region. There is an infiltrate present at the right lung base which is unchanged. There is a chest tube present on the right side which extends medially toward the right lung apex. The loculated medial pleural effusion appears decreased in size. The left lung is clear. IMPRESSION: 1. PICC LINE COILED IN THE RIGHT AXILLARY REGION, RECOMMEND REPOSITIONING. 2. RIGHT BASILAR INFILTRATE, UNCHANGED. 3. LOCULATED MEDIAL RIGHT PLEURAL EFFUSION DECREASED IN SIZE, CHEST TUBE IN PLACE.
[2016-09-30 19:54] LABS: Hematocrit 31 % (42-52); Hemoglobin 10.2 g/dl (14.0-18.0); Mean Corpuscular HGB Conc 33 g/dl (31-36); Mean Corpuscular Hemoglobin 30 pg (27-31); Mean Corpuscular Volume 93 fL (80-94); Mean Platelet Volume 8 um3 (7.4-10.4); Red Blood Count 3.38 10^6/ul (4.0-5.4); Red Cell Distribution Width 14 % (10.5-15); White Blood Count 19.9 10^3/ul (3.5-10.8)
[2016-09-30 20:10] LABS: Calcium 8.4 mg/dL (8.6-10.3); EGFR African American 95.6 (>60); EGFR Non-African American 74.3 (>60); Potassium 4.3 mmol/L (3.5-5.0)
[2016-09-30] MEDS: Tamsulosin CAP* 0.4 MG PO SCH (20:53)
[2016-09-30 22:24] LABS: Hematocrit 31 % (42-52); Hemoglobin 10.3 g/dl (14.0-18.0); Mean Corpuscular HGB Conc 33 g/dl (31-36); Mean Corpuscular Hemoglobin 30 pg (27-31); Mean Corpuscular Volume 92 fL (80-94); Mean Platelet Volume 8 um3 (7.4-10.4); Red Cell Distribution Width 14 % (10.5-15); White Blood Count 19.3 10^3/ul (3.5-10.8)
[2016-09-30 22:40] LABS: BUN/Creatinine Ratio 16.3 (8-20); Calcium 8.3 mg/dL (8.6-10.3); EGFR African American 97.8 (>60); EGFR Non-African American 76.1 (>60); Potassium 4.6 mmol/L (3.5-5.0)
[2016-09-30] MEDS ORDERED: Alteplase (CATHFLO)* 2 MG VIAL IV ONE (23:12)
[2016-10-01] MEDS: HYDROmorphone INJ* 1 MG/ML CARPUJECT SYRINGE IV SLOW PU PRN ×3 (01:07→10:43)
[2016-10-01] MEDS: Heparin VIAL(*) 5000 UNITS/ML VIAL (FIVE THOUSAND) SUBCUT SCH ×3 (05:20→21:30)
[2016-10-01] MEDS ORDERED: NS 0.9% 50 ML* 0 ML ONE (07:37)
[2016-10-01] MEDS: oxyCODONE TAB* 5 MG TAB PO PRN ×4 (07:59→21:29)
[2016-10-01] MEDS: Cholecalciferol TAB* 1000 UNITS PO SCH (07:59)
[2016-10-01] MEDS: Acetaminophen TAB* 325 MG PO PRN (07:59)
[2016-10-01] MEDS: cefTRIAXone VIAL(*) 1,000 MG in NS 0.9% 50 ML* 50 ML IVPB SCH ×2 (08:27→14:29)
--- NOTE | 2016-10-01 10:34 | OP ---
DATE OF OPERATION: 09/30/16 - ROOM #ICU-11 DATE OF : 46 SURGEON: Onel Hayes MD TANKER DRIVER: None. ANESTHESIOLOGIST: Renetta Lizama MD ANESTHESIA: General anesthesia, local infiltration. PRE-OP DIAGNOSIS: Right empyema. POST-OP DIAGNOSIS: Right empyema. OPERATIVE PROCEDURE: Right video thoracoscopy with evacuation of empyema and partial pleural decortication. DESCRIPTION OF PROCEDURE: The patient was supine on the operating room table. After adequate general anesthetic, compression stockings, Pedro Hugger warmer, and double lumen intubation was carried out; the patient was turned to the lateral decubitus position; and axillary roll with appropriate padding and positioning were utilized as well as he is secured to the table appropriately. The previous chest tubes were removed. The right chest was prepped with Betadine and draped in a sterile fashion. Local infiltrative anesthesia was administered. The chest tube site is enlarged and digital palpation was used to expand the space somewhat until an additional 5 mm cannula can be placed posteriorly. Additional dissection was carried out until an additional cannula can then be placed more superior to this and along the posterior aspect and down at the base, where a lot of gelatinous and fibrous debris that was plucked out. At the site of the medial collection was, a gelatinous collection and this was identified and cleaned out. Anteriorly at the site of the previous tube, this was more of a cheesy collection and again this was dissected free and cleaned out. The operative field was well irrigated. A 36- Cymraes chest tube was placed through the same site, sutured to the skin with 2-0 Prolene. The 2 small incisions were closed with 4-0 Vicryl followed by Steri- Strips. A gauze dressing was placed at the chest tube site. He tolerated the procedure well, was brought to Recovery in stable condition. There were no complications. Drain is 36-Cymraes chest tube. Sponge and instrument counts correct. Specimens are right empyema for culture and for pathology. Estimated blood loss was 150 to 200 mL. CC: Leroy Harris MD; Isaac Wang MD; Subha Manuel MD; Amrit Daugherty MD * [id number]/[facility] #: [id number] [facility]
--- NOTE | 2016-10-01 10:44 | RAD ---
INDICATION: Postoperative COMPARISON: September 30, 2016 TECHNIQUE: PA and lateral dual-energy views were obtained. FINDINGS: Bones/Soft Tissues: There are no acute bony findings. There is a right-sided chest tube projecting over the right lung apex. The right-sided PICC catheter remains kinked and coiled back on itself with the tip in the axillary vein. The catheter should be removed or repositioned. Cardiomediastinal: The cardiomediastinal silhouette is normal. Lungs: Chronic pleural and parenchymal changes right hemithorax with volume loss. Minimal atelectasis left lung base. Pleura: As above. Other: None IMPRESSION: POSTOPERATIVE CHANGES RIGHT CHEST WITHOUT SIGNIFICANT CHANGE NO PNEUMOTHORAX . THE PICC CATHETER REMAINS KINKED.
--- NOTE | 2016-10-01 11:23 | PN ---
Progress Note - Progress Note Note: Pulm consult f/u note 10/01/16. Pt seen and examined at bedside. Pt reports feeling much better this morning after VATS yesterday. Pain is minimal. Active Medications Generic Name Dose Route Start Last Admin Trade Name Freq PRN Reason Stop Dose Admin Acetaminophen 650 mg 09/19/16 06:17 10/01/16 07:59 Tylenol Tab* PO 650 mg Q4H PRN Administration FEVER/HEADACHE Cholecalciferol 1,000 units 09/19/16 09:00 10/01/16 07:59 Vitamin D Tab* PO 1,000 units DAILY ANSHU Administration Heparin Sodium (Porcine) 1 ml 09/23/16 18:00 10/01/16 10:44 Heparin Flush Picc/Ml/Cvc(*) FLUSH 1 ml 0600,1800 ANSHU Administration Protocol Heparin Sodium (Porcine) 5,000 units 09/29/16 22:00 10/01/16 05:20 Heparin Vial(*) SUBCUT 5,000 units Q8HR ANSHU Administration Hydromorphone HCl 1 mg 09/24/16 14:38 10/01/16 10:43 Dilaudid Iv* IV SLOW PU 1 mg Q4H PRN Administration PAIN Ceftriaxone Sodium 1,000 mg/ 50 mls @ 200 mls/hr 10/01/16 08:00 10/01/16 08: 27 Sodium Chloride IVPB 200 mls/hr Q24HR@0800 ANSHU Administration Melatonin 3 mg 09/23/16 21:00 09/30/16 21:09 Melatonin (Nf) PO Not Given BEDTIME ANSHU Ondansetron HCl 4 mg 09/22/16 11:08 Zofran Inj* IV Q6H PRN NAUSEA Oxycodone HCl 5 mg 09/24/16 14:38 10/01/16 07:59 Roxycodone Tab* PO 5 mg Q4H PRN Administration PAIN Oxycodone HCl 10 mg 10/01/16 10:57 Roxycodone Tab* PO Q4H PRN PAIN Tamsulosin HCl 0.4 mg 09/21/16 18:00 09/30/16 20:53 Flomax Cap* PO Not Given QPM [facility] Vital Signs Temp Pulse Resp BP Pulse Ox 98.0 F 85 22 116/56 93 10/01/16 08:00 10/01/16 09:21 10/01/16 10:48 10/01/16 09:44 10/01/16 09:21 OE: Pt in NAD, alert, awake, oriented x3 HEENT: PERRLA, No JVD Lungs: Diminished a/e at bases R>L, chest tube in place, draining serosanguinous fluid CVS: s1, S2+ Abd: Soft, BS+ Ext: Normal ROM Neuro: No focal defecits Skin: No rash Laboratory Results - last 24 hr 09/30/16 09/30/16 09/30/16 19:39 19:39 22:19 WBC 19.9 H RBC 3.38 L Hgb 10.2 L Hct 31 L MCV 93 MCH 30 MCHC 33 RDW 14 Plt Count 437 MPV 8 Sodium 132 L 132 L Potassium 4.3 4.6 Chloride 97 L 98 L Carbon Dioxide 29 26 Anion Gap 6 8 BUN 17 16 Creatinine 1.00 0.98 Est GFR ( Amer) 95.6 97.8 Est GFR (Non-Af Amer) 74.3 76.1 BUN/Creatinine Ratio 17.0 16.3 Glucose 169 H 161 H Calcium 8.4 L 8.3 L Magnesium 2.0 2.0 09/30/16 22:19 WBC 19.3 H RBC 3.40 L Hgb 10.3 L Hct 31 L MCV 92 MCH 30 MCHC 33 RDW 14 Plt Count 436 MPV 8 Sodium Potassium Chloride Carbon Dioxide Anion Gap BUN Creatinine Est GFR ( Amer) Est GFR (Non-Af Amer) BUN/Creatinine Ratio Glucose Calcium Magnesium I/R: Pt is 66 y o m with lung abscess, empysema, multiloculated pleural effusion s/p chest tube placement and is undergoing tPA given loculated effusion Pt completed tPA through chest tube Rpt Ct chest, no change in loculated ant fluid collection Pt had pig tail inserted , not much could be drained as it was thick and fibrinous Pt had VATS yesterday, underwent mechanical decortication, cheezy and thick fibrinous stuff was removed No PTX was noted c/w abx
[2016-10-01] MEDS: Tamsulosin CAP* 0.4 MG PO SCH (17:20)
--- NOTE | 2016-10-01 21:26 | PN ---
Subjective Date of Service: 09/30/16 Interval History: . saw brefore surgery. feels well. present. Family History: Unchanged from Admission Social History: Unchanged from Admission Past Medical History: Unchanged from Admission Objective Active Medications: . Acetaminophen (Tylenol Tab*) 650 mg PO Q4H PRN PRN Reason: FEVER/HEADACHE Last Admin: 10/01/16 07:59 Dose: 650 mg Cholecalciferol (Vitamin D Tab*) 1,000 units PO DAILY [facility] Last Admin: 10/01/16 07:59 Dose: 1,000 units Heparin Sodium (Porcine) (Heparin Flush Picc/Ml/Cvc(*)) 1 ml FLUSH 0600,1800 [facility] PRN Reason: Protocol Last Admin: 10/01/16 17:21 Dose: 1 ml Heparin Sodium (Porcine) (Heparin Vial(*)) 5,000 units SUBCUT Q8HR [facility] Last Admin: 10/01/16 14:15 Dose: 5,000 units Hydromorphone HCl (Dilaudid Iv*) 1 mg IV SLOW PU Q4H PRN PRN Reason: PAIN Last Admin: 10/01/16 10:43 Dose: 1 mg Ceftriaxone Sodium 1,000 mg/ (Sodium Chloride) 50 mls @ 200 mls/hr IVPB Q24HR@ 0800 [facility] Last Admin: 10/01/16 08:27 Dose: 200 mls/hr Melatonin (Melatonin (Nf)) 3 mg PO BEDTIME [facility] Last Admin: 09/30/16 21:09 Dose: Not Given Ondansetron HCl (Zofran Inj*) 4 mg IV Q6H PRN PRN Reason: NAUSEA Oxycodone HCl (Roxycodone Tab*) 5 mg PO Q4H PRN PRN Reason: PAIN Last Admin: 10/01/16 07:59 Dose: 5 mg Oxycodone HCl (Roxycodone Tab*) 10 mg PO Q4H PRN PRN Reason: PAIN Last Admin: 10/01/16 17:20 Dose: 10 mg Tamsulosin HCl (Flomax Cap*) 0.4 mg PO QPM [facility] Last Admin: 10/01/16 17:20 Dose: 0.4 mg Vital Signs 09/30/16 09/30/16 09/30/16 21:15 21:30 21:45 Temperature Pulse Rate 81 73 49 Respiratory 21 20 21 Rate Blood Pressure 100/52 117/61 113/64 (mmHg) O2 Sat by Pulse 96 97 97 Oximetry 09/30/16 09/30/16 09/30/16 22:00 23:00 23:05 Temperature Pulse Rate 77 Respiratory 22 17 26 Rate Blood Pressure 117/64 (mmHg) O2 Sat by Pulse 97 96 96 Oximetry Oxygen Devices in Use Now: Nasal Cannula - at 2 l Appearance: NAD Eyes: No Scleral Icterus Ears/Nose/Mouth/Throat: NL Teeth, Lips, Gums Neck: NL Appearance and Movements; NL JVP Respiratory: Symmetrical Chest Expansion and Respiratory Effort, - - R chest tube with minimal output. R anterior pigtail with min output as well. Cardiovascular: NL Sounds; No Murmurs; No JVD Abdominal: NL Sounds; No Tenderness; No Distention Lymphatic: No Cervical Adenopathy Extremities: No Edema Skin: No Rash or Ulcers Neurological: Alert and Oriented x 3 Lines/Tubes/Other Access: Clean, Dry and Intact Peripheral IV Nutrition: - - NPO for surgery Result Diagrams: 09/30/16 22:19 09/30/16 22:19 Additional Lab and Data: . Microbiology and Other Data: Microbiology 09/20/16 16:20 Gram Stain - Final Misc Fluid (See Comment) - Aspirate Body Fluid Culture - Preliminary No Growth Day 1 09/20/16 16:20 Acid Fast Bacilli Smear - Final Respiratory - Aspirate 09/20/16 09:39 Acid Fast Bacilli Smear - Final Respiratory 09/20/16 11:00 Legionella Urinary Antigen - Final Urine Negative Legionella Streptococcus pneumoniae Ag Screen - Final Negative S. pneumo Antigen 09/20/16 09:30 Gram Stain - Final Sputum Expectorated Assess/Plan/Problems-Billing Assessment: Mr Mcdonnell is a 66 yo M who has a h/o OA, nephrolithiasis and history of lyme disease who presented to the ER wtih c/o severe R sided chest pain in the setting of recently identified RLL lung masses. He was admitted for further management and evaluation of the lung mass and possible post obstructive pneumonia. later diagnosed with lung abscess, empyema, multiloculated pleural effusion s/p chest tube placement and is undergoing tPA given loculated effusion. Pt was completed tPA through chest tube. Repeat Chest CT showed no change in loculated anterior fluid collection. Pt had pig tail inserted for anterior collection, but , unfortunately, not much was drained as it was thick and fibrinous. Now decision for VATS with ongoing antibiotics. Current Medications: - Acetaminophen (Tylenol Tab) 650 mg PO Q4H PRN FEVER/HEADACHE - Cholecalciferol (Vitamin D Tab) 1,000 units PO DAILY ANSHU - Heparin Sodium (Porcine) (Heparin Flush Picc/Ml/Cvc) 1 ml FLUSH 0600,1800 ANSHU - Heparin 5,000 units SUBCUT Q8HR - Hydromorphone HCl (Dilaudid Iv) 1 mg IV SLOW PU Q4H PRN PAIN - Ceftriaxone Sodium 1,000 mg/ (Sodium Chloride) IVPB Q24H ANSHU - Melatonin 3 mg PO BEDTIME ANSHU - Ondansetron HCl (Zofran Inj) 4 mg IV Q6H PRN NAUSEA - Oxycodone HCl (Roxycodone Tab) 5 mg PO Q4H PRN PAIN - Tamsulosin HCl (Flomax Cap) 0.4 mg PO QPM ANSHU - Patient Problems (1) RLL pneumonia Current Visit: Yes Status: Acute Code(s): J18.1 - LOBAR PNEUMONIA, UNSPECIFIED ORGANISM SNOMED Code(s): 008566631 Comment: - Pleural fluid (empyema) culture is growing Streptococcus constellatus, sensitivity pending. - Continue Ceftriaxone, Vancomycin. - Differential includes Histoplasmosis, Cryptococcosis - HIV, coccidioides, cryptococcus are negative. - AFB x 3 negative. - Biopsy was negative for malignancy. - S/p chest tube placement 09/22/[address] Chaudhary. - S/p pigtail placement to anterior collection by Dr. Kenyon 09/28/16. - Plan for VATS 09/30/2016 - Will need at least 4 more weeks of IV antibiotics as per discussion with Dr. Perez. (2) DVT prophylaxis Current Visit: Yes Status: Acute Priority: High Code(s): TTN3637 - Comment: - Resume SQ heparin. (3) BPH (benign prostatic hyperplasia) Current Visit: Yes Status: Acute Priority: High Code(s): N40.0 - BENIGN PROSTATIC HYPERPLASIA WITHOUT LOWER URINRY TRACT SYMP Comment: - Continue Flomax. (4) Full code status Current Visit: Yes Status: Acute Priority: High Code(s): Z78.9 - OTHER SPECIFIED HEALTH STATUS (5) Pre-op evaluation Current Visit: Yes Status: Acute Priority: High Code(s): Z01.818 - ENCOUNTER FOR OTHER PREPROCEDURAL EXAMINATION Comment: - Currently optimized for surgery; no need for further cardiovascular evaluation. - No SOB, CERVANTES or CP reported before current episode; patient is in good condition with no cardiovascular sympotmology reported after questioning. Status and Disposition: Inpatient.
[2016-10-01] MEDS: CMCS: Melatonin (NF) 3 MG TAB PO SCH (21:29)
--- NOTE | 2016-10-01 21:29 | PN ---
Subjective Date of Service: 10/01/16 Interval History: . doing well post op good spirits Family History: Unchanged from Admission Social History: Unchanged from Admission Past Medical History: Unchanged from Admission Objective Active Medications: Acetaminophen (Tylenol Tab*) 650 mg PO Q4H PRN PRN Reason: FEVER/HEADACHE Last Admin: 10/01/16 07:59 Dose: 650 mg Cholecalciferol (Vitamin D Tab*) 1,000 units PO DAILY [facility] Last Admin: 10/01/16 07:59 Dose: 1,000 units Heparin Sodium (Porcine) (Heparin Flush Picc/Ml/Cvc(*)) 1 ml FLUSH 0600,1800 [facility] PRN Reason: Protocol Last Admin: 10/01/16 17:21 Dose: 1 ml Heparin Sodium (Porcine) (Heparin Vial(*)) 5,000 units SUBCUT Q8HR [facility] Last Admin: 10/01/16 14:15 Dose: 5,000 units Hydromorphone HCl (Dilaudid Iv*) 1 mg IV SLOW PU Q4H PRN PRN Reason: PAIN Last Admin: 10/01/16 10:43 Dose: 1 mg Ceftriaxone Sodium 1,000 mg/ (Sodium Chloride) 50 mls @ 200 mls/hr IVPB Q24HR@ 0800 [facility] Last Admin: 10/01/16 08:27 Dose: 200 mls/hr Melatonin (Melatonin (Nf)) 3 mg PO BEDTIME [facility] Last Admin: 09/30/16 21:09 Dose: Not Given Ondansetron HCl (Zofran Inj*) 4 mg IV Q6H PRN PRN Reason: NAUSEA Oxycodone HCl (Roxycodone Tab*) 5 mg PO Q4H PRN PRN Reason: PAIN Last Admin: 10/01/16 07:59 Dose: 5 mg Oxycodone HCl (Roxycodone Tab*) 10 mg PO Q4H PRN PRN Reason: PAIN Last Admin: 10/01/16 17:20 Dose: 10 mg Tamsulosin HCl (Flomax Cap*) 0.4 mg PO QPM [facility] Last Admin: 10/01/16 17:20 Dose: 0.4 mg Vital Signs 09/30/16 09/30/16 09/30/16 21:30 21:45 22:00 Temperature Pulse Rate 73 49 77 Respiratory 20 21 22 Rate Blood Pressure 117/61 113/64 117/64 (mmHg) O2 Sat by Pulse 97 97 97 Oximetry 09/30/16 09/30/16 10/01/16 23:00 23:05 00:00 Temperature 98.0 F Pulse Rate Respiratory 17 26 19 Rate Blood Pressure (mmHg) O2 Sat by Pulse 96 96 96 Oximetry Oxygen Devices in Use Now: Nasal Cannula - at 2 l Appearance: NAD Eyes: No Scleral Icterus Ears/Nose/Mouth/Throat: Clear Oropharnyx Neck: Trachea Midline Respiratory: Clear to Auscultation, - - R chest tube to low suction. Abdominal: NL Sounds; No Tenderness; No Distention Lymphatic: No Cervical Adenopathy Extremities: No Edema Skin: No Rash or Ulcers Neurological: Alert and Oriented x 3 Lines/Tubes/Other Access: Clean, Dry and Intact Peripheral IV Nutrition: Taking PO's Result Diagrams: 10/02/16 05:57 10/02/16 05:57 Additional Lab and Data: . Microbiology and Other Data: Microbiology 09/20/16 16:20 Gram Stain - Final Misc Fluid (See Comment) - Aspirate Body Fluid Culture - Preliminary No Growth Day 1 09/20/16 16:20 Acid Fast Bacilli Smear - Final Respiratory - Aspirate 09/20/16 09:39 Acid Fast Bacilli Smear - Final Respiratory 09/20/16 11:00 Legionella Urinary Antigen - Final Urine Negative Legionella Streptococcus pneumoniae Ag Screen - Final Negative S. pneumo Antigen 09/20/16 09:30 Gram Stain - Final Sputum Expectorated Assess/Plan/Problems-Billing Assessment: Mr Mcdonnell is a 66 yo M who has a h/o OA, nephrolithiasis and history of lyme disease who presented to the ER wt c/o severe R sided chest pain in the setting of recently identified RLL lung masses. He was admitted for further management and evaluation of the lung mass and possible post obstructive pneumonia. later diagnosed with lung abscess, empyema, multiloculated pleural effusion s/p chest tube placement and is undergoing tPA given loculated effusion. Pt was completed tPA through chest tube. Repeat Chest CT showed no change in loculated anterior fluid collection. Pt had pig tail inserted for anterior collection, but , unfortunately, not much was drained as it was thick and fibrinous. VATS on 09/30/16 with good results and no complication. IV Abx ongoing. Current Medications: - Acetaminophen (Tylenol Tab) 650 mg PO Q4H PRN FEVER/HEADACHE - Cholecalciferol (Vitamin D Tab) 1,000 units PO DAILY ANSHU - Heparin Sodium (Porcine) (Heparin Flush Picc/Ml/Cvc) 1 ml FLUSH 0600,1800 ANSHU - Heparin 5,000 units SUBCUT Q8HR - Hydromorphone HCl (Dilaudid Iv) 1 mg IV SLOW PU Q4H PRN PAIN - Ceftriaxone Sodium 1,000 mg/ (Sodium Chloride) IVPB Q24H ANSHU - Melatonin 3 mg PO BEDTIME ANSHU - Ondansetron HCl (Zofran Inj) 4 mg IV Q6H PRN NAUSEA - Oxycodone HCl (Roxycodone Tab) 5 mg PO Q4H PRN PAIN - Tamsulosin HCl (Flomax Cap) 0.4 mg PO QPM ANSHU - Patient Problems (1) RLL pneumonia Current Visit: Yes Status: Acute Code(s): J18.1 - LOBAR PNEUMONIA, UNSPECIFIED ORGANISM SNOMED Code(s): 528269438 Comment: - Pleural fluid (empyema) culture is growing Streptococcus constellatus, [place]- SENSITIVE - Continue Ceftriaxone - Biopsy was negative for malignancy. - S/p chest tube placement 09/22/[address] Chaudhary. - S/p pigtail placement to anterior collection by Dr. Kenyon 09/28/16. - VATS 09/30/2016 with good results - Need to disucss total duration of abx with ID...previous estimate was for medical management before VATS was determined to be necessary. (2) DVT prophylaxis Current Visit: Yes Status: Acute Priority: High Code(s): [id number] - Comment: - SQ heparin. (3) BPH (benign prostatic hyperplasia) Current Visit: Yes Status: Acute Priority: High Code(s): N40.0 - BENIGN PROSTATIC HYPERPLASIA WITHOUT LOWER URINRY TRACT SYMP Comment: - Continue Flomax. (4) Full code status Current Visit: Yes Status: Acute Priority: High Code(s): Z78.9 - OTHER SPECIFIED HEALTH STATUS Status and Disposition: Inpatient.
[2016-10-02] MEDS: oxyCODONE TAB* 5 MG TAB PO PRN ×5 (02:04→22:33)
[2016-10-02] MEDS: Heparin VIAL(*) 5000 UNITS/ML VIAL (FIVE THOUSAND) SUBCUT SCH ×3 (05:58→22:34)
[2016-10-02 06:07] LABS: Hematocrit 28 % (42-52); Hemoglobin 9.5 g/dl (14.0-18.0); Mean Corpuscular HGB Conc 34 g/dl (31-36); Mean Corpuscular Hemoglobin 31 pg (27-31); Mean Corpuscular Volume 92 fL (80-94); Mean Platelet Volume 8 um3 (7.4-10.4); Red Blood Count 3.07 10^6/ul (4.0-5.4); Red Cell Distribution Width 14 % (10.5-15)
[2016-10-02 06:23] LABS: BUN/Creatinine Ratio 14.4 (8-20); Calcium 8.4 mg/dL (8.6-10.3); EGFR African American 84.7 (>60); EGFR Non-African American 65.9 (>60)
[2016-10-02] MEDS: Cholecalciferol TAB* 1000 UNITS PO SCH (08:31)
[2016-10-02] MEDS: cefTRIAXone VIAL(*) 1,000 MG in NS 0.9% 50 ML* 50 ML IVPB SCH (08:31)
--- NOTE | 2016-10-02 11:57 | PN ---
Progress Note - Progress Note SOAP: Subjective: pt seen and examined. Feeling well. Transferred from ICU. Good appetite. no significant pain Objective: AF vss lungs clear at apices b/l chest tube: serous output, 100cc output in approx 24hrs, no air leak Assessment: POD2 R chest decortication Plan: continue chest tube abx will follow
--- NOTE | 2016-10-02 14:26 | PN ---
Progress Note - Progress Note Note: Pulm consult f/u note 10/02/16. Pt seen and examined at bedside. Pt reports feeling better since VATS. Pain is minimal, relieved with meds. Active Medications Generic Name Dose Route Start Last Admin Trade Name Freq PRN Reason Stop Dose Admin Acetaminophen 650 mg 09/19/16 06:17 10/01/16 07:59 Tylenol Tab* PO 650 mg Q4H PRN Administration FEVER/HEADACHE Cholecalciferol 1,000 units 09/19/16 09:00 10/02/16 08:31 Vitamin D Tab* PO 1,000 units DAILY ANSHU Administration Heparin Sodium (Porcine) 1 ml 09/23/16 18:00 10/02/16 10:59 Heparin Flush Picc/Ml/Cvc(*) FLUSH 1 ml 0600,1800 ANSHU Administration Protocol Heparin Sodium (Porcine) 5,000 units 09/29/16 22:00 10/02/16 05:58 Heparin Vial(*) SUBCUT 5,000 units Q8HR ANSHU Administration Hydromorphone HCl 1 mg 09/24/16 14:38 10/01/16 10:43 Dilaudid Iv* IV SLOW PU 1 mg Q4H PRN Administration PAIN Ceftriaxone Sodium 1,000 mg/ 50 mls @ 200 mls/hr 10/01/16 08:00 10/02/16 08: 31 Sodium Chloride IVPB 200 mls/hr Q24HR@0800 ANSHU Administration Melatonin 3 mg 09/23/16 21:00 10/01/16 21:29 Melatonin (Nf) PO 3 mg BEDTIME ANSHU Administration Ondansetron HCl 4 mg 09/22/16 11:08 Zofran Inj* IV Q6H PRN NAUSEA Oxycodone HCl 5 mg 09/24/16 14:38 10/01/16 07:59 Roxycodone Tab* PO 5 mg Q4H PRN Administration PAIN Oxycodone HCl 10 mg 10/01/16 10:57 10/02/16 10:58 Roxycodone Tab* PO 10 mg Q4H PRN Administration PAIN Tamsulosin HCl 0.4 mg 09/21/16 18:00 10/01/16 17:20 Flomax Cap* PO 0.4 mg QPM ANSHU Administration Vital Signs Temp Pulse Resp BP Pulse Ox 97.9 F 85 16 127/60 95 10/02/16 12:02 03/18/17 12:02 10/02/16 12:58 10/02/16 12:02 10/02/16 12:02 OE: Pt in NAD, alert, awake, oriented x3 HEENT: PERRLA, No JVD Lungs: Diminished a/e at bases R>L, chest tube in place, draining serosanguinous fluid CVS: s1, S2+ Abd: Soft, BS+ Ext: Normal ROM Neuro: No focal defecits Skin: No rash Laboratory Results - last 24 hr 10/02/16 10/02/16 05:57 05:57 WBC 12.0 H RBC 3.07 L Hgb 9.5 L Hct 28 L MCV 92 MCH 31 MCHC 34 RDW 14 Plt Count 476 H MPV 8 Neut % (Auto) 80.9 Lymph % (Auto) 8.6 L Ness % (Auto) 9.2 H Eos % (Auto) 0.8 Baso % (Auto) 0.5 Absolute Neuts (auto) 9.7 H Absolute Lymphs (auto) 1.0 Absolute Monos (auto) 1.1 H Absolute Eos (auto) 0.1 Absolute Basos (auto) 0.1 Absolute Nucleated RBC 0 Nucleated RBC % 0 Sodium 131 L Potassium 4.0 Chloride 96 L Carbon Dioxide 30 Anion Gap 5 BUN 16 Creatinine 1.11 Est GFR ( Amer) 84.7 Est GFR (Non-Af Amer) 65.9 BUN/Creatinine Ratio 14.4 Glucose 143 H Calcium 8.4 L I/R: Pt is 66 y o m with lung abscess, empysema, multiloculated pleural effusion s/p chest tube placement and is undergoing tPA given loculated effusion Pt completed tPA through chest tube Rpt Ct chest, no change in loculated ant fluid collection Pt had pig tail inserted , not much could be drained as it was thick and fibrinous Pt had VATS, underwent mechanical decortication, cheezy and thick fibrinous stuff was removed Chest tube draining sero sanguinous fluid Post procedure CXR shows improved aeration No PTX was noted c/w abx
[2016-10-02] MEDS ORDERED: Docusate CAP* 100 MG PO ONE (17:25)
[2016-10-02] MEDS ORDERED: Senna TAB PO ONE (17:25)
[2016-10-02] MEDS: Tamsulosin CAP* 0.4 MG PO SCH (17:28)
--- NOTE | 2016-10-02 17:30 | PN ---
Subjective Date of Service: 10/02/16 Interval History: . sleeping soundly good spirits on awakening rounded with JUVENTINO Myers and Dr. Allen. No new c/o other than some constipation cough is occasionally productive CT in situ and draining ~ 100 cc/24 hours. good seal. appetite good. pain controlled expected to visit today. sign off to Dr. Garcia . Family History: Unchanged from Admission Social History: Unchanged from Admission Past Medical History: Unchanged from Admission Objective Active Medications: . Acetaminophen (Tylenol Tab*) 650 mg PO Q4H PRN PRN Reason: FEVER/HEADACHE Last Admin: 10/01/16 07:59 Dose: 650 mg Cholecalciferol (Vitamin D Tab*) 1,000 units PO DAILY [facility] Last Admin: 10/02/16 08:31 Dose: 1,000 units Heparin Sodium (Porcine) (Heparin Flush Picc/Ml/Cvc(*)) 1 ml FLUSH 0600,1800 [facility] PRN Reason: Protocol Last Admin: 10/02/16 10:59 Dose: 1 ml Heparin Sodium (Porcine) (Heparin Vial(*)) 5,000 units SUBCUT Q8HR [facility] Last Admin: 10/02/16 14:26 Dose: 5,000 units Hydromorphone HCl (Dilaudid Iv*) 1 mg IV SLOW PU Q4H PRN PRN Reason: PAIN Last Admin: 10/01/16 10:43 Dose: 1 mg Ceftriaxone Sodium 1,000 mg/ (Sodium Chloride) 50 mls @ 200 mls/hr IVPB Q24HR@ 0800 [facility] Last Admin: 10/02/16 08:31 Dose: 200 mls/hr Melatonin (Melatonin (Nf)) 3 mg PO BEDTIME [facility] Last Admin: 10/01/16 21:29 Dose: 3 mg Ondansetron HCl (Zofran Inj*) 4 mg IV Q6H PRN PRN Reason: NAUSEA Oxycodone HCl (Roxycodone Tab*) 5 mg PO Q4H PRN PRN Reason: PAIN Last Admin: 10/01/16 07:59 Dose: 5 mg Oxycodone HCl (Roxycodone Tab*) 10 mg PO Q4H PRN PRN Reason: PAIN Last Admin: 10/02/16 10:58 Dose: 10 mg Tamsulosin HCl (Flomax Cap*) 0.4 mg PO QPM [facility] Last Admin: 10/01/16 17:20 Dose: 0.4 mg . Vital Signs 10/01/16 10/01/16 10/01/16 19:20 19:58 20:00 Temperature 97.9 F Pulse Rate 81 Respiratory 16 20 18 Rate Blood Pressure 128/65 (mmHg) O2 Sat by Pulse 97 Oximetry 10/01/16 10/01/16 10/01/16 20:04 20:37 21:29 Temperature 99.3 F 98.1 F Pulse Rate Respiratory 20 Rate Blood Pressure (mmHg) O2 Sat by Pulse Oximetry Oxygen Devices in Use Now: Nasal Cannula - at 2 l Appearance: NAD Eyes: No Scleral Icterus Ears/Nose/Mouth/Throat: Clear Oropharnyx Neck: NL Appearance and Movements; NL JVP Respiratory: Symmetrical Chest Expansion and Respiratory Effort, - - R CT in situ - draining clear/red pleural fluid. < 150 cc in apparatus. + good cough. Cardiovascular: NL Sounds; No Murmurs; No JVD Abdominal: NL Sounds; No Tenderness; No Distention Lymphatic: No Cervical Adenopathy Extremities: No Edema Skin: No Rash or Ulcers Neurological: Alert and Oriented x 3 Lines/Tubes/Other Access: Clean, Dry and Intact Peripheral IV Nutrition: Taking PO's Result Diagrams: 10/02/16 05:57 10/02/16 05:57 Additional Lab and Data: . Microbiology and Other Data: Microbiology 09/20/16 16:20 Gram Stain - Final Misc Fluid (See Comment) - Aspirate Body Fluid Culture - Preliminary No Growth Day 1 09/20/16 16:20 Acid Fast Bacilli Smear - Final Respiratory - Aspirate 09/20/16 09:39 Acid Fast Bacilli Smear - Final Respiratory 09/20/16 11:00 Legionella Urinary Antigen - Final Urine Negative Legionella Streptococcus pneumoniae Ag Screen - Final Negative S. pneumo Antigen 09/20/16 09:30 Gram Stain - Final Sputum Expectorated Assess/Plan/Problems-Billing Assessment: Mr Mcdonnell is a 66 yo M who has a h/o OA, nephrolithiasis and history of lyme disease who presented to the ER wt c/o severe R sided chest pain in the setting of recently identified RLL lung masses. He was admitted for further management and evaluation of the lung mass and possible post obstructive pneumonia. later diagnosed with lung abscess, empyema, multiloculated pleural effusion s/p chest tube placement and underwent tPA given loculated effusion. Pt ompleted tPA through chest tube. Repeat Chest CT showed no change in loculated anterior fluid collection. Pt had pig tail inserted for anterior collection, but, unfortunately, not much was drained as it was thick and fibrinous. VATS on 09/30/16 with good results and no complication by Dr. Hayes. IV Abx ongoing. R Chest tube in place. Current Medications: - Acetaminophen (Tylenol Tab) 650 mg PO Q4H PRN FEVER/HEADACHE - Cholecalciferol (Vitamin D Tab) 1,000 units PO DAILY ANSHU - Heparin Sodium (Porcine) (Heparin Flush Picc/Ml/Cvc) 1 ml FLUSH 0600,1800 ANSHU - Heparin 5,000 units SUBCUT Q8HR - Hydromorphone HCl (Dilaudid Iv) 1 mg IV SLOW PU Q4H PRN PAIN - Ceftriaxone Sodium 1,000 mg/ (Sodium Chloride) IVPB Q24H ANSHU - Melatonin 3 mg PO BEDTIME ANSHU - Ondansetron HCl (Zofran Inj) 4 mg IV Q6H PRN NAUSEA - Oxycodone HCl (Roxycodone Tab) 5 mg PO Q4H PRN PAIN - Tamsulosin HCl (Flomax Cap) 0.4 mg PO QPM ANSHU - Senna 20 mg PO 10/02/16 - Colace 100 mg PO BID - Patient Problems (1) RLL pneumonia Current Visit: Yes Status: Acute Code(s): J18.1 - LOBAR PNEUMONIA, UNSPECIFIED ORGANISM SNOMED Code(s): 027673968 Comment: - Pleural fluid (empyema) culture is growing Streptococcus constellatus, [place]- SENSITIVE - Continue Ceftriaxone - Biopsy was negative for malignancy. - S/p chest tube placement 09/22/[address] Chaudhary. - S/p pigtail placement to anterior collection by Dr. Kenyon 09/28/16. - VATS 09/30/2016 with good results - Need to disucss total duration of abx with ID...previous estimate was for medical management before VATS was determined to be necessary. (2) DVT prophylaxis Current Visit: Yes Status: Acute Priority: High Code(s): GDN6947 - Comment: - SQ heparin. (3) BPH (benign prostatic hyperplasia) Current Visit: Yes Status: Acute Priority: High Code(s): N40.0 - BENIGN PROSTATIC HYPERPLASIA WITHOUT LOWER URINRY TRACT SYMP Comment: - Continue Flomax. (4) Full code status Current Visit: Yes Status: Acute Priority: High Code(s): Z78.9 - OTHER SPECIFIED HEALTH STATUS Status and Disposition: Inpatient.
[2016-10-02] MEDS ORDERED: Senna TAB ONE (17:31)
[2016-10-02] MEDS ORDERED: Docusate CAP* 100 MG ONE (17:31)
[2016-10-02] MEDS: CMCS: Melatonin (NF) 3 MG TAB PO SCH (20:17)
[2016-10-02] MEDS: Docusate CAP* 100 MG PO SCH (20:17)
[2016-10-03] MEDS: Heparin VIAL(*) 5000 UNITS/ML VIAL (FIVE THOUSAND) SUBCUT SCH ×3 (05:22→21:47)
[2016-10-03] MEDS: oxyCODONE TAB* 5 MG TAB PO PRN ×3 (07:21→21:48)
[2016-10-03] MEDS: Cholecalciferol TAB* 1000 UNITS PO SCH (07:21)
[2016-10-03] MEDS: Acetaminophen TAB* 325 MG PO PRN ×2 (07:21→11:32)
[2016-10-03] MEDS: Docusate CAP* 100 MG PO SCH ×2 (07:21→19:38)
[2016-10-03] MEDS: cefTRIAXone VIAL(*) 1,000 MG in NS 0.9% 50 ML* 50 ML IVPB SCH (07:22)
--- NOTE | 2016-10-03 12:48 | RAD ---
Indication: Assess for pneumothorax. Chest tube. Post placement of 10-Stateless pigtail drainage catheter in the medial anterior RIGHT pleural space September 28, 2016. Comparison: October 01, 2016 chest radiograph. Technique: Upright AP 0720 hours Report: RIGHT upper extremity PICC loops at the subclavian vein with the tip at the level of the axillary vein directed peripheral without change. Tip of large for RIGHT chest tube at level of apex medially. No additional RIGHT thorax chest tube or drainage catheter evident. Unchanged small peripheral probable loculated pleural fluid collection at the RIGHT mid to lower lung zone. Negative for pneumothorax. Unchanged moderate RIGHT lower lung zone atelectasis versus inflammatory infiltrate. Clear LEFT lung and pleural space. The heart, pulmonary vasculature, and mediastinal contours are unremarkable. IMPRESSION: 1. Unchanged coiled RIGHT upper extremity PICC with tip at level of the axillary vein directed peripherally. 2. Tip of large for RIGHT chest tube at level of apex medially. No additional RIGHT thorax chest tube or drainage catheter evident. Unchanged small peripheral probable loculated pleural fluid collection at the RIGHT mid to lower lung zone. Negative for pneumothorax. 3. RIGHT basilar atelectasis versus inflammatory infiltrate without change.
--- NOTE | 2016-10-03 16:13 | PN ---
Progress Note - Progress Note SOAP: Subjective: pt seen and examined. Feeling well. No significant pain. Objective: AF vss lungs clear at apices b/l chest tube: serous output, less [id number] output in approx 24hrs, no air leak dressing removed. port sites intact w/o redness abdo: soft/ND/NT CXR reviewed Assessment: POD3 R chest decortication Plan: continue chest tube- likely removal tomorrow abx will follow
[2016-10-03] MEDS: Tamsulosin CAP* 0.4 MG PO SCH (17:11)
--- NOTE | 2016-10-03 18:16 | PN ---
Subjective Date of Service: 10/03/16 Interval History: This is a 66 yo gentleman with a prolonged hospital stay due to empyema resistant to fibrinolytic therapy via CT and pigtail catheter placement who is now s/p VATS with chest tube still in place. Pleural fluid grew strep and patient has been treated with Ceftriaxone. Patient reports persistent R sided chest pain around the area of the chest tube. No significant dyspnea. No abdominal pain, n/v. Objective Active Medications: Acetaminophen (Tylenol Tab*) 650 mg PO Q4H PRN PRN Reason: FEVER/HEADACHE Last Admin: 10/03/16 11:32 Dose: 650 mg Cholecalciferol (Vitamin D Tab*) 1,000 units PO DAILY [facility] Last Admin: 10/03/16 07:21 Dose: 1,000 units Docusate Sodium (Colace Cap*) 100 mg PO BID [facility] Last Admin: 10/03/16 07:21 Dose: 100 mg Heparin Sodium (Porcine) (Heparin Flush Picc/Ml/Cvc(*)) 1 ml FLUSH 0600,1800 [facility] PRN Reason: Protocol Last Admin: 10/03/16 17:11 Dose: Not Given Heparin Sodium (Porcine) (Heparin Vial(*)) 5,000 units SUBCUT Q8HR [facility] Last Admin: 10/03/16 13:34 Dose: 5,000 units Hydromorphone HCl (Dilaudid Iv*) 1 mg IV SLOW PU Q4H PRN PRN Reason: PAIN Last Admin: 10/01/16 10:43 Dose: 1 mg Ceftriaxone Sodium 1,000 mg/ (Sodium Chloride) 50 mls @ 200 mls/hr IVPB Q24HR@ 0800 [facility] Last Admin: 10/03/16 07:22 Dose: 200 mls/hr Melatonin (Melatonin (Nf)) 3 mg PO BEDTIME [facility] Last Admin: 10/02/16 20:17 Dose: 3 mg Ondansetron HCl (Zofran Inj*) 4 mg IV Q6H PRN PRN Reason: NAUSEA Oxycodone HCl (Roxycodone Tab*) 5 mg PO Q4H PRN PRN Reason: PAIN Last Admin: 10/01/16 07:59 Dose: 5 mg Oxycodone HCl (Roxycodone Tab*) 10 mg PO Q4H PRN PRN Reason: PAIN Last Admin: 10/03/16 11:31 Dose: 10 mg Tamsulosin HCl (Flomax Cap*) 0.4 mg PO QPM ANSHU Last Admin: 10/03/16 17:11 Dose: 0.4 mg Vital Signs: Temp Pulse Resp BP Pulse Ox 97.6 F 76 22 126/60 97 10/03/16 16:13 10/03/16 16:13 10/03/16 16:13 10/03/16 16:13 10/03/16 16:13 Appearance: Well appearing, sitting at the side of his bed in NAD Respiratory: Symmetrical Chest Expansion and Respiratory Effort, - - R sided CT in place Cardiovascular: RRR Abdominal: NL Sounds; No Tenderness; No Distention Extremities: No Edema Neurological: Alert and Oriented x 3 Result Diagrams: 10/02/16 05:57 10/02/16 05:57 Additional Lab and Data: . Microbiology and Other Data: Microbiology 09/20/16 16:20 Gram Stain - Final Misc Fluid (See Comment) - Aspirate Body Fluid Culture - Preliminary No Growth Day 1 09/20/16 16:20 Acid Fast Bacilli Smear - Final Respiratory - Aspirate 09/20/16 09:39 Acid Fast Bacilli Smear - Final Respiratory 09/20/16 11:00 Legionella Urinary Antigen - Final Urine Negative Legionella Streptococcus pneumoniae Ag Screen - Final Negative S. pneumo Antigen 09/20/16 09:30 Gram Stain - Final Sputum Expectorated Diagnostic Imaging: Repeat CXR 10/03 - Essentially unchanged following VATS, small area of likely loculated fluid in the R chest perimeter. Assess/Plan/Problems-Billing Assessment: Mr Mcdonnell is a 66 yo M who has a h/o OA, nephrolithiasis and history of lyme disease who presented to the ER wt c/o severe R sided chest pain in the setting of recently identified RLL lung masses. He was admitted for further management and evaluation of the lung mass and possible post obstructive pneumonia. later diagnosed with lung abscess, empyema, multiloculated pleural effusion s/p chest tube placement and underwent tPA given loculated effusion. Pt ompleted tPA through chest tube. Repeat Chest CT showed no change in loculated anterior fluid collection. Pt had pig tail inserted for anterior collection, but, unfortunately, not much was drained as it was thick and fibrinous. VATS on 09/30/16 with good results and no complication by Dr. Hayes. IV Abx ongoing. R Chest tube in place. - Patient Problems (1) RLL pneumonia Comment: - Pleural fluid (empyema) culture is growing Streptococcus constellatus, [place]- SENSITIVE - Continue Ceftriaxone - Biopsy was negative for malignancy. - S/p chest tube placement 09/22/[address] Chaudhary. - S/p pigtail placement to anterior collection by Dr. Kenyon 09/28/16. - VATS 09/30/2016 with good results, chest tube is being followed by surgery, notes indicate possible removal tomorrow - Plan to clarify total duration of abx with ID (2) Empyema Comment: Secondary to PNA (3) BPH (benign prostatic hyperplasia) Comment: - Continue Flomax. Status and Disposition: Patient requires continued inpatient stay. If chest tube is pulled tomorrow, he may be appropriate for discharge in ~ 2days
[2016-10-03] MEDS: CMCS: Melatonin (NF) 3 MG TAB PO SCH (19:38)
[2016-10-04] MEDS: Heparin VIAL(*) 5000 UNITS/ML VIAL (FIVE THOUSAND) SUBCUT SCH ×2 (06:04→13:29)
[2016-10-04] MEDS: cefTRIAXone VIAL(*) 1,000 MG in NS 0.9% 50 ML* 50 ML IVPB SCH (07:58)
[2016-10-04] MEDS: Docusate CAP* 100 MG PO SCH (08:01)
[2016-10-04] MEDS: Cholecalciferol TAB* 1000 UNITS PO SCH (08:01)
[2016-10-04] MEDS: HYDROmorphone INJ* 1 MG/ML CARPUJECT SYRINGE IV SLOW PU PRN (09:37)
[2016-10-04 09:38] LABS: Hematocrit 29 % (42-52); Hemoglobin 9.8 g/dl (14.0-18.0); Mean Corpuscular HGB Conc 34 g/dl (31-36); Mean Corpuscular Hemoglobin 31 pg (27-31); Mean Corpuscular Volume 92 fL (80-94); Mean Platelet Volume 8 um3 (7.4-10.4); Red Blood Count 3.21 10^6/ul (4.0-5.4); Red Cell Distribution Width 14 % (10.5-15); White Blood Count 10.3 10^3/ul (3.5-10.8)
[2016-10-04 09:57] LABS: Calcium 8.9 mg/dL (8.6-10.3); EGFR African American 95.6 (>60); EGFR Non-African American 74.3 (>60); Potassium 4.1 mmol/L (3.5-5.0)
[2016-10-04 16:12] VITALS: BP 140/61
[2016-10-04] MEDS: Tamsulosin CAP* 0.4 MG PO SCH (17:26)
--- NOTE | 2016-10-04 17:49 | PN ---
Progress Note - Progress Note Note: Pulm consult f/u note 10/04/16. Pt seen and examined at bedside. Pt reports feeling better since VATS. Had chest tube removed today. Active Medications Generic Name Dose Route Start Last Admin Trade Name Freq PRN Reason Stop Dose Admin Acetaminophen 650 mg 09/19/16 06:17 10/03/16 11:32 Tylenol Tab* PO 650 mg Q4H PRN Administration FEVER/HEADACHE Cholecalciferol 1,000 units 09/19/16 09:00 10/04/16 08:01 Vitamin D Tab* PO 1,000 units DAILY ANSHU Administration Docusate Sodium 100 mg 10/02/16 21:00 10/04/16 08:01 Colace Cap* PO 100 mg BID ANSHU Administration Heparin Sodium (Porcine) 1 ml 09/23/16 18:00 10/04/16 17:10 Heparin Flush Picc/Ml/Cvc(*) FLUSH Not Given 0600,1800 [facility] Protocol Heparin Sodium (Porcine) 5,000 units 09/29/16 22:00 10/04/16 13:29 Heparin Vial(*) SUBCUT 5,000 units Q8HR ANSHU Administration Hydromorphone HCl 1 mg 09/24/16 14:38 10/04/16 09:37 Dilaudid Iv* IV SLOW PU 1 mg Q4H PRN Administration PAIN Ceftriaxone Sodium 1,000 mg/ 50 mls @ 200 mls/hr 10/01/16 08:00 10/04/16 07: 58 Sodium Chloride IVPB 200 mls/hr Q24HR@0800 ANSHU Administration Melatonin 3 mg 09/23/16 21:00 10/03/16 19:38 Melatonin (Nf) PO 3 mg BEDTIME ANSHU Administration Ondansetron HCl 4 mg 09/22/16 11:08 Zofran Inj* IV Q6H PRN NAUSEA Oxycodone HCl 5 mg 09/24/16 14:38 10/01/16 07:59 Roxycodone Tab* PO 5 mg Q4H PRN Administration PAIN Oxycodone HCl 10 mg 10/01/16 10:57 10/03/16 21:48 Roxycodone Tab* PO 10 mg Q4H PRN Administration PAIN Tamsulosin HCl 0.4 mg 09/21/16 18:00 10/04/16 17:26 Flomax Cap* PO 0.4 mg QPM ANSHU Administration Vital Signs Temp Pulse Resp BP Pulse Ox 98.1 F 81 16 140/61 96 10/04/16 15:19 10/04/16 15:19 10/04/16 15:19 10/04/16 15:19 10/04/16 15:19 O/E: Pt in NAD, alert, awake, oriented x3 HEENT: PERRLA, No JVD Lungs: Diminished a/e at bases R>L CVS: s1, S2+ Abd: Soft, BS+ Ext: Normal ROM Neuro: No focal defecits Skin: No rash Laboratory Results - last 24 hr 10/04/16 10/04/16 09:30 09:30 WBC 10.3 RBC 3.21 L Hgb 9.8 L Hct 29 L MCV 92 MCH 31 MCHC 34 RDW 14 Plt Count 527 H D MPV 8 Neut % (Auto) 80.2 Lymph % (Auto) 10.4 L [place] % (Auto) 7.8 Eos % (Auto) 0.9 Baso % (Auto) 0.7 Absolute Neuts (auto) 8.3 H Absolute Lymphs (auto) 1.1 Absolute Monos (auto) 0.8 Absolute Eos (auto) 0.1 Absolute Basos (auto) 0.1 Absolute Nucleated RBC 0.01 Nucleated RBC % 0.1 Sodium 133 Potassium 4.1 Chloride 98 L Carbon Dioxide 29 Anion Gap 6 BUN 13 Creatinine 1.00 Est GFR ( Amer) 95.6 Est GFR (Non-Af Amer) 74.3 BUN/Creatinine Ratio 13.0 Glucose 125 H Calcium 8.9 I/R: Pt is 66 y o m with lung abscess, empysema, multiloculated pleural effusion s/p chest tube placement and is undergoing tPA given loculated effusion Pt completed tPA through chest tube Rpt Ct chest, no change in loculated ant fluid collection Pt had pig tail inserted , not much could be drained as it was thick and fibrinous Pt had VATS, underwent mechanical decortication, cheezy and thick fibrinous stuff was removed Pt had chest tube removed today Pt to be d/regla home c/w abx
--- NOTE | 2016-10-05 13:09 | DS ---
DISCHARGE SUMMARY: DATE OF ADMISSION: 09/19/16 DATE OF DISCHARGE: 10/04/16 PRIMARY CARE PROVIDER: Dr. Leroy Harris. CONSULTING SURGEON: Dr. Hayes. CONSULTING INFECTIOUS DISEASE SPECIALIST: Dr. Amrit Daugherty. DISCHARGING PROVIDER: JENNIFER Gonzales SUPERVISING PHYSICIAN: Dr. Shaq Lewis. * (dictated by JENNIFER Gonzales) PRIMARY DISCHARGE DIAGNOSIS: Empyema secondary to right lower lobe pneumonia. SECONDARY DISCHARGE DIAGNOSIS: Benign prostatic hypertrophy. DISCHARGE MEDICATIONS: 1. Acetaminophen 650 mg p.o. q.4 hours as needed for pain or fever. 2. Vitamin C 1000 mg p.o. daily. 3. Mentax 1% cream applied topically each evening as needed. 4. Vitamin D3 1000 units p.o. daily. 5. Diclofenac 50 mg p.o. daily. 6. Multivitamin 1 tablet p.o. daily. 7. [place]-3 fatty acids 1 capsule p.o. daily. 8. Flomax 0.4 mg p.o. daily. 9. Ceftriaxone 1 g IV q.24 hours times a total of 4 weeks from the time of VATS , which will bring us through October 28. 10. Oxycodone 5 mg p.o. q.4 hours as needed for pain. MEDICATION CHANGES: 1. P.r.n. oxycodone. 2. Ceftriaxone times 4 weeks, through October 28. HOSPITAL IMAGIN. Chest x-ray, 09/19/16, shows increased density at the right lung base, which correlates with the mass on prior CT study, appears to be a new adjacent infiltrate as noted on prior CT scan. Recommend histologic sampling of the mass. 2. CT of the abdomen and pelvis, 09/19/16, shows interval increase in size of the mass present at right lung base. Recommend histologic sampling, new right pleural effusion and right basilar infiltrate and nonobstructing right renal calculus. 3. Chest x-ray at the time of discharge, 10/03/16, shows chest tube in place in the right hemithorax with small peripheral probable loculated pleural fluid collection in the right mid to lower lung zone, negative for pneumothorax and right basilar atelectasis versus inflammatory infiltrate without change. 4. Pathology shows purulent with marked acute inflammation compatible with empyema. Negative for malignancy. HOSPITAL COURSE: This is a 66-year-old gentleman with history of BPH, who presented with complaints of chest pain. The patient was awoken with sudden right- sided chest pain and pain was worse with deep inspiration as well as cough and some associated shortness of breath. Patient had a cough for about 2 to 3 weeks prior to his presentation at the emergency department. He had been evaluated for this cough about [address] of the chest was ordered at that time, which revealed a nodular mass in the right lower lobe and biopsy had been planned for the day after he was admitted. He had no history of chronic lung disease. Initial imaging done at the time of admission showed rapid progression of the size of this mass in the right lower lobe. Initial etiology was not clear. He did have leukocytosis with a white blood cell count of 12,600 and was briefly febrile with a temperature of 100.8 degrees Fahrenheit. The patient underwent fine needle aspiration of the right lower lobe mass, which was identified as multiple inflammatory cells most consistent with an abscess and negative for malignancy. The patient had a chest tube placed with fibrinolytic therapy with tPA through the chest tube. Unfortunately, there remained significant loculations. A pigtail catheter was placed by Interventional Radiology to focus on the largest pocket, but the pocket was so fibrinous, there was no drainage from the pigtail catheter. The patient eventually underwent a VATS procedure by Dr. Hayes on 09/30/16 and the exudative material was evacuated from the pleural cavity. Chest tube remained in place post procedurally. Pleural fluid grew strep and blood cultures remained negative. The patient was treated with ceftriaxone during his hospital stay. Volume of drainage eventually slowed and chest tube was removed by Dr. Hayes. Infectious Disease specialist, Dr. Daugherty, was involved and recommended a total of 4 weeks of IV antibiotics with ceftriaxone from the date of VATS procedure. DISPOSITION: The patient is being discharged to home where he lives with his . He requires daily infusions of ceftriaxone for a total of 4 weeks from the date of VATS, which was 09/30/16. This should bring us through to . The patient will receive home infusions. He requires close followup with his primary care provider as well as Infectious Disease specialist, Dr. Amrit Daugherty and General Surgery, Dr. Hayes. There was a small collection appreciated peripherally that was persistent at the time of discharge, but patient was largely asymptomatic. Repeat imaging would mostly depend on his clinical course. JENNIFER GONZALES CC: Dr. Harris; Dr. Hayes; Dr. Daugherty* [id number]/[facility] #: [id number] [facility]
== END 2016-10-04 19:15 | disposition home or self-care (01) | DRG 164 ==
LOC: ED 04:38 → MED 06:14 → ICU 09-30 20:57 → SSU 10-01 15:48
PROVIDERS: ADMIT Internal Medicine; ATTEND Internal Medicine
PROC: 0BBK3ZX Excision of Right Lung, Percutaneous Approach, Diagnostic (ICD-10-PCS; 2016-09-20)
PROC: 0W993ZZ Drainage of Right Pleural Cavity, Percutaneous Approach (ICD-10-PCS; 2016-09-21)
PROC: 0W9900Z Drainage of Right Pleural Cavity with Drainage Device, Open Approach (ICD-10-PCS; 2016-09-22)
PROC: 3E0L3GC Introduction of Other Therapeutic Substance into Pleural Cavity, Percutaneous Approach (ICD-10-PCS; 2016-09-22)
PROC: 05H733Z Insertion of Infusion Device into Right Axillary Vein, Percutaneous Approach (ICD-10-PCS; 2016-09-28)
PROC: 0BDN4ZZ Extraction of Right Pleura, Percutaneous Endoscopic Approach (ICD-10-PCS; principal; 2016-09-30 15:00)
DX: J85.1 Abscess of lung with pneumonia (principal); J90 Pleural effusion, not elsewhere classified; J95.812 Postprocedural air leak; J98.11 Atelectasis; I10 Essential (primary) hypertension; N40.0 Benign prostatic hyperplasia without lower urinary tract symptoms; Z87.442 Personal history of urinary calculi; M17.0 Bilateral primary osteoarthritis of knee; M19.042 Primary osteoarthritis, left hand; M19.041 Primary osteoarthritis, right hand; Z96.642 Presence of left artificial hip joint; H26.9 Unspecified cataract; Z82.49 Family history of ischemic heart disease and other diseases of the circulatory system; Z80.0 Family history of malignant neoplasm of digestive organs; Z83.6 Family history of other diseases of the respiratory system; Y84.8 Other medical procedures as the cause of abnormal reaction of the patient, or of later complication, without mention of misadventure at the time of the procedure
CPT/HCPCS: 36415; 49406; 71010; 71020; 71260; 74176; 76001; 76604; 77012; 80048; 80053; 80202; 81003; 82945; 83615; 83735; 83986; 84157; 85025; 85027; 85610; 85652; 85730; 86140; 86480; 86635; 86703; 87015; 87040; 87070; 87073; 87077; 87102; 87116; 87118; 87176; 87186; 87205; 87206; 87385; 87899; 88172; 88173; 88304; 88305; 89051; 93005; 94760; A9270-GY; C1751; J0456; J0696; J1170; J1644; J2060; J2270; J2310; J2405; J2997; J3010; J3370; J3465; J7639; Q9967

== ENCOUNTER 2017-05-11 13:26 | Emergency (ER) | payer OTHER ==
[2017-05-11 13:42] VITALS: BP 121/65
--- NOTE | 2017-05-11 14:19 | UC ---
Skin Complaint HPI - HPI Summary HPI Summary: PT FOUND A TICK ATTACHED TO LEFT HIP THIS MORNING AROUND 8AM. REMOVED IT ENTIRELY. STATES IT WAS ATTACHED FOR NO MORE THAN 12 HOURS. - History of Current Complaint Chief Complaint: UCSkin Time Seen by Provider: 05/11/17 13:36 Stated Complaint: TICK BITE Hx Obtained From: Patient Skin Exposure Onset/Duration: Hours Ago Onset Severity: Mild Current Severity: Mild Pain Intensity: 0 Pain Scale Used: 0-10 Numeric Location: Discrete - LEFT HIP Aggravating Factor(s): Nothing Associated Signs & Symptoms: Positive: Negative Related History: Insect Bite/Sting - Allergy/Home Medications Allergies/Adverse Reactions: Allergies Allergy/AdvReac Type Severity Reaction Status Date / Time No Known Allergies Allergy Verified 09/19/16 04:50 Review of Systems Constitutional: Negative Skin: Other - TICK BITE Respiratory: Negative Cardiovascular: Negative Gastrointestinal: Negative Musculoskeletal: Negative Neurological: Negative All Other Systems Reviewed And Are Negative: Yes PMH/Surg Hx/FS Hx/Imm Hx Previously Healthy: Yes Other History Of: Negative For: HIV, Hepatitis B, Hepatitis C, Anticoagulant Therapy - Surgical History Surgical History: Yes Surgery Procedure, Year, and Place: 1949 REATTACHMENT [place] HAND- - [facility] [place]. 1986 RIGHT [place]GU[place]PAIR- [facility] [place]. 1984 & 1997 [place], AND [facility]. 2009 PARTIAL AMPUTATION OF LEFT THUMB- [facility]. 09/2014 LEFT TOTAL HIP [facility]PLACEMENT- [facility]. 12/12/2015 BLADDER STONE REMOVED [facility] - Family History Known Family History: Positive: Cardiac Disease Negative: Hypertension, Diabetes - Social History Alcohol Use: Daily Alcohol Amount: 2 beers Substance Use Type: None Smoking Status (MU): Never Smoked Tobacco Have You Smoked in the Last Year: No - Immunization History Most Recent Influenza Vaccination: fall 2015 Most Recent Tetanus Shot: 2013 Most Recent Pneumonia Vaccination: 2013 Physical Exam Triage Information Reviewed: Yes Appearance: Well-Appearing, No Pain Distress, Well-Nourished Vital Signs: Initial Vital Signs Temp 98.4 F 05/11/17 13:38 Pulse 62 05/11/17 13:38 Resp 16 05/11/17 13:38 BP 121/65 05/11/17 13:38 Pulse Ox 99 05/11/17 13:38 Vital Signs Reviewed: Yes Eyes: Positive: Conjunctiva Clear ENT: Positive: Hearing grossly normal Neck: Positive: Supple Respiratory: Positive: No respiratory distress, No accessory muscle use Cardiovascular: Positive: Pulses Normal Abdomen Description: Positive: Soft Musculoskeletal: Positive: No Edema Neurological: Positive: Alert Psychological: Positive: Age Appropriate Behavior Skin: Negative: rashes Course/Dx - Diagnoses Provider Diagnoses: TICK BITE Discharge - Discharge Plan Condition: Stable Disposition: HOME Patient Education Materials: Tick Bite (ED) Referrals: Manpreet Easley MD [Medical Doctor] - If Needed Additional Instructions: TICK BITE PROPHYLAXIS The Infectious Disease Society of [place] (IDSA) does not generally recommend antimicrobial prophylaxis for prevention of Lyme disease after a recognized tick bite. However, in areas that are highly endemic for Lyme disease, a single dose of doxycycline may be offered to adult patients (200 mg) who are not and to children older than 8 years of age (4 mg/kg up to a maximum dose of 200 mg) when all of the following circumstances exist: CRITERIA FOR RECEIVING PROPHYLACTIC TREATMENT FOR LYME DISEASE 1) TICK ATTACHED FOR AT LEAST 36 HRS 2) TICK IS AN ADULT OR [place] DEER TICK 3) YOU LIVE IN AN AREA WHERE LYME DISEASE IS PREVALENT (i.e., [place], [place], [place], [place], [place] , [place], [place], [place], [place], [place], [place], [place], [place], [place]) 4) YOU HAVE NO CONTRAINDICATION TO THE MEDICATION (DOXYCYCLINE) 5) PROPHYLAXIS IS BEGUN WITHIN 72 HRS OF TICK REMOVAL SINCE YOU DO NOT MEET ALL THESE CRITERIA THERE IS NO NEED TO GIVE YOU PROPHYLACTIC ANTIBIOTICS. YOUR CHANCES OF DEVELOPING LYME DISEASE ARE EXTREMELY SMALL. BE VIGILANT OF YOUR SYMPTOMS AND DON'T HESITATE TO GET SEEN AGAIN IF YOU DEVELOP UNEXPLAINED FEVER, HEADACHE, JOINT PAIN, BODY ACHES, RASH OR ANY OTHER CONCERNING SYMPTOMS. Antibiotic treatment following a tick bite is not recommended as a means to prevent anaplasmosis, babesiosis, ehrlichiosis, or [place] spotted fever. There is no evidence this practice is effective, and it may simply delay onset of disease. Instead, persons who experience a tick bite should be alert for symptoms suggestive of tickborne illness and consult a physician if fever, rash, or other symptoms of concern develop.
== END 2017-05-11 14:15 | disposition home or self-care (01) ==
LOC: UCEAST 13:26
DX: S70.362A Insect bite (nonvenomous), left thigh, initial encounter (principal); W57.XXXA Bitten or stung by nonvenomous insect and other nonvenomous arthropods, initial encounter; Y92.9 Unspecified place or not applicable
CPT/HCPCS: 99211; G0463

== ENCOUNTER 2019-01-18 09:57 | Emergency (ER) | payer OTHER ==
[2019-01-18 10:06] VITALS: BP 144/80
--- NOTE | 2019-01-18 11:10 | UC ---
UC General HPI - HPI Summary HPI Summary: RN notes - has rash on upper left thigh concerned may have been bitten by a tick Notes L thigh rash x 1 day. No fever / chills. Thinks bit by tick. No sob / cp / palpitations. Has been rx'd for lyme in the past, including IV abx approx 3 years ago. - History of Current Complaint Chief Complaint: UCRash Stated Complaint: TICK BITE Time Seen by Provider: 01/18/19 11:08 Hx Obtained From: Patient Pain Intensity: 0 - Allergy/Home Medications Allergies/Adverse Reactions: Allergies Allergy/AdvReac Type Severity Reaction Status Date / Time No Known Allergies Allergy Verified 01/18/19 10:07 PMH/Surg Hx/FS Hx/Imm Hx Previously Healthy: No - see hpi Other History Of: Negative For: HIV, Hepatitis B, Hepatitis C, Anticoagulant Therapy - Surgical History Surgical History: Yes Surgery Procedure, Year, and Place: 1949 REATTACHMENT OF RIGHT HAND- - [facility] [place]. 1986 RIGHT INGUINAL [place]IA [place]PAIR- [facility] [place]. 1984 & 1997 [place] [facility] [place]. 2009 PARTIAL AMPUTATION OF LEFT THUMB- [facility]. 09/2014 LEFT TOTAL HIP REPLACEMENT- [facility]. 12/12/2015 [facility] REMOVED [facility], LITHOTRIPSY 2014 - Family History Known Family History: Positive: Cardiac Disease Negative: Hypertension, Diabetes - Social History Alcohol Use: Daily Alcohol Amount: 2 beers Substance Use Type: None Smoking Status (MU): Never Smoked Tobacco Have You Smoked in the Last Year: No - Immunization History Most Recent Influenza Vaccination: fall 2015 Most Recent Tetanus Shot: 2013 Most Recent Pneumonia Vaccination: 2013 Review of Systems All Other Systems Reviewed And Are Negative: Yes Constitutional: Positive: Negative Skin: Positive: Other - see hpi Eyes: Positive: Negative ENT: Positive: Negative Respiratory: Positive: Negative Cardiovascular: Positive: Negative Gastrointestinal: Positive: Negative Genitourinary: Positive: Negative Motor: Positive: Other - see hpi Neurovascular: Positive: Negative Musculoskeletal: Positive: Arthralgia - R 1st mtp Neurological: Positive: Negative Psychological: Positive: Negative Is Patient Immunocompromised?: No Physical Exam Triage Information Reviewed: Yes Appearance: Well-Appearing, Well-Nourished Vital Signs: Initial Vital Signs Temp 97.2 F 01/18/19 10:03 Pulse 51 01/18/19 10:03 Resp 16 01/18/19 10:03 BP 144/80 01/18/19 10:03 Pulse Ox 100 01/18/19 10:03 Vital Signs Reviewed: Yes Eye Exam: Normal ENT Exam: Normal Neck exam: Normal Respiratory Exam: Normal - rr regular, no tachypnea, no dyspnea Cardiovascular Exam: Normal - hr regular, nondiaphoretic Abdominal Exam: Normal Musculoskeletal Exam: Normal - moves x 4 ext's. C/o pain Distal R 1st MTP Neurological Exam: Normal - grossly nonfocal, detailed n/a Psychological Exam: Normal - conversing easily and appropriately Skin Exam: Other - Rash approx 4.5cm x 6cm L thigh, red both blanching and nonblanching. Slightly warm but not hot to touch. Course/Dx - Course Course Of Treatment: Reviewed coa / tx plan. Mr. 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 Will check tick panel / lyme. Re R great toe 1st mtp discomfort, will add uric acid level to blood work (d/w pt). - Diagnoses Provider Diagnosis: Tick bite, Rash Discharge - Sign-Out/Discharge Documenting (check all that apply): Patient Departure All imaging exams completed and their final reports reviewed: No Studies - Discharge Plan Condition: Stable Disposition: HOME Prescriptions: DOXYcycline CAP(*) [DOXYcycline 100MG CAP(*)] 100 mg PO BID #56 cap Patient Education Materials: Tick Bite (ED), Acute Rash (ED), Arthralgia (ED) Referrals: Ann Pelayo MD [Primary Care Provider] - Additional Instructions: Please follow up with your primary care physician, call for appointment in the next 1-2 weeks. Seek medical attention for worse or new problems. Check with pharmacist about timing of doxycycline and supplements. Avoid prolonged sun exposure while taking doxycycline. Hydrate. - Billing Disposition and Condition Condition: STABLE Disposition: Home
--- NOTE | 2019-01-20 07:26 | UC ---
- Progress Note Progress Note: INITIAL LYME SEROLOGY POSITIVE. PT ALREADY ON DOXY. CONFIRMATORY TESTING PENDING. NO CHANGE IN MGMT. Course/Dx - Diagnoses Provider Diagnoses: Tick bite, Rash Discharge - Sign-Out/Discharge Documenting (check all that apply): Post-Discharge Follow Up All imaging exams completed and their final reports reviewed: No Studies - Discharge Plan Condition: Stable Disposition: HOME Prescriptions: DOXYcycline CAP(*) [DOXYcycline 100MG CAP(*)] 100 mg PO BID #56 cap Patient Education Materials: Tick Bite (ED), Acute Rash (ED), Arthralgia (ED) Referrals: Ann Pelayo MD [Primary Care Provider] - Additional Instructions: Please follow up with your primary care physician, call for appointment in the next 1-2 weeks. Seek medical attention for worse or new problems. Check with pharmacist about timing of doxycycline and supplements. Avoid prolonged sun exposure while taking doxycycline. Hydrate. - Billing Disposition and Condition Condition: STABLE Disposition: Home
[2019-01-22 10:16] LABS: Anaplasma phagocytophilum Negative (Negative); B. miyamotoi PCR, B Negative (Negative); Babesia divergens/MO-1 Negative (Negative); Babesia ducani Negative (Negative); Ehrlichia chaffeensis Negative (Negative); Ehrlichia ewingii/canis Negative (Negative); Ehrlichia muris eauclairensis Negative (Negative)
== END 2019-01-18 11:35 | disposition home or self-care (01) ==
LOC: UCEAST 09:57
DX: R21 Rash and other nonspecific skin eruption (principal); T63.481A Toxic effect of venom of other arthropod, accidental (unintentional), initial encounter; Y92.9 Unspecified place or not applicable
CPT/HCPCS: 36415; 84550; 86617; 86618; 87798; 99212; G0463

== ENCOUNTER 2019-09-24 10:37 | Day surgery (SDC) | payer OTHER ==
--- NOTE | 2019-09-12 14:42 | HP ---
CC: Dr. Pelayo * PREOPERATIVE HISTORY AND PHYSICAL: DATE OF ADMISSION/SURGERY: 09/24/19 This patient is scheduled for same-day surgery admission by Dr. Chaudhary on 09/23. DATE OF PREOPERATIVE HISTORY AND PHYSICAL EXAMINATION: 09/12/19. ATTENDING SURGEON: Dr. Micheal Chaudhary * (dictated by Jesica Spears NP). CHIEF COMPLAINT: Recurrent right groin hernia. HISTORY OF PRESENT ILLNESS: The patient is a 69-year-old male with a history of open right inguinal hernia repair in 1986; he has a history of benign prostatic hypertrophy and was at a urology office followup recently and was found to have a recurrence of the right inguinal hernia. The patient states that it has not been painful, but if he bumps the area he notes tenderness. He reports loose stools are typical for him with no change. He denies any nausea or vomiting. 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 Dr. Chaudhary has examined the patient and notes a right groin bulge consistent with hernia; Dr. Chaudhary discussed the findings with the patient and has recommended robotic repair of the recurrent right inguinal hernia with mesh as a same-day surgery procedure using general anesthesia. Dr. Chaudhary discussed the nature of the surgical procedure, the rationale for the procedure , the use of mesh, the relevant risks and benefits and today, I reviewed the typical postoperative care and recovery. The patient has had a chance to ask questions and stated that he understands the information and is satisfied with the answers given to his questions. He will sign surgical consent on the day of surgery. PAST MEDICAL HISTORY: Benign prostatic hypertrophy, kidney stones, asthma with no recent flare-ups, osteoarthritis in his hands and knees, empyema requiring thoracoscopy and evacuation in 2017. 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 MEDICATIONS: 1. Diclofenac 50 mg 1 tablet daily. 2. Tamsulosin 0.4 mg 1 capsule daily. 3. Vitamin C 100 mg daily. [address] Minerals daily. 5. Acetaminophen 325 mg as needed. ALLERGIES: No known drug allergies. FAMILY HISTORY: Father with a history of diabetes. Mother with a history of colon cancer and heart disease. No known anesthesia complications, bleeding tendencies, or clotting disorders. SOCIAL HISTORY: He is and retired. He has never been a smoker. He drinks 2 to 3 alcoholic beverages per day and denies the use of other substances. REVIEW OF SYSTEMS: A 14-point review completed and significant for changes as noted in history of present illness, otherwise negative. General: No history of anesthesia complications, bleeding tendencies, or clotting disorders. PHYSICAL EXAMINATION GENERAL SURVEY: The patient is a 69-year-old male, well developed, well nourished, in no acute distress. VITAL SIGNS: Height 70 inches, weight 172 pounds, body mass index 24.7. Blood pressure 138/80, pulse 64 and regular, respiratory rate 16, temperature 97.8 tympanic. HEENT: Benign. NECK: Supple. No cervical lymphadenopathy. LUNGS: Breath sounds bilaterally clear and equal. HEART: Regular rate and rhythm. No murmurs or rubs appreciated. ABDOMEN: Active bowel sounds. Soft, nondistended, nontender throughout. No obvious masses, organomegaly, or evidence of umbilical hernia. GENITOURINARY: Inguinal exam done by Dr. Chaudhary revealed a well-healed scar in the right groin with a plum-sized bulge incompletely reducible consistent with inguinal hernia. No palpable left inguinal hernia. Bilateral descended testes. RECTAL: Exam deferred. EXTREMITIES: Warm without edema or skin ulceration. NEUROLOGIC: Alert and oriented x3. Steady gait. SKIN: Warm, dry, intact. IMPRESSION: Recurrent right inguinal hernia. PLAN: Same-day surgery admission to Dr. Chaudhary' service on 09/24/19 for robotic repair of recurrent right inguinal hernia with mesh. AMIRA SPEARS, DORINA [id number]/[facility] #: [id number] ELLIE
[~2019-09-24 10:37] MED LIST: Buffered Lidocaine 1% SYRIN* 1 ML/SYRINGE INTRADERM ONE; Bupivacaine 0.25% SDV* 30 ML ONE; Dexamethasone IV* 4 MG/ML 1 ML (4 MG) ONE; Ketorolac INJ* 30 MG/ML 1 ML VIAL ONE; Lactated Ringers 1000 ML Bag* 1,000 ML IV SCH; Ondansetron INJ* 2 MG/ML VIAL ONE; Propofol* 10 MG/ML 20 ML BTL ONE; ceFAZolin 2 GM PREMIX in ORs 2 GM/50 ML BAG ONE
[2019-09-24] MEDS ORDERED: fentaNYL* 50 MCG/ML 2 ML VIAL (100 MCG VIAL) ONE (10:38)
[2019-09-24] MEDS ORDERED: Sugammadex * 200 MG/2 ML VIAL IV PUSH ONE (10:38)
[2019-09-24] MEDS ORDERED: Rocuronium* 10 MG/ML VIAL ONE (10:39)
[2019-09-24] MEDS ORDERED: Succinylcholine* 20 MG/ML 10 ML VIAL ONE (10:40)
[2019-09-24] MEDS ORDERED: Naloxone* 0.4 MG/ML 1 ML VIAL IV PRN (11:53)
[2019-09-24] MEDS ORDERED: oxyCODONE/Acetamin 5/325 MG* TAB PO PRN (11:53)
[2019-09-24] MEDS ORDERED: fentaNYL* 50 MCG/ML 2 ML VIAL (100 MCG VIAL) IV PRN (11:53)
[2019-09-24 14:18] VITALS: BP 132/74
--- NOTE | 2019-09-26 10:27 | OP ---
CC: Dr. Pelayo * DATE OF OPERATION: 09/24/19 - [facility] DATE OF : 46 SURGEON: Micheal Chaudhary MD FURNACE CONVERTER: CAROLIN Camacho ANESTHESIOLOGIST: Dr. Evangelista. ANESTHESIA: General endotracheal. PRE-OP DIAGNOSIS: Recurrent right inguinal hernia. POST-OP DIAGNOSIS: Recurrent right inguinal hernia. OPERATIVE PROCEDURE: Robotic repair of recurrent right inguinal hernia with mesh. ESTIMATED BLOOD LOSS: Minimal. IV FLUIDS: Crystalloids. SPECIMEN: None. DRAINS: None. COMPLICATIONS: None. COUNTS: Instrument, needle, and sponge counts correct. OPERATIVE FINDINGS: Direct right inguinal hernia. DESCRIPTION OF PROCEDURE: The patient was brought to the operating room and placed on the table supine. Sequential compression devices were placed on both lower extremities and general anesthesia was administered. The patient's abdomen was prepped and draped in the usual sterile fashion. He was positioned and padded appropriately. He received appropriate intravenous antibiotics. A time-out was performed. Local anesthetic was infiltrated into the skin and soft tissue prior to making each incision. Entry into the abdomen was through a left upper quadrant incision accommodating an 8 mm optical trocar. After accessing the peritoneal cavity, carbon dioxide was insufflated to a pressure of 12 mmHg. Under direct visualization, 2 additional 8 mm trocars were placed across the upper abdomen in the midline and the right upper quadrant. Inspection revealed that there was a direct right inguinal hernia. Medtronic anatomic right-sided ProGrip mesh was introduced. V-Loc 90 suture was introduced and the robot was docked. Dissection proceeded with the opening of the peritoneal flap approximately 8 cm above the inguinal ligament. Blunt dissection was used to develop this plane and dissection proceeded down to the midline to the symphysis pubis. Laterally , the direct inguinal hernia was encountered and this had peritoneal sac and preperitoneal fat stuck within and this was reduced. The spermatic cord components were identified laterally and preserved. The inferior epigastric vessel was preserved anteriorly. Dissection proceeded laterally to the anterior superior iliac spine. After creating an adequate flap for the mesh, the mesh was positioned to cover direct, indirect and femoral spaces. The peritoneal flap was then closed with the 3-0 V-Loc 90 suture. This was run to and fro. The needle was retrieved. The ports were then removed under direct visualization and carbon dioxide was released. Skin incisions were closed with 4-0 Monocryl in subcuticular fashion and Steri- Strips applied. The patient tolerated the procedure well. [id number]/[facility] #: [id number] [facility]
== END 2019-09-24 15:00 | disposition home or self-care (01) ==
LOC: OR 10:37
PROVIDERS: ATTEND Surgery
DX: K40.31 Unilateral inguinal hernia, with obstruction, without gangrene, recurrent (principal); N40.0 Benign prostatic hyperplasia without lower urinary tract symptoms; J45.909 Unspecified asthma, uncomplicated; M17.0 Bilateral primary osteoarthritis of knee; M19.042 Primary osteoarthritis, left hand; M19.041 Primary osteoarthritis, right hand; Z96.642 Presence of left artificial hip joint; Z87.442 Personal history of urinary calculi; Z79.1 Long term (current) use of non-steroidal anti-inflammatories (NSAID)
CPT/HCPCS: C1781; J0330; J0690; J1100; J1885; J2405; J2704; J3010; J3490